=== PATIENT | male | born 1935 | race Caucasian/White ===

== ENCOUNTER 2017-08-10 13:09 | Observation (INO) ==
--- NOTE | 2017-08-10 14:25 | Emergency Department Note ---
Disposition Clinical Impression: Compression fracture Concussion without loss of consciousness Qualifiers: Encounter type: initial encounter Qualified Code(s): S06.0X0A - Concussion without loss of consciousness, initial encounter GI bleed Qualifiers: GI bleed type/associated pathology: unspecified gastrointestinal hemorrhage type Qualified Code(s): K92.2 - Gastrointestinal hemorrhage, unspecified Anemia Qualifiers: Anemia type: unspecified type Qualified Code(s): D64.9 - Anemia, unspecified Syncope Qualifiers: Syncope type: unspecified Qualified Code(s): R55 - Syncope and collapse Fall Qualifiers: Encounter type: initial encounter Qualified Code(s): W19.XXXA - Unspecified fall, initial encounter Disposition: Admitted As Inpatient Condition: Good Time of Disposition: 17:46 Fall HPI - General Chief Complaint: ED Fall Stated Complaint: skin tear s/p fall, back pain Time Seen by Provider: 08/10/17 14:11 Source: patient Mode of arrival: ambulatory Limitations: no limitations Nursing Notes Reviewed: Yes Vital Signs Reviewed: Yes - History of Present Illness HPI Narrative: Patient is an 81-year-old male who presents to [facility] ED with a chief complaint of fall. Patient was walking from the porch over to the kitchen when all of a sudden he went down. States he does not know what happened. Daughter states they are concerned because patient has been complaining of being more wobbly over the last weeks. He has had history of prior stroke with residual right-sided weakness. States he is supposed to walk around with a cane but he refuses to do so most of the time. Denies any chest pain, difficulty breathing, abdominal pain, problems with nausea or vomiting. No fever or chills. Patient complaining of recurrent right arm pain due to the laceration as well as lower back pain. Pt Subjective Complaint: fall Onset (ago): [employer] Fall From: standing Fall Witnessed: no Place Fall Occurred: home Loss of Consciousness: unsure Prolonged Down Time?: no Symptoms Prior to Fall: lightheadedness Location of injury: back Severity: moderate Quality: aching Associated symptoms (after fall): Reports: lightheaded. Denies: headache, neck pain, chest pain, shortness of breath, abdominal pain - Related Data Home Medications Medication Instructions Recorded Confirmed Aspirin [Lo-Dose Aspirin EC] 81 mg PO DAILY 08/10/17 08/10/17 Atorvastatin [Lipitor] 40 mg PO HS 08/10/17 08/10/17 Clopidogrel [Plavix] 75 mg PO DAILY 08/10/17 08/10/17 Multivit-Min/FA/Lycopen/Lutein [A 1 tab PO DAILY 08/10/17 08/10/17 Thru Z Select Men 50+ Tablet] Allergies Allergy/AdvReac Type Severity Reaction Status Date / Time No Known Allergies Allergy Verified 08/10/17 13:16 All systems ED: reviewed and negative except as stated. Fall PMH - Past Medical History Medical history: Reports: CVA, hypertension Psychiatric history: Reports: no psych history - Social History Smoking Status: Never smoker Alcohol use: Reports: none Drug use: Reports: none Physical Exam - General Limitations: no limitations General appearance: alert, in no apparent distress - Head Head exam: atraumatic, normocephalic, normal inspection - Eye Eye exam: Present: normal appearance, EOMI - ENT ENT exam: normal exam, normal oropharynx, mucous membranes moist - Neck Neck exam: Present: normal inspection, full ROM, trachea midline - Chest Chest inspection: Present: normal inspection, symmetric chest wall rise - Respiratory Respiratory exam: Present: normal lung sounds bilaterally - Cardiovascular Cardiovascular exam: Present: normal rhythm, tachycardia, normal heart sounds - Abdominal Exam Abdominal exam: Present: soft, Non-Tender. Absent: tenderness, distention, guarding, rebound, rigidity - Extremities Exam Extremities exam: Present: normal inspection, full ROM. Absent: tenderness, pedal edema - Expanded Upper Extremity Exam Forearm/Wrist exam: Present: laceration (9 cm laceration curvilinear) - Back Exam Back exam: Present: normal inspection, full ROM. Absent: tenderness - Neurological Exam Neurological exam: Present: alert, oriented X3 - Psychiatric Psychiatric exam: Present: normal affect, normal mood - Skin Skin exam: Present: warm, dry, pallor Course Course Narrative: Patient seen and examined. Tachycardic upon my exam. Denies any chest pain or difficulty breathing. Had a syncopal episode that was unprovoked and no prodromal symptoms. Cardiopulmonary workup initiated. Patient has a large skin tear to the right forearm. We will update tetanus and suture. Patient having some mid back pain. We will go ahead and do a CT of the head and lumbar spine. - Reevaluation(s) Reevaluation #1: Patient was grossly abnormal with his orthostatics. Standing, his blood pressure dropped to 89/46 with a pulse of 1:30. Liter of IV fluids was ordered. Head CT unremarkable. Lumbar CT shows some indeterminate compression fractures. Lab work shows a hemoglobin of 5.7. 2 units of packed rbc's ordered. I went back to ask the patient states he has any bleeding recently. He admits that he has had intermittent bleeds through his colon. Has not talked with his primary care physician about it because he thought he could wait until his appointment in October. I discussed with the endoscopist Dr. Oliver who states he will discuss with gastroenterology about scoping. Consult placed for gastroenterology. I discussed with the hospitalist Dr. Campa who has accepted patient for admission. Time: 17:42 Vital Signs Temperature 98.1 F 08/10/17 13:16 Pulse Rate 91 08/10/17 13:16 Respiratory Rate 20 08/10/17 13:16 Blood Pressure 136/58 08/10/17 13:16 O2 Sat by Pulse Oximetry 99 08/10/17 13:16 Temperature 98.6 F 08/10/17 17:34 Pulse Rate 116 08/10/17 17:40 Respiratory Rate 16 08/10/17 17:40 Blood Pressure 130/63 08/10/17 17:40 O2 Sat by Pulse Oximetry 98 08/10/17 17:40 Oxygen Delivery Oxygen Delivery Room Air Procedures - Laceration Laceration 1 Side (If applicable): right Size (cm): 9 Description: linear Depth: simple, single layer Local Anesthetic: lidocaine 1% Amount of Anesthesia Used (mL): 10 Pre-repair: wound explored, irrigated extensively, deep structures intact Skin layer closed with: nylon Size: 4-0 Number of sutures/abdiel: 17 Technique: simple, interrupted Fall - Medical Records Medical records reviewed: Yes I reviewed the patient's medical records. - Lab Data Lab results reviewed: Yes I reviewed the patient's lab results. Result diagrams: 08/10/17 14:40 08/10/17 14:40 Lab Results 08/10/17 08/10/17 08/10/17 Range/Units 14:40 14:40 15:58 WBC 11.3 H (4.3-11.1) K/mcL RBC 2.78 L (4.19-5.50) M/mcL Hgb 5.7 L* (12.9-16.9) g/dL Hct 19.5 L (37.5-50.1) % MCV 70.1 L (83.0-100.0) fL MCH 20.5 L (28.0-33.3) pg MCHC 29.2 L (31.6-35.5) g/dL RDW 16.4 H (11.5-14.5) % Plt Count 325 (140-400) K/mcL MPV 9.2 L (9.4-12.4) fL Immature Gran % 1.0 (0-4) % Seg Neutrophils % 77.3 % Lymphocytes % 15.4 % Monocytes % 6.0 % Eosinophils % 0.2 % Basophils % 0.1 % Neutrophils # 8.7 (1.6-8.9) K/mcL Lymphocytes # 1.7 (0.6-4.6) K/mcL Monocytes # 0.7 (0.0-1.3) K/mcL Eosinophils # 0.0 (0.0-0.6) K/mcL Basophils # 0.0 (0.0-0.2) K/mcL Nucleated RBCs/100 WBC 0.2 H (0) /100 WBC Platelet Estimate Normal (Normal) Hypochromasia Present A (Not Present) Anisocytosis 1+ A (Not Present) Microcytosis Present A (Not Present) Sodium 135 L (136-145) mEq/L Potassium 4.6 (3.5-5.1) mEq/L Chloride 106 (98-107) mEq/L Carbon Dioxide 21 L (23-29) mEq/L BUN 28 H (8-23) mg/dL Creatinine 1.07 (0.70-1.30) mg/dL Est GFR ( Amer) > 60 (> 60) Est GFR (Non-Af Amer) > 60 (> 60) BUN/Creatinine Ratio 26 (6-26) Glucose 106 H (70-105) mg/dL Calculated Osmolality 286 (280-300) Calcium 8.6 (8.6-10.3) mg/dL Iron < 10 L (65-175) mcg/dL % Saturation TNP Transferrin 330 (203-362) mg/dL Troponin I < 0.03 (< 0.04) ng/mL Blood Type O POSITIVE Antibody Screen NEGATIVE Crossmatch See Detail - Radiology Data Radiology results reviewed: Yes I reviewed the patient's radiology results. Chest X-Ray 08/10/17 14:21 IMPRESSION: No acute process. D/ / Gricelda Sibley MD / Gricelda Sibley MD Interpreting Provider: Gricelda Sibley MD Head CT 08/10/17 14:21 IMPRESSION: No acute intracranial abnormality. Mild atrophy and white matter changes consistent with chronic small vessel ischemic disease, similar in appearance. D/ / Gricelda Sibley MD / Gricelda Sibley MD Interpreting Provider: Gricelda Sibley MD Lumbar Spine CT 08/10/17 14:21 IMPRESSION: There is mild compression fracture involving the T12 vertebral body which is age indeterminate. Clinical correlation for focal point tenderness at this site recommended. If indicated, MRI may be helpful to evaluate for acuity and potential vertebral augmentation. Remote L2 and L4 compression fractures and multilevel degenerative changes in the lumbar spine. D/ / Gricelda Sibley MD / Gricelda Sibley MD Interpreting Provider: Gricelda Sibley MD - EKG Data EKG attestation: Yes I reviewed and interpreted this EKG. EKG results narrative: EKG done at 1437 shows normal sinus rhythm with a rate of [address] elevation or depression. Normal axis. Unchanged from prior EKG done 2014.
[2017-08-10] MEDS ORDERED: Lidocaine 1% 20 ML MDV ID ONE (14:27)
[2017-08-10 14:52] LABS: Basophils % 0.1 %; Mean Platelet Volume 9.2 fL (9.4-12.4); Nucleated Red Blood Cells 0.2 /100 WBC (0)
[2017-08-10 14:53] LABS: Eosinophils % 0.2 %; Hematocrit 19.5 % (37.5-50.1); Lymphocytes % 15.4 %; Mean Corpuscular HGB Conc 29.2 g/dL (31.6-35.5); Mean Corpuscular Hemoglobin 20.5 pg (28.0-33.3); Mean Corpuscular Volume 70.1 fL (83.0-100.0); Monocytes # 0.7 K/mcL (0.0-1.3); Platelet Count 325 K/mcL (140-400); Red Blood Count 2.78 M/mcL (4.19-5.50); Red Cell Distribution Width 16.4 % (11.5-14.5); Segmented Neutrophils % 77.3 %
[2017-08-10] MEDS ORDERED: 0.9 % Sodium Chloride 1,000 ML IVC ONE (14:57)
--- NOTE | 2017-08-10 15:05 | Emergency Department Note ---
Disposition Clinical Impression: Concussion without loss of consciousness Qualifiers: Encounter type: initial encounter Qualified Code(s): S06.0X0A - Concussion without loss of consciousness, initial encounter Disposition: Still a Patient Referrals: Vic Kong DO [Primary Care Provider] - Forms: ED Satisfaction Letter General Adult HPI - General Chief complaint: ED Fall Stated complaint: skin tear s/p fall, back pain Time Seen by Provider: 08/10/17 14:11 Source: patient Mode of arrival: ambulatory Limitations: no limitations - History of Present Illness Pain Scale: 5 - Related Data Allergies Allergy/AdvReac Type Severity Reaction Status Date / Time No Known Allergies Allergy Verified 08/10/17 13:16 Past Medical History - Past Medical History Medical history: Reports: CVA, hypertension Psychiatric history: Reports: no psych history - Social History Smoking Status: Never smoker Smokeless Tobacco Status: No Alcohol use: Reports: none Drug use: Reports: none Physical Exam - General Limitations: no limitations General appearance: alert, in no apparent distress Course - Reevaluation(s) Reevaluation #1: ATTESTATION NOTE I examined this patient and my medical decision-making was reviewed with the Resident Physician/[employer]/PA. I agree with the documented findings, disposition and treatment plan as described except to the extent set forth below. I have independently evaluated the patient, & had [id number] contact. Patient was seen with the emergency medicine resident MARIS GONZALEZ, please see a copy of her notes for details of the patient encounter. Briefly: 81-year-old male mechanical slip fall complains of head and low back pain. Is not on blood thinners. CT scans are pending. Screening labs are pending. EKG shows no acute ischemic changes. Patient is GCS 15. Disposition pending. Time: 15:04 Vital Signs Temperature 98.1 F 08/10/17 13:16 Pulse Rate 91 08/10/17 13:16 Respiratory Rate 20 08/10/17 13:16 Blood Pressure 136/58 08/10/17 13:16 O2 Sat by Pulse Oximetry 99 08/10/17 13:16 Temperature 98.1 F 08/10/17 14:13 Pulse Rate 115 08/10/17 14:34 Respiratory Rate 16 08/10/17 14:21 Blood Pressure 121/56 08/10/17 14:34 O2 Sat by Pulse Oximetry 99 08/10/17 14:21 Oxygen Delivery Oxygen Delivery Room Air
[2017-08-10 15:13] LABS: Troponin I < 0.03 ng/mL (< 0.04)
[2017-08-10] MEDS ORDERED: Tdap (ADACEL) Vaccine 0.5 ML IM ONE (15:15)
[2017-08-10 15:32] LABS: BUN/Creatinine Ratio 26 (6-26); Blood Urea Nitrogen 28 mg/dL (8-23); Calcium 8.6 mg/dL (8.6-10.3); Carbon Dioxide 21 mEq/L (23-29); Chloride 106 mEq/L (98-107); Glucose 106 mg/dL (70-105); Osmolality,Calculated 286 (280-300); Potassium 4.6 mEq/L (3.5-5.1); Sodium 135 mEq/L (136-145); eGFR For African Americans > 60 (> 60); eGFR For Non-African Americans > 60 (> 60)
[2017-08-10 15:33] LABS: Lymphocytes # 1.7 K/mcL (0.6-4.6); Neutrophils # 8.7 K/mcL (1.6-8.9)
[2017-08-10 15:34] LABS: Hemoglobin 5.7 g/dL (12.9-16.9)
[2017-08-10 15:35] LABS: Anisocytosis 1+ (Not Present); Hypochromasia Present (Not Present); Microcytosis Present (Not Present); Platelet Estimate Normal (Normal)
[2017-08-10] MEDS ORDERED: Tdap (Boostrix) Vaccine 0.5 ML SYRINGE IM ONE (16:11)
[2017-08-10] MEDS ORDERED: Ondansetron 4 MG/2 ML VIAL IVP PRN (16:38)
[2017-08-10] MEDS ORDERED: *HR* Promethazine 25 MG/ML VIAL IVP PRN (16:38)
[2017-08-10] MEDS ORDERED: Naloxone 0.4 MG/ML INJ IVP PRN (16:38)
[2017-08-10] MEDS ORDERED: Pantoprazole 80 MG in 0.9 % Sodium Chloride 50 ML IVPB ONE (16:47)
[2017-08-10 17:12] LABS: Iron < 10 mcg/dL (65-175); Transferrin 330 mg/dL (203-362)
[2017-08-10] MEDS ORDERED: 0.9 % Sodium Chloride 250 ML ONE ×2 (17:18→22:52)
--- NOTE | 2017-08-10 17:54 | Internal Med History&Physical ---
Date of Encounter: 08/10/17 Time of Encounter: 17:20 Internal Medicine - H&P: HPI Chief complaint: Syncope Admitted From: Emergency Dept Plans for Post Hospital Care: Home History of present illness: Mr. Scott is a 81 year old male with known PMH of HTN, HLD and CVA was brought into ER by family stating that he had a fall this morning. Patient was walking from the porch over to the kitchen when all of a sudden he went down. States he does not know what happened. Daughter states they are concerned because patient has been complaining of being more wobbly over the last weeks. Pt also mentioned melena and dark blood in his stool on and off from last 2-3 months with some abdominal pain. He does have low back pain too for which he is taking Aleve as needed 2-3 times per week. He does have big laceration over Rt arm Past Med Surg Social Fam HX - Past Medical History Medical history: CVA, hypertension Psychiatric history: no psych history - Social History Smoking Status: Never smoker Smokeless Tobacco Status: No Alcohol use: none Drug use: none Internal Medicine - H&P: Meds Aspirin [Lo-Dose Aspirin EC] 81 mg PO DAILY 08/10/17 [History] Atorvastatin [Lipitor] 40 mg PO HS 08/10/17 [History] Clopidogrel [Plavix] 75 mg PO DAILY 08/10/17 [History] Multivit-Min/FA/Lycopen/Lutein [A Thru Z Select Men 50+ Tablet] 1 tab PO DAILY 08/10/17 [History] 3 Allergy/AdvReac Type Severity Reaction Status Date / Time No Known Allergies Allergy Verified 08/10/17 13:16 All Systems PM: A 10-system review of systems was performed and is negative for pertinent findings except as documented above in the HPI. Review of systems: All the systems are reviewed everything is benign except the systems and symptoms I mentioned in the history of present illness - Constitutional Vitals: Temp Pulse Resp BP Pulse Ox 98.6 F 116 16 130/63 98 08/10/17 17:34 08/10/17 17:40 08/10/17 17:40 08/10/17 17:40 08/10/17 17:40 General appearance: Present: A&O X 3, no acute distress - Neck Neck exam general surgery: Present: supple - Respiratory Respiratory exam: Present: decreased breath sounds. Absent: rales, respiratory distress, rhonchi, wheezes - Cardiovascular Cardiovascular exam: Present: +S1, +S2, tachycardia. Absent: systolic murmur - GI/Abdominal GI/Abdominal exam: Present: normal bowel sounds, soft. Absent: rebound, rigid, tenderness - Extremities Exam Extremities exam: Absent: calf tenderness, pedal edema, tenderness Additional comments: laceration over Rt forearm - Neurological Exam Neurological exam: Present: alert, oriented X3 - Psychiatric Psychiatric exam: Present: normal affect, normal mood Internal Med - H&P Results - Labs CBC & Chem 7: 08/10/17 14:40 08/10/17 14:40 - Assessment and plan (1) Acute blood loss anemia Current Visit: Yes Status: Acute Assessment and plan: Admit the pt into Tele His Hb @ 5.7 Will trnasfuse 2 U PRBC now check H/H 2hrs after that cont close monitoring of Hb Q6hr Cont transfusing PRN basis to keep Hb > 7.0 GI consulted - Possible EGD in AM NPO now IV hydration Check iron studies Protonic gtt started now (2) Syncope Current Visit: Yes Status: Acute Assessment and plan: Due to ortho static with anemia on tele check serial trop 2D Echo ordered Qualifiers: Syncope type: unspecified Qualified Code(s): R55 - Syncope and collapse (3) Compression fracture Current Visit: Yes Status: Acute Assessment and plan: Noticed T12 - age undeterminate fx and remote L2l L4 fx Need bone scan as an out pt PT / OT eval PO analgesics PRN (4) H/O: CVA (cerebrovascular accident) Current Visit: Yes Status: Acute Assessment and plan: Held ASA due to GI bleed (5) HTN (hypertension) Current Visit: Yes Status: Acute Assessment and plan: stable with home meds resumed all home meds Qualifiers: Hypertension type: essential hypertension Qualified Code(s): I10 - Essential (primary) hypertension - Time Spent With Patient Total time spent is greater than 50% in coordination of care (as documented) at patient's floor/unit and/or counseling patient:
[2017-08-10] MEDS: 0.9 % Sodium Chloride 1,000 ML IVC SCH (19:59)
[2017-08-10] MEDS: Pantoprazole 40 MG in 0.9 % Sodium Chloride Mini Bag 100 ML IVC SCH (20:16)
[2017-08-10] MEDS: *HR* HYDROcodone/Acet 5/325 mg TABLET PO PRN (23:13)
[2017-08-11] MEDS: Pantoprazole 40 MG in 0.9 % Sodium Chloride Mini Bag 100 ML IVC SCH ×2 (00:51→05:57)
[2017-08-11 05:14] LABS: Basophils % 0.3 %; Eosinophils # 0.1 K/mcL (0.0-0.6); Eosinophils % 1.6 %; Hematocrit 25.9 % (37.5-50.1); Hemoglobin 7.8 g/dL (12.9-16.9); Immature Granulocytes % 0.3 % (0-4); Lymphocytes # 1.8 K/mcL (0.6-4.6); Lymphocytes % 28.2 %; Mean Corpuscular HGB Conc 30.1 g/dL (31.6-35.5); Mean Platelet Volume 9.7 fL (9.4-12.4); Monocytes # 0.8 K/mcL (0.0-1.3); Monocytes % 11.9 %; Neutrophils # 3.7 K/mcL (1.6-8.9); Platelet Count 229 K/mcL (140-400); Red Blood Count 3.39 M/mcL (4.19-5.50); Red Cell Distribution Width 18.2 % (11.5-14.5); Segmented Neutrophils % 57.7 %
[2017-08-11 05:15] LABS: Mean Corpuscular Volume 76.4 fL (83.0-100.0)
[2017-08-11 05:31] LABS: BUN/Creatinine Ratio 24 (6-26); Blood Urea Nitrogen 21 mg/dL (8-23); Calcium 7.9 mg/dL (8.6-10.3); Carbon Dioxide 19 mEq/L (23-29); Chloride 110 mEq/L (98-107); Glucose 82 mg/dL (70-105); Osmolality,Calculated 282 (280-300); Potassium 4.4 mEq/L (3.5-5.1); Sodium 135 mEq/L (136-145); eGFR For African Americans > 60 (> 60); eGFR For Non-African Americans > 60 (> 60)
[2017-08-11] MEDS: 0.9 % Sodium Chloride 1,000 ML IVC SCH (05:58)
[2017-08-11 06:33] LABS: Bilirubin,Urine Negative (Negative); Blood,Urine Negative (Negative); Clarity,Urine Clear (Clear); Color,Urine Yellow (Yellow); Glucose,Urine (UA) Normal (Normal); Ketones,Urine Negative (Negative); Leukocyte Esterase,Urine Negative (Negative); Nitrite,Urine Negative (Negative); Protein,Urine Negative (Neg-Trace); Specific Gravity,Urine 1.012 (1.010-1.025); Urobilinogen,Urine Normal (Normal)
--- NOTE | 2017-08-11 07:16 | Electrocardiograph Report ---
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
[2017-08-11 07:51] LABS: Hematocrit 24.6 % (37.5-50.1); Hemoglobin 7.8 g/dL (12.9-16.9)
[2017-08-11] MEDS: *HR* HYDROcodone/Acet 5/325 mg TABLET PO PRN ×2 (09:08→17:25)
[2017-08-11] MEDS: Multivit/Ca/Min/Fe/FA 1 TAB TABLET PO SCH (09:08)
--- NOTE | 2017-08-11 09:16 | Internal Med Progress Note ---
<Shyam Saldaña Jacob - Last Filed: 08/11/17 14:50> Date of Encounter: 08/11/17 Time of Encounter: 09:14 - Assessment and plan (1) Acute blood loss anemia Current Visit: Yes Status: Acute Assessment and plan: Hb 5.7 on arrival Up to 7.8 after of 2 Units pRBC. Iron <10, transferrin 300. Continue monitoring H/H q6h. GI already consulted per ED, plan for endoscopy today. Continue NPO and Protonix and IV fluids Consider additional transfusion if Hb <7 Hold aspirin. (2) Syncope Current Visit: Yes Status: Acute Assessment and plan: Othostatic syncope vs blood loss anemia. Troponin 0.03 x2 Echo pending. Qualifiers: Syncope type: unspecified Qualified Code(s): R55 - Syncope and collapse (3) Compression fracture Current Visit: Yes Status: Acute Assessment and plan: T12 vertebral compression fracture of indeterminate age Remote L2 and L4 compression fracture Bone scan as outpatin. (4) H/O: CVA (cerebrovascular accident) Current Visit: Yes Status: Acute Assessment and plan: Held ASA due to GI bleed (5) HTN (hypertension) Current Visit: Yes Status: Acute Assessment and plan: stable with home meds resumed all home meds Qualifiers: Hypertension type: essential hypertension Qualified Code(s): I10 - Essential (primary) hypertension - Time Spent With Patient Total time spent is greater than 50% in coordination of care (as documented) at patient's floor/unit and/or counseling patient: - Subjective Interval history: Reports doing well, much improved from time of admission per . Denies lightheadedness, dizziness, or headaches. Has had off and on blood in stools over past couple months. Patient currently denies fevers, chills, sweats, headache, changes in vision, chest pain, shortness of breath, abdominal pain, changes in bowels or bladder, dysuria, weakness, or loss of sensation. - Constitutional Vitals: Temp Pulse Resp BP Pulse Ox 98 F 90 16 132/79 96 08/11/17 07:42 08/11/17 07:42 08/11/17 07:42 08/11/17 07:42 08/11/17 07:42 General appearance: Present: A&O X 3, pleasant, no acute distress, answers questions appropriately - Head Head exam: Present: atraumatic, normal inspection, normocephalic - Eye Eye exam: Present: EOMI, normal appearance - ENT ENT exam: Present: mucous membranes dry, normal exam - Neck Neck exam general surgery: Present: full ROM, normal inspection, supple, trachea midline - Respiratory Respiratory exam: Present: CTAB. Absent: rales, respiratory distress, rhonchi, wheezes - Cardiovascular Cardiovascular exam: Present: RRR, +S1, +S2 - GI/Abdominal GI/Abdominal exam: Present: normal bowel sounds, soft. Absent: distended, tenderness - Extremities Exam Extremities exam: Present: full ROM, normal inspection, warm, radial pulses palpable and symmetrical. Absent: pedal edema - Skin Skin exam: Present: dry, intact, normal color, warm Additional comments: Right arm laceration dressed clean dry and intact. Internal Medicine: Result - Labs CBC & Chem 7: 08/11/17 07:41 08/11/17 04:52 Labs: Short CBC 08/11/17 08/11/17 Range/Units 04:52 07:41 WBC 6.4 (4.3-11.1) K/mcL Hgb 7.8 L D 7.8 L (12.9-16.9) g/dL Hct 25.9 L 24.6 L (37.5-50.1) % Plt Count 229 (140-400) K/mcL Neutrophils # 3.7 (1.6-8.9) K/mcL BMP 08/11/17 04:52 Sodium 135 L Potassium 4.4 Chloride 110 H Carbon Dioxide 19 L BUN 21 Creatinine 0.89 Glucose 82 Calcium 7.9 L Cardiac Enzymes 08/10/17 Range/Units 20:08 Troponin I < 0.03 (< 0.04) ng/mL Urine 08/11/17 Range/Units 06:19 Urine Color Yellow (Yellow) Urine Clarity Clear (Clear) Urine pH 6.0 (5.0-8.0) pH Units Ur Specific [place] 1.012 (1.010-1.025) Urine Protein Negative (Neg-Trace) mg/dL Urine Glucose (UA) Normal (Normal) mg/dL Consult Discharge Plan - Plan Referrals: Vic Kong DO [Primary Care Provider] - <Kendall Dixon - Last Filed: 08/11/17 16:31> Date of Encounter: 08/11/17 - Assessment and plan (1) Syncope Current Visit: Yes Status: Acute Qualifiers: Syncope type: unspecified Qualified Code(s): R55 - Syncope and collapse (2) Compression fracture Current Visit: Yes Status: Acute (3) Acute blood loss anemia Current Visit: Yes Status: Acute (4) H/O: CVA (cerebrovascular accident) Current Visit: Yes Status: Acute (5) HTN (hypertension) Current Visit: Yes Status: Acute Qualifiers: Hypertension type: essential hypertension Qualified Code(s): I10 - Essential (primary) hypertension (6) GI bleed Current Visit: Yes Status: Acute Qualifiers: GI bleed type/associated pathology: melena Qualified Code(s): K92.1 - Melena - Time Spent With Patient Total time spent is greater than 50% in coordination of care (as documented) at patient's floor/unit and/or counseling patient: - Constitutional Vitals: Temp Pulse Resp BP Pulse Ox 97.8 F 99 16 147/66 94 08/11/17 16:08 08/11/17 16:08 08/11/17 16:08 08/11/17 16:08 08/11/17 16:08 Internal Medicine: Result - Labs CBC & Chem 7: 08/11/17 14:20 08/11/17 04:52 Labs: Short CBC 08/11/17 08/11/17 08/11/17 Range/Units 04:52 07:41 14:20 WBC 6.4 (4.3-11.1) K/mcL Hgb 7.8 L D 7.8 L 8.3 L (12.9-16.9) g/dL Hct 25.9 L 24.6 L 26.7 L (37.5-50.1) % Plt Count 229 (140-400) K/mcL Neutrophils # 3.7 (1.6-8.9) K/mcL BMP 08/11/17 04:52 Sodium 135 L Potassium 4.4 Chloride 110 H Carbon Dioxide 19 L BUN 21 Creatinine 0.89 Glucose 82 Calcium 7.9 L Cardiac Enzymes 08/10/17 Range/Units 20:08 Troponin I < 0.03 (< 0.04) ng/mL Urine 08/11/17 Range/Units 06:19 Urine Color Yellow (Yellow) Urine Clarity Clear (Clear) Urine pH 6.0 (5.0-8.0) pH Units Ur Specific [place] 1.012 (1.010-1.025) Urine Protein Negative (Neg-Trace) mg/dL Urine Glucose (UA) Normal (Normal) mg/dL - Impressions Impressions Echocardiogram 08/11/17 18:03 Impressions: LVEF 55%. Mild left ventricular diastolic dysfunction. Normal right ventricular structure and function. Severely dilated left atrium. Mild mitral regurgitation. Mild-moderate tricuspid regurgitation. Mild pulmonic regurgitation. Mild pulmonary hypertension. Left Ventricular Wall Motion: Rest Echo Findings All wall segments showed normal motion. Findings: Study Quality * Technically adequate exam. ECG Findings * Normal sinus rhythm. Left Ventricle * LVEF 55%. * Normal LV chamber size, wall thickness and function. * Mild left ventricular diastolic dysfunction. Right Ventricle * Normal right ventricular structure and function. Left Atrium * Severely dilated left atrium. Right Atrium * Normal right atrial size. Mitral Valve * Normal mitral valve structure. * No mitral stenosis. * Mild mitral regurgitation. Aortic Valve * No aortic regurgitation. * Trileaflet aortic valve. * Mildly thickened aortic valve leaflets. * No aortic stenosis. Tricuspid Valve * Mild-moderate tricuspid regurgitation. * Normal tricuspid valve structure. * Estimated RA pressure is 3 mmHg. * Estimated RVSP is 47 mmHg. * Mild pulmonary hypertension. Pulmonic Valve * Pulmonic valve is not well visualized. * No pulmonic stenosis. * Mild pulmonic regurgitation. Pulmonary Artery * Pulmonary artery not well visualized. Aorta * Normally sized aortic root. * Ascending aorta is not well visualized. Pericardium * There is no pericardial effusion present. Interatrial Septum * No evidence of PFO by color Doppler. IVC * Normal IVC dimensions and inspiratory collapse. - Attending Attestation I examined this patient and my medical decision-making was reviewed with the Resident Physician on 08/11/17. I agree with the documented findings, disposition and treatment plan as described except to the extent set forth below. Mr Scott is currently admitted for anemia and presumed GI bleed. He remains moderate to high risk due to potential for worsening clinical status. Mr Scott had EGD today - no bleeding. No have colonoscopy tomorrow. No fever or chills. Tolerated blood transfusions. Exam alert Comfortable Mucus membranes dry Heart reg No wheeze I/P 1. Anemia 2. Melena Further diagnoses and plan as above.
[2017-08-11] MEDS ORDERED: *HR* Propofol 200 MG/20 ML VIAL IVP ONE (12:33)
[2017-08-11] MEDS ORDERED: 0.9 % Sodium Chloride 1,000 ML IVC SCH (12:45)
--- NOTE | 2017-08-11 12:59 | Anesthesia Evaluation PreOp ---
Date of Encounter: 08/11/17 Time of Encounter: 12:56 - Past History Planned Operation: EGD Cardiac History: Hyperlipidemia Pulmonary History: Former smoker (quit in 1984) [employer] ADJUSTER History: CVA, Syncope Other Medical History: Denies Any Significant HX Anesthesia History: No Prior Anesthetic Complications, Past Anesthesia Alcohol Use: none Drug use: none Medications and Allergies Aspirin [Lo-Dose Aspirin EC] 81 mg PO DAILY 08/10/17 [History] Atorvastatin [Lipitor] 40 mg PO HS 08/10/17 [History] Clopidogrel [Plavix] 75 mg PO DAILY 08/10/17 [History] Multivit-Min/FA/Lycopen/Lutein [A Thru Z Select Men 50+ Tablet] 1 tab PO DAILY 08/10/17 [History] 3 Allergy/AdvReac Type Severity Reaction Status Date / Time No Known Allergies Allergy Verified 08/10/17 13:16 - Meds/Allergy Pre-op Review Medications Reviewed: Yes Allergies Reviewed: Yes Beta Blockers on Current Med List: No Anesthesia Results - Labs 08/11/17 07:41 08/11/17 04:52 - Imaging EKG: report reviewed (08/10/2017 SINUS RHYTHM) Additional studies: 10/02/2014 Echo Impressions: Normal left ventricular systolic function, LVEF 60-65%. Mild left ventricular diastolic dysfunction. Normal right ventricular structure and function. Mildly dilated left atrium. No evidence of PFO with agitated saline contrast (limited quality study). No significant valvular dysfunction. No evidence of pulmonary hypertension. Anesthesia Exam Vital Signs/O2 Sat, Most Current Temp Pulse Resp BP Pulse Ox 97.8 F 80 16 141/74 97 08/11/17 12:40 08/11/17 12:40 08/11/17 12:40 08/11/17 12:40 08/11/17 12:40 Height: 5'8''/1.73m Weight: 129 lbs/58.8 kg NPO (# of Hours): 8 Pain Scale: 0 Pain Scale Used: Numeric (1 - 10) - HEENT Pupil (Motor): EOMI Mallampati: II Teeth: Edentulous Denture Type: Upper: Complete, Lower: Complete Oral Opening: Greater than 3 - [employer] ADJUSTER LOC: Oriented [employer] ADJUST[employer] Motor: Normal RUE, Normal LUE, Normal LLE, Normal Face, Deficit RLE [employer] ADJUSTER Sensory: Normal: RUE, LUE, RLE, LLE, Face - Cardiac Rhythm: Regular Murmur: None - Pulmonary Breath Sounds: bilateral Clear Respiratory Effort: Symmetrical Anesthesia Assess/Plan ASA Score: 3 Modified Stout Scale for Level of Consciousness: Cooperative, oriented, and tranquil Anesthetic Plan: MAC Monitoring Plan: Standard Monitors
[2017-08-11] MEDS ORDERED: Tetracaine/Benzocaine/Butamben 200MG/SPRAY (100SPY/BOT) MM ONE (13:35)
--- NOTE | 2017-08-11 13:58 | Gastroenterology Consult Note ---
<Ye Vivar - Last Filed: 08/11/17 13:54> Date of Encounter: 08/11/17 Time of Encounter: 10:40 - Assessment and plan (1) GI bleed Current Visit: Yes Status: Acute Assessment and plan: Patient with melena. Plan for EGD today to r/o esophagitis, gastritis, duodenitis, PUD, MW tear, or AVM. Keep NPO for EGD. Continue PPI. Qualifiers: GI bleed type/associated pathology: unspecified gastrointestinal hemorrhage type Qualified Code(s): K92.2 - Gastrointestinal hemorrhage, unspecified (2) Anemia Current Visit: Yes Status: Acute Assessment and plan: Hgb on admission was 5.7 and this AM Hgb 7.8. Continue to monitor CBC and transfuse PRBC as needed. Qualifiers: Anemia type: unspecified type Qualified Code(s): D64.9 - Anemia, unspecified - Time Spent With Patient Total time spent is greater than 50% in coordination of care (as documented) at patient's floor/unit and/or counseling patient: GI History of Present Illness - Data of Consult Patient: new to practice Consult date: 08/11/17 Requesting Physician: Kendall Dixon DO - Consult Narrative Reason for consult: GI bleed History of present illness: Mr. Scott is a 81 year old male with PMHx of HTN, HLD, CVA presented to the ED following a fall. Patient was walking from the porch over to the kitchen when all of a sudden he went down. Daughter reports concern because the patient had been complaining of being more wobbly over the past few week. The patient reported melena and dark blood in his stool for the past 2-3 months with some abdominal pain. He takes Aleve 2-3 times per week for back pain. Hgb on admission was 5.7 and this AM Hgb 7.8. He denies fever, chills, chest pain, shortness of breath, abdominal pain. Procedures: None NSAIDs: ASA, Aleve Anticoagulation: Plavix Past Med Surg Social Fam HX - Past Medical History Medical history: CVA, hypertension Psychiatric history: no psych history - Social History Smoking Status: Never smoker Smokeless Tobacco Status: No Alcohol use: none Drug use: none - Family History Mother History Unknown: Yes Father Living Status: Age at : 76 Hx Family Cardiac Disorders: Yes Hx Family Respiratory Disorders: No Hx Family Neurologic Disorders: Yes Hx Family Medical Disorders: Yes - Gastrointestinal Gastrointestinal: Present: as per HPI - Constitutional Constitutional: as per HPI - EENT Eyes: as per HPI Ears: Present: as per HPI Nose, mouth and throat: Present: as per HPI - Cardiovascular Cardiovascular ROS: Present: as per HPI - Respiratory Respiratory IM: Present: as per HPI - Genitourinary Genitourinary: Absent: change in color, Urinary frequency - Neurological ROS Neurological GI: Present: as per HPI - Hematologic/Lymphatic Hematologic/Lymphatic pediatric: Present: as per HPI - Musculoskeletal Musculoskeletal ROS GI: Present: as per HPI - Integumentary Integumentary GI: Present: as per HPI - Psychiatric ROS Psychiatric GI: Present: as per HPI - Endocrine Endocrine IM: Present: as per HPI - Constitutional Vitals: Temp Pulse Resp BP Pulse Ox 97.8 F 80 16 141/74 97 08/11/17 12:40 08/11/17 12:40 08/11/17 12:40 08/11/17 12:40 08/11/17 12:40 General appearance: Present: cooperative, A&O X 3, no acute distress, answers questions appropriately - Head Head exam: Present: atraumatic, normocephalic - Eye Eye exam: Present: normal appearance, sclera anicteric - ENT ENT exam: Present: mucous membranes dry - Neck Neck exam general surgery: Present: normal inspection, trachea midline - Respiratory Respiratory exam: Present: decreased breath sounds, CTAB. Absent: rales, rhonchi, wheezes - Cardiovascular Cardiovascular exam: Present: RRR, +S1, +S2 - GI/Abdominal GI/Abdominal exam: Present: soft, no peritoneal signs. Absent: distended, firm , guarding, tenderness - Rectal Rectal exam: Present: deferred - Extremities Exam Extremities exam: Present: warm - Neurological Exam Neurological exam: Present: no focal deficits - Psychiatric Psychiatric exam: Present: normal affect, normal mood - Skin Skin exam: Present: dry, intact, normal color, warm Results - Labs CBC & Chem 7: 08/11/17 07:41 08/11/17 04:52 Labs: Last Result Calcium 7.9 mg/dL (8.6-10.3) L 08/11/17 04:52 Iron < 10 mcg/dL (65-175) L 08/10/17 14:40 % Saturation TNP 08/10/17 14:40 Transferrin 330 mg/dL (203-362) 08/10/17 14:40 Troponin I < 0.03 ng/mL (< 0.04) 08/10/17 20:08 Entire Visit Hgb 7.8 g/dL (12.9-16.9) L 08/11/17 07:41 Hct 24.6 % (37.5-50.1) L 08/11/17 07:41 Consult Discharge Plan - Plan Referrals: Vic Kong DO [Primary Care Provider] - <Charlie Garcia - Last Filed: 08/12/17 04:19> Date of Encounter: 08/11/17 - Time Spent With Patient Total time spent is greater than 50% in coordination of care (as documented) at patient's floor/unit and/or counseling patient: GI History of Present Illness - Data of Consult Requesting Physician: Kendall Dixon DO - Consult Narrative History of present illness: Mr. Scott is a 81 year old male - Constitutional Vitals: Temp Pulse Resp BP Pulse Ox 97.7 F 105 18 145/75 95 08/12/17 00:33 08/12/17 00:33 08/12/17 00:33 08/12/17 00:33 08/12/17 00:33 Results - Labs CBC & Chem 7: 08/11/17 22:01 08/11/17 04:52 Labs: Last Result Calcium 7.9 mg/dL (8.6-10.3) L 08/11/17 04:52 Iron < 10 mcg/dL (65-175) L 08/10/17 14:40 % Saturation TNP 08/10/17 14:40 Transferrin 330 mg/dL (203-362) 08/10/17 14:40 Troponin I < 0.03 ng/mL (< 0.04) 08/10/17 20:08 Entire Visit Hgb 8.1 g/dL (12.9-16.9) L 08/11/17 22:01 Hct 26.5 % (37.5-50.1) L 08/11/17 22:01 - Impressions Impressions Echocardiogram 08/11/17 18:03 Impressions: LVEF 55%. Mild left ventricular diastolic dysfunction. Normal right ventricular structure and function. Severely dilated left atrium. Mild mitral regurgitation. Mild-moderate tricuspid regurgitation. Mild pulmonic regurgitation. Mild pulmonary hypertension. Left Ventricular Wall Motion: Rest Echo Findings All wall segments showed normal motion. Findings: Study Quality * Technically adequate exam. ECG Findings * Normal sinus rhythm. Left Ventricle * LVEF 55%. * Normal LV chamber size, wall thickness and function. * Mild left ventricular diastolic dysfunction. Right Ventricle * Normal right ventricular structure and function. Left Atrium * Severely dilated left atrium. Right Atrium * Normal right atrial size. Mitral Valve * Normal mitral valve structure. * No mitral stenosis. * Mild mitral regurgitation. Aortic Valve * No aortic regurgitation. * Trileaflet aortic valve. * Mildly thickened aortic valve leaflets. * No aortic stenosis. Tricuspid Valve * Mild-moderate tricuspid regurgitation. * Normal tricuspid valve structure. * Estimated RA pressure is 3 mmHg. * Estimated RVSP is 47 mmHg. * Mild pulmonary hypertension. Pulmonic Valve * Pulmonic valve is not well visualized. * No pulmonic stenosis. * Mild pulmonic regurgitation. Pulmonary Artery * Pulmonary artery not well visualized. Aorta * Normally sized aortic root. * Ascending aorta is not well visualized. Pericardium * There is no pericardial effusion present. Interatrial Septum * No evidence of PFO by color Doppler. IVC * Normal IVC dimensions and inspiratory collapse. - Attending Attestation 7.-year-old white female alert and oriented 3 comes in with severe anemia with a hemoglobin of 5.7 g percent transfused with 2 units up to 7.8% no evidence of any gross bleeding. Patient has never had this issue before and other than a cerebrovascular accident in 2006 has never been hospitalized in his life. Patient's anticoagulated with Plavix and aspirin differential diagnosis is quite wide including neoplasm given his age group. His never had endoscopy to date for plan: EGD today and a colonoscopy tomorrow thank you for this consultation I have personally performed a face to face evaluation on this patient. I have reviewed and agree with the care plan. History and Exam by me shows:
[2017-08-11 14:54] LABS: Hematocrit 26.7 % (37.5-50.1); Hemoglobin 8.3 g/dL (12.9-16.9)
[2017-08-11] MEDS ORDERED: SODIUM CHLORIDE/NAHCO3/KCL/PEG 4,000 ML SOLN.RECON PO ONE (17:00)
[2017-08-11] MEDS: Pantoprazole 40 MG VIAL IVP SCH (17:29)
[2017-08-11 22:23] LABS: Hematocrit 26.5 % (37.5-50.1); Hemoglobin 8.1 g/dL (12.9-16.9)
[2017-08-12] MEDS: *HR* HYDROcodone/Acet 5/325 mg TABLET PO PRN ×2 (01:56→11:06)
[2017-08-12] MEDS ORDERED: Polyethylene Glycol 3350 255 GM POWDER PO ONE (02:05)
[2017-08-12] MEDS ORDERED: Ipratropium/Albuterol Neb 3 ML IH ONE (03:49)
[2017-08-12] MEDS ORDERED: Ipratropium/Albuterol Neb 3 ML ONE (03:57)
[2017-08-12 04:45] LABS: Basophils % 0.3 %; Eosinophils # 0.2 K/mcL (0.0-0.6); Eosinophils % 1.9 %; Hematocrit 25.9 % (37.5-50.1); Hemoglobin 8.2 g/dL (12.9-16.9); Immature Granulocytes % 0.4 % (0-4); Lymphocytes # 1.6 K/mcL (0.6-4.6); Lymphocytes % 21.2 %; Mean Corpuscular HGB Conc 31.7 g/dL (31.6-35.5); Mean Corpuscular Hemoglobin 23.6 pg (28.0-33.3); Mean Corpuscular Volume 74.4 fL (83.0-100.0); Mean Platelet Volume 9.3 fL (9.4-12.4); Monocytes # 0.6 K/mcL (0.0-1.3); Monocytes % 8.3 %; Neutrophils # 5.2 K/mcL (1.6-8.9); Nucleated Red Blood Cells 0.3 /100 WBC (0); Platelet Count 238 K/mcL (140-400); Red Blood Count 3.48 M/mcL (4.19-5.50); Red Cell Distribution Width 18.4 % (11.5-14.5); Segmented Neutrophils % 67.9 %
[2017-08-12 05:06] LABS: BUN/Creatinine Ratio 23 (6-26); Blood Urea Nitrogen 18 mg/dL (8-23); Calcium 8.1 mg/dL (8.6-10.3); Carbon Dioxide 19 mEq/L (23-29); Chloride 109 mEq/L (98-107); Glucose 90 mg/dL (70-105); Osmolality,Calculated 279 (280-300); Potassium 3.9 mEq/L (3.5-5.1); Sodium 134 mEq/L (136-145); eGFR For African Americans > 60 (> 60); eGFR For Non-African Americans > 60 (> 60)
[2017-08-12] MEDS: Pantoprazole 40 MG VIAL IVP SCH (06:08)
[2017-08-12] MEDS: Multivit/Ca/Min/Fe/FA 1 TAB TABLET PO SCH (08:25)
--- NOTE | 2017-08-12 10:04 | Discharge Summary ---
<EleanormahiRomanaShyampeggy James - Last Filed: 08/12/17 11:23> - NOTES TO OUTPATIENT PROVIDER Notes to Outpatient Provider: Mr. Scott was admitted after sustaining a fall at home and was determined to have a Hb 5.7. Received 2 Units pRBC. Patient's mental status improved. CT Head was negative for acute findings. Upper endoscopy revealed hiatal hernia and nonbleeding erostive gastropathy. Echo revealed EF 55%, severely dilated LA, mild pulm htn, mild pulmonic regurg, mild mitral regurg, and mild tricuspid regurg. Hb has been stable at 8.1 and 8.2 after pRBC on admission. Patient was initially planned to complete a Colonoscopy, but didn't finish the bowel prep and requested to be discharged. Patient will have close followup for colonoscopy with GI. Continue hold plavix and aspirin until completion of colonoscopy to evaluate gi bleed. Orders not resulted at time of discharge: Pending orders 08/12/17 10:00 Hemoglobin and Hematocrit [HEME] Q6H 08/12/17 16:00 Hemoglobin and Hematocrit [HEME] Q6H Date of Encounter: 08/12/17 Time of Encounter: 10:01 - Discharge Diagnosis (1) GI bleed Priority: Primary Status: Acute Assessment and Plan: Hb 5.7 on arrival, received 2 Units pRBC, with improvement to 7.8 and on repeat labs >8.0. EGD revealed nonbleeding erosive gastropathy and hiatal hernia. Planned for colonscopy, but didn't complete bowel prep and requested discharge. Discussed with patient the importance of completing endoscopy studies for gi bleed; however family and patient requests to leave. Hb stable. Follow up with GI as outpatient. Qualifiers: GI bleed type/associated pathology: melena Qualified Code(s): K92.1 - Melena (2) Acute blood loss anemia Priority: Primary Status: Acute Assessment and Plan: Hb 5.7 on arrival Up to 7.8 after of 2 Units pRBC. Repeat levels >8.0 x 3 Iron <10, transferrin 300. GI completed upper endoscopy per plan in assessment above. Continue holding aspirin Continue with protonix May restart diet as patient is planned to be discharged per request. Hb has been stable. (3) Syncope Priority: Primary Status: Acute Assessment and Plan: Blood loss anemia vs orthostasis Troponin 0.03 x2 Echo with EF 55%, severely dilated LA, mild pulmonary hypertension, mild pulmonic regurg, mild mitral regurgitation, and mild tricuspid regurg. Qualifiers: Syncope type: unspecified Qualified Code(s): R55 - Syncope and collapse (4) Compression fracture Priority: Secondary Status: Acute Assessment and Plan: T12 vertebral compression fracture of indeterminate age Remote L2 and L4 compression fracture Bone scan as outpatient. (5) H/O: CVA (cerebrovascular accident) Priority: Secondary Status: Acute Assessment and Plan: Held ASA due to GI bleed (6) HTN (hypertension) Priority: Secondary Status: Acute Assessment and Plan: stable with home meds resumed all home meds Qualifiers: Hypertension type: essential hypertension Qualified Code(s): I10 - Essential (primary) hypertension Hospital course: Mr. Scott was admitted after sustaining a fall at home and was determined to have a Hb 5.7. Received 2 Units pRBC. Patient's mental status improved. CT Head was negative for acute findings. Upper endoscopy revealed hiatal hernia and nonbleeding erostive gastropathy. Echo revealed EF 55%, severely dilated LA , mild pulm htn, mild pulmonic regurg, mild mitral regurg, and mild tricuspid regurg. Hb has been stable at 8.1 and 8.2 after pRBC on admission. Patient was initially planned to complete a Colonoscopy, but didn't finish the bowel prep and requested to be discharged despite counseling of the importance of completing endoscopy. Patient will have close followup for colonoscopy with GI. Hold aspirin and plavix until gi bleed workup completed with colonoscopy. Patient has had increased agitation while hospitalized and did not complete half of the bowel prep needed to undergo colonoscopy. Patient's Hb has been stable at >8.0 for past 24 hours after completing 2 pRBC. Denies fevers, chills , sweats, headaches, lightheadedness, dizziness, nausea, vomiting, chest pain, shortness of breath, abdominal pain, changes in bowels or bladder, weakness, or loss of sensation. - Time Spent with Patient Total time spent providing and/or coordinating discharge services: - Discharge Medications Prescriptions: Pantoprazole Sodium 40 mg PO BID #60 tablet.dr Garcia Medications: Atorvastatin [Lipitor] 40 mg PO HS 08/10/17 [History] Multivit-Min/FA/Lycopen/Lutein [A Thru Z Select Men 50+ Tablet] 1 tab PO DAILY 08/10/17 [History] Pantoprazole Sodium 40 mg PO BID #60 tablet. 08/12/17 [Rx] Allergies/Adverse Reactions: 3 Allergy/AdvReac Type Severity Reaction Status Date / Time No Known Allergies Allergy Verified 08/10/17 13:16 Date of admission: 08/10/17 16:30 Primary care physician: Vic Kong, Consults: 08/10/17 17:46 Consult to Physical Therapy [CONS] Routine Comment: Evaluate, develop and implement POC Reason for Consult: Vertebral fx Does patient have active BEDREST order?: No Is patient medically & hemodynamically stable?: Yes Patient assessed for mobility or mobilized this visit?: Yes OT [Consult to Occupational Therapy] [CONS] Routine Comment: Evaluate, develop and implement POC Reason for Consult: Vertebral fx Does patient have active BEDREST order?: No Is patient medically & hemodynamically stable?: Yes Patient assessed for mobility or mobilized this visit?: Yes Discharging clinician: Kendall Dixon ([facility]) Anticipated date of discharge: 08/12/17 - Constitutional Vitals: Temp Pulse Resp BP Pulse Ox 97.8 F 94 15 155/83 97 08/12/17 07:51 08/12/17 07:51 08/12/17 07:51 08/12/17 07:51 08/12/17 07:51 General appearance: Present: A&O X 3, pleasant, no acute distress, answers questions appropriately - Head Head exam: Present: atraumatic, normal inspection, normocephalic - Eye Eye exam: Present: EOMI, normal appearance - ENT ENT exam: Present: mucous membranes moist, normal exam - Neck Neck exam general surgery: Present: full ROM, normal inspection, supple, trachea midline - Respiratory Respiratory exam: Present: CTAB. Absent: rales, respiratory distress, rhonchi, wheezes - Cardiovascular Cardiovascular exam: Present: RRR, +S1, +S2 - GI/Abdominal GI/Abdominal exam: Present: normal bowel sounds, soft. Absent: distended, tenderness - Extremities Exam Extremities exam: Present: full ROM, normal inspection, warm, radial pulses palpable and symmetrical. Absent: pedal edema - Skin Skin exam: Present: dry, intact, normal color, warm. Absent: rash - Patient Status Disposition: Home, Self-Care Condition: Fair Functional capacity at discharge: uses cane/walker Overall status at discharge: patient is progressing back to baseline - Discharge Instructions Instructions: Syncope (DC), Chronic Hypertension (DC), Anemia (GEN), Fall Prevention (DC) Follow Up With: Charlie Garcia MD [Partnered Physician] - (sent a web request and the office should call patient at home with appointment date and time) Vic Kong DO [Primary Care Provider] - 08/18/17 9:30 am - Diet and Activity Activity: ambulate only with your walker, increase activity as tolerated Diet: low fat, low cholesterol, low salt diet - VTE Documentation of Mechanical Device: Intermittent pneumatic compression device <Kendall Dixon - Last Filed: 08/12/17 19:01> Date of Encounter: 08/12/17 - Discharge Diagnosis (1) GI bleed Status: Acute Qualifiers: GI bleed type/associated pathology: melena Qualified Code(s): K92.1 - Melena (2) Syncope Priority: Secondary Status: Resolved Qualifiers: Syncope type: unspecified Qualified Code(s): R55 - Syncope and collapse (3) Compression fracture Status: Acute (4) Acute blood loss anemia Priority: Secondary Status: Acute (5) H/O: CVA (cerebrovascular accident) Status: Acute (6) HTN (hypertension) Status: Chronic Qualifiers: Hypertension type: essential hypertension Qualified Code(s): I10 - Essential (primary) hypertension Hospital course: Mr. Scott is a 81 year old male - Time Spent with Patient Total time spent providing and/or coordinating discharge services: 38min Date of admission: 08/10/17 16:30 Primary care physician: Vic Kong, Consults: 08/10/17 17:46 Consult to Physical Therapy [CONS] Routine Comment: Evaluate, develop and implement POC Reason for Consult: Vertebral fx Does patient have active BEDREST order?: No Is patient medically & hemodynamically stable?: Yes Patient assessed for mobility or mobilized this visit?: Yes OT [Consult to Occupational Therapy] [CONS] Routine Comment: Evaluate, develop and implement POC Reason for Consult: Vertebral fx Does patient have active BEDREST order?: No Is patient medically & hemodynamically stable?: Yes Patient assessed for mobility or mobilized this visit?: Yes - Constitutional Vitals: Temp Pulse Resp BP Pulse Ox 97.8 F 88 15 152/73 96 08/12/17 10:51 08/12/17 10:51 08/12/17 10:51 08/12/17 10:51 08/12/17 11:10 - Attending Attestation I examined this patient and my medical decision-making was reviewed with the Resident Physician on 08/12/17. I agree with the documented findings, disposition and treatment plan as described except to the extent set forth below. Mr Scott has been admitted for fall and anemia. His H/H is stable and EGD negative. He is to have colonoscopy as outpatient. He is currently afebrile and ready for discharge home. Exam alert Comfortable Mucus membranes dry Heart not tachy No wheeze Plan D/C home today
[2017-08-12 10:56] VITALS: BP 152/73
[2017-08-12 11:03] LABS: Hematocrit 29.4 % (37.5-50.1); Hemoglobin 9.1 g/dL (12.9-16.9)
--- NOTE | 2017-08-12 13:30 | Physician Discharge Referral ---
Home Health/Hosp Referral Info Transfer to: Home Health Attending Provider: zbigniew Dixon Provider in Charge Post Discharge: PCP - Diagnosis (1) GI bleed Priority: Primary Status: Acute (2) Acute blood loss anemia Priority: Primary Status: Acute (3) Syncope Priority: Primary Status: Acute (4) Compression fracture Priority: Secondary Status: Acute (5) H/O: CVA (cerebrovascular accident) Priority: Secondary Status: Acute (6) HTN (hypertension) Priority: Secondary Status: Acute - Respiratory Orders Smoking Cessation: Smoking cessation has been advised. For more information, call the [place] Tobacco Quit Line at 1-569-JRRA-NOW. - Diet/Nutrition Diet/Nutrition Orders: No Added Salt (ALISIA), Cardiac - Activity Activity Orders: Chair, Walker - Services Needed Following services are medically necessary services: Home Health Aide, Physical Therapy, Occupational Therapy - Transfer Medications Prescriptions: Pantoprazole Sodium 40 mg PO BID #60 tablet.dr Garcia Medications: Atorvastatin [Lipitor] 40 mg PO HS 08/10/17 [History] Multivit-Min/FA/Lycopen/Lutein [A Thru Z Select Men 50+ Tablet] 1 tab PO DAILY 08/10/17 [History] Pantoprazole Sodium 40 mg PO BID #60 tablet. 08/12/17 [Rx] Allergies/Adverse Reactions: 3 Allergy/AdvReac Type Severity Reaction Status Date / Time No Known Allergies Allergy Verified 08/10/17 13:16 Certification: Further, I certify that my clinical findings support that this patient is homebound (i.e. absences from home require considerable and taxing effort and are for medical reasons or sikhism services or infrequently or short duration when for other reasons) because: Homebound Reason: Patient requires assistance of a person or device to safely leave home, Leaving home requires considerable and taxing effort due to condition Attestation: My signature below is to certify that this patient is under my care and that I, or nurse practitioner, or a physician's botany laboratory assistant working with me, has a face-to -face encounter with this patient.
== END 2017-08-12 15:14 | disposition home or self-care (01) | DRG 378 ==
LOC: EMEROO 13:09 → SUATTDRO 16:30 → INTOOBSV 16:30 → 2NENU 16:30
PROVIDERS: ADMIT Family Medicine; ATTEND Internal Medicine

== ENCOUNTER 2017-08-21 10:12 | Inpatient (IN) ==
[2017-08-21] MEDS ORDERED: 0.9 % Sodium Chloride 500 ML IVC ONE (10:37)
--- NOTE | 2017-08-21 10:44 | Emergency Department Note ---
START Narrative - START START: 81 year old male presents with frequently fell. Pt stated he fell when he stood up from toilet this morning. He has stayed on the floor over 2 hours. pt denied hit his head and LOC. But pt's daughter stated he passed out prior fell. pt had similar situation two weeks ago. he was found hemoglobin 5.7 at that time. Pt denied headache or abdominal pain today. Labs, CT of head and neck started, report given to Dr. Lazcano
[2017-08-21 11:06] LABS: Basophils % 0.2 %; Eosinophils % 0.1 %; Hematocrit 30.8 % (37.5-50.1); Hemoglobin 9.3 g/dL (12.9-16.9); Immature Granulocytes % 0.4 % (0-4); Lymphocytes # 0.9 K/mcL (0.6-4.6); Lymphocytes % 7.5 %; Mean Corpuscular HGB Conc 30.2 g/dL (31.6-35.5); Mean Corpuscular Hemoglobin 22.7 pg (28.0-33.3); Mean Corpuscular Volume 75.3 fL (83.0-100.0); Mean Platelet Volume 9.3 fL (9.4-12.4); Monocytes # 0.7 K/mcL (0.0-1.3); Monocytes % 6.2 %; Platelet Count 345 K/mcL (140-400); Red Blood Count 4.09 M/mcL (4.19-5.50); Red Cell Distribution Width 20.8 % (11.5-14.5); Segmented Neutrophils % 85.6 %
[2017-08-21 11:23] LABS: BUN/Creatinine Ratio 22 (6-26); Blood Urea Nitrogen 20 mg/dL (8-23); Calcium 8.8 mg/dL (8.6-10.3); Carbon Dioxide 27 mEq/L (23-29); Chloride 104 mEq/L (98-107); Glucose 125 mg/dL (70-105); Osmolality,Calculated 288 (280-300); Potassium 3.4 mEq/L (3.5-5.1); Sodium 137 mEq/L (136-145); eGFR For African Americans > 60 (> 60); eGFR For Non-African Americans > 60 (> 60)
[2017-08-21 11:25] LABS: Troponin I < 0.03 ng/mL (< 0.04)
[2017-08-21 11:28] LABS: Creatine Kinase 91 Units/L (30-223)
[2017-08-21 11:34] LABS: Bilirubin,Urine Negative (Negative); Blood,Urine Negative (Negative); Clarity,Urine Clear (Clear); Color,Urine Yellow (Yellow); Glucose,Urine (UA) Normal (Normal); Ketones,Urine Trace mg/dL (Negative); Leukocyte Esterase,Urine Negative (Negative); Nitrite,Urine Negative (Negative); Protein,Urine 30 mg/dL (Neg-Trace); Urobilinogen,Urine Normal (Normal)
[2017-08-21 11:39] LABS: Bacteria,Urine Few per hpf (None-Few); RBC,Urine 0-3 per hpf (0-3); WBC,Urine 0-3 per hpf (0-3)
--- NOTE | 2017-08-21 11:42 | Emergency Department Note ---
Disposition Clinical Impression: Arm laceration Qualifiers: Encounter type: initial encounter Laterality: right Qualified Code(s): S41.111A - Laceration without foreign body of right upper arm, initial encounter Syncope Qualifiers: Syncope type: unspecified Qualified Code(s): R55 - Syncope and collapse Fall Qualifiers: Encounter type: initial encounter Qualified Code(s): W19.XXXA - Unspecified fall, initial encounter Disposition: Admitted As Inpatient Condition: Fair General Adult HPI - General Chief complaint: ED Fall Stated complaint: Fall Time Seen by Provider: 08/21/17 10:14 Source: patient Limitations: no limitations Nursing Notes Reviewed: Yes Vital Signs Reviewed: Yes - History of Present Illness HPI Narrative: 81-year-old male signed out to me by prior provider. Comes in secondary to syncope. Has a history of anemia. Patient states he is going to the bathroom got up fell down and was down for approximately 2 hours some he finally came and checked on him and then EMS was called he was brought to the emergency department. Patient sustained a laceration to his right elbow but otherwise he does not have any complaints. He denies hip pain and leg pain he denies trauma to the head Onset (ago): Just [employer] Radiation: non-radiation Pain Scale: 0 Consistency: constant Improves with: nothing Worsens with: nothing Associated symptoms: Reports: denies other symptoms - Related Data Home Medications Medication Instructions Recorded Confirmed Atorvastatin [Lipitor] 40 mg PO HS 08/10/17 08/21/17 Multivit-Min/FA/Lycopen/Lutein [A 1 tab PO DAILY 08/10/17 08/21/17 Thru Z Select Men 50+ Tablet] Clopidogrel [Plavix] 75 mg PO DAILY 08/21/17 08/21/17 Pantoprazole Sodium 40 mg PO BID 08/21/17 08/21/17 Previous Rx's Medication Instructions Recorded Docusate [Colace] 100 mg PO BID #20 capsule 08/13/17 Allergies Allergy/AdvReac Type Severity Reaction Status Date / Time No Known Allergies Allergy Verified 08/21/17 12:34 All systems ED: reviewed and negative except as stated. Constitutional: Reports: as per HPI Eyes: Reports: as per HPI ENT ED: Reports: as per HPI Cardiovascular: Reports: as per HPI Respiratory: Reports: as per HPI Gastrointestinal: Reports: as per HPI Genitourinary: Reports: as per HPI Musculoskeletal: Reports: as per HPI Neurological: Reports: other Psychiatric: Reports: as per HPI Endocrine: Reports: as per HPI Allergic/Immunologic: Reports: as per HPI Past Medical History - Past Medical History Attestation: Yes The following information was validated with the patient. Medical history: Reports: CVA, hypertension Psychiatric history: Reports: no psych history - Social History Smoking Status: Never smoker Smokeless Tobacco Status: No Alcohol use: Reports: none Drug use: Reports: none Physical Exam - General Limitations: no limitations General appearance: alert - Head Head exam: atraumatic - Eye Eye exam: Present: normal appearance - ENT ENT exam: normal exam - Neck Neck exam: Present: normal inspection - Chest Chest inspection: Present: normal inspection - Respiratory Respiratory exam: Present: normal lung sounds bilaterally - Cardiovascular Cardiovascular exam: Present: normal rhythm, tachycardia - Abdominal Exam Abdominal exam: Present: soft, Non-Tender - Extremities Exam Extremities exam: Present: normal inspection, other (Patient laceration proximally 7 cm long to his right elbow. On further inspection this is an old laceration there were very small sutures in place that had ruptured essentially. Through the traumatic injury from the fall. The sutures were removed and the new running suture was placed to replace them.) - Expanded Lower Extremity Exam Hip/Pelvis exam: Present: normal inspection Upper leg exam: Present: normal inspection Knee exam: Present: normal inspection Lower leg exam: Present: normal inspection Ankle exam: Present: normal inspection - Back Exam Back exam: Present: normal inspection. Absent: tenderness - Neurological Exam Neurological exam: Present: alert, oriented X3, CN II-XII intact - Psychiatric Psychiatric exam: Present: normal affect, normal mood - Skin Skin exam: Present: warm, dry, other (Patient has a 7 cm laceration over his right elbow it is not intra-articular.) Course Vital Signs Temperature 98.5 F 08/21/17 10:18 Pulse Rate 120 08/21/17 10:18 Respiratory Rate 15 08/21/17 10:18 Blood Pressure 134/84 08/21/17 10:18 O2 Sat by Pulse Oximetry 94 08/21/17 10:18 Temperature 98.5 F 08/21/17 10:31 Pulse Rate 109 08/21/17 13:14 Respiratory Rate 15 08/21/17 13:14 Blood Pressure 148/82 08/21/17 13:14 O2 Sat by Pulse Oximetry 92 08/21/17 13:14 Oxygen Delivery Oxygen Delivery Room Air Procedures - Laceration Laceration 1 Site: upper extremity Side (If applicable): right Description: linear Depth: simple, single layer Local Anesthetic: lidocaine 1% Pre-repair: wound explored, irrigated extensively Skin layer closed with: nylon Size: 3-0 Technique: running Medical Decision Making - MDM Narrative Medical decision making narrative: Patient was signed out to me by prior provider. At that time tests were pending. CBC did not show significant anemia at this time in fact it was the best values had since 2014. Head CT and neck CT were both negative for abnormalities. I ordered a chest and pelvis x-ray to ensure there is no issues there. Other labs are largely unremarkable. EKG did not show acute ischemic changes. Initial troponin was negative. Patient will be admitted to the inpatient service for further evaluation and treatment for his syncope. In reviewing his old medical records I was unable to determine the patient's had a carotid duplex. Considering the calcifications seen on CT scan I thought this is probably indicated at this point. Patient was seen hemodynamically stable throughout his stay while in the emergency department. No confusion or other symptoms at this point. I spoke with the hospitalist service at approximately 1:15 PM. They agreed to accept the patient for admission. - Medical Records Medical records reviewed: Yes I reviewed the patient's medical records. - Lab Data Lab results reviewed: Yes I reviewed the patient's lab results. Result diagrams: 08/21/17 10:41 08/21/17 10:41 Lab Results 08/21/17 08/21/17 08/21/17 Range/Units 10:41 10:41 10:41 WBC 11.7 H (4.3-11.1) K/mcL RBC 4.09 L (4.19-5.50) M/mcL Hgb 9.3 L (12.9-16.9) g/dL Hct 30.8 L (37.5-50.1) % MCV 75.3 L (83.0-100.0) fL MCH 22.7 L (28.0-33.3) pg MCHC 30.2 L (31.6-35.5) g/dL RDW 20.8 H (11.5-14.5) % Plt Count 345 (140-400) K/mcL MPV 9.3 L (9.4-12.4) fL Immature Gran % 0.4 (0-4) % Seg Neutrophils % 85.6 % Lymphocytes % 7.5 % Monocytes % 6.2 % Eosinophils % 0.1 % Basophils % 0.2 % Neutrophils # 10.0 H (1.6-8.9) K/mcL Lymphocytes # 0.9 (0.6-4.6) K/mcL Monocytes # 0.7 (0.0-1.3) K/mcL Eosinophils # 0.0 (0.0-0.6) K/mcL Basophils # 0.0 (0.0-0.2) K/mcL PT (9.4-12.1) Seconds INR Sodium 137 (136-145) mEq/L Potassium 3.4 L (3.5-5.1) mEq/L Chloride 104 (98-107) mEq/L Carbon Dioxide 27 (23-29) mEq/L BUN 20 (8-23) mg/dL Creatinine 0.92 (0.70-1.30) mg/dL Est GFR ( Amer) > 60 (> 60) Est GFR (Non-Af Amer) > 60 (> 60) BUN/Creatinine Ratio 22 (6-26) Glucose 125 H (70-105) mg/dL Calculated Osmolality 288 (280-300) Calcium 8.8 (8.6-10.3) mg/dL Creatine Kinase 91 (30-223) Units/L Troponin I < 0.03 (< 0.04) ng/mL Urine Color (Yellow) Urine Clarity (Clear) Urine pH (5.0-8.0) pH Units Ur Specific [place] (1.010-1.025) Urine Protein (Neg-Trace) mg/dL Urine Glucose (UA) (Normal) mg/dL Urine Ketones (Negative) mg/dL Urine Blood (Negative) Urine Nitrite (Negative) Urine Bilirubin (Negative) Urine Urobilinogen (Normal) mg/dL Ur Leukocyte Esterase (Negative) Urine Microscopic RBC (0-3) per hpf Urine Microscopic WBC (0-3) per hpf Urine Bacteria (None-Few) per hpf Ur Culture Indicated? (NO) 08/21/17 08/21/17 Range/Units 10:41 11:15 WBC (4.3-11.1) K/mcL RBC (4.19-5.50) M/mcL Hgb (12.9-16.9) g/dL Hct (37.5-50.1) % MCV (83.0-100.0) fL MCH (28.0-33.3) pg MCHC (31.6-35.5) g/dL RDW (11.5-14.5) % Plt Count (140-400) K/mcL MPV (9.4-12.4) fL Immature Gran % (0-4) % Seg Neutrophils % % Lymphocytes % % Monocytes % % Eosinophils % % Basophils % % Neutrophils # (1.6-8.9) K/mcL Lymphocytes # (0.6-4.6) K/mcL Monocytes # (0.0-1.3) K/mcL Eosinophils # (0.0-0.6) K/mcL Basophils # (0.0-0.2) K/mcL PT 11.7 (9.4-12.1) Seconds INR 1.1 Sodium (136-145) mEq/L Potassium (3.5-5.1) mEq/L Chloride (98-107) mEq/L Carbon Dioxide (23-29) mEq/L BUN (8-23) mg/dL Creatinine (0.70-1.30) mg/dL Est GFR ( Amer) (> 60) Est GFR (Non-Af Amer) (> 60) BUN/Creatinine Ratio (6-26) Glucose (70-105) mg/dL Calculated Osmolality (280-300) Calcium (8.6-10.3) mg/dL Creatine Kinase (30-223) Units/L Troponin I (< 0.04) ng/mL Urine Color Yellow (Yellow) Urine Clarity Clear (Clear) Urine pH 7.0 (5.0-8.0) pH Units Ur Specific [place] 1.020 (1.010-1.025) Urine Protein 30 H (Neg-Trace) mg/dL Urine Glucose (UA) Normal (Normal) mg/dL Urine Ketones Trace H (Negative) mg/dL Urine Blood Negative (Negative) Urine Nitrite Negative (Negative) Urine Bilirubin Negative (Negative) Urine Urobilinogen Normal (Normal) mg/dL Ur Leukocyte Esterase Negative (Negative) Urine Microscopic RBC 0-3 (0-3) per hpf Urine Microscopic WBC 0-3 (0-3) per hpf Urine Bacteria Few (None-Few) per hpf Ur Culture Indicated? NO (NO) - Radiology Data Radiology results reviewed: Yes I reviewed the patient's radiology results. CT of the head and neck did not show acute abnormalities or fractures. He did have some calcification in the carotid arteries. - EKG Data EKG #1 EKG results narrative: Should be noted that the EKG machine read this as atrial fibrillation but in looking closely he has got a sinus arrhythmia with P waves in front of every QRS complex morphology of which matches her prior EKG. EKG shows normal: sinus rhythm Rate: tachycardia Rhythm: NSR [place]/QRS: normal When compared to previous EKG there are: no significant changes Interpretation: no acute changes Critical Care Time Critical Care Time: Yes Total Critical Care Time: 35 Attestation: Medical care time 35 minutes managing patient's syncope.
[2017-08-21] MEDS ORDERED: Lidocaine 1% 20 ML MDV INFILT ONE (11:50)
[2017-08-21 12:04] LABS: INR 1.1; Prothrombin Time 11.7 Seconds (9.4-12.1)
[2017-08-21] MEDS ORDERED: Naloxone 0.4 MG/ML INJ IVP PRN (13:55)
[2017-08-21] MEDS ORDERED: Acetaminophen 325 MG TABLET PO PRN (13:55)
--- NOTE | 2017-08-21 14:27 | Internal Med History&Physical ---
<JesusEzekiel Winn - Last Filed: 08/21/17 15:48> Date of Encounter: 08/21/17 Time of Encounter: 13:30 Internal Medicine - H&P: HPI Chief complaint: Syncope w/Fall Admitted From: Emergency Dept Plans for Post Hospital Care: Home History of present illness: Mr. 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 Pt. and family report similar sx on 08/10 when pt. found to have Hgb of 5.7. Pt. states he's unsure if he blacked out but daughter states he was on the floor 2 hours. Reports laceration to right elbow. Also reports severe lower pelvic pain that has been present since last admission. Pt. reports residual weakness in RLE from previous CVA but denies recent illness, fever, chills, nausea, vomiting, changes in vision, headache, chest pain, shortness of breath, hip pain, leg pain , abdominal pain, diarrhea, constipation, dizziness, lightheadedness, numbness, tingling, pre-syncope, or syncope. Past Med Surg Social Fam HX - Past Medical History Source: patient, old records reviewed, obtained from family Medical history: CVA (5-6 years ago), hyperlipidemia, hypertension Additional medical history: Prostate CA Psychiatric history: no psych history - Social History Smoking Status: Former smoker Packs per day: Pipe - Reports quitting in 1984 Smokeless Tobacco Status: No Alcohol use: none Drug use: none Current living situation: Home - Independent Activity Level: Uses cane/walker Recent Out of Country Travel Within the Last 8 Weeks: No Exposure or Possible Exposure to Illness During Travel: No - Family History Father History Unknown: Yes Race: Family Member Ethnicity: Non- Living Status: Mother History Unknown: Yes Race: Family Member Ethnicity: Non- Living Status: Brother Race: Family Member Ethnicity: Non- Living Status: Still Living Hx Family Medical Disorders: No Sister History Unknown: Yes Race: Family Member Ethnicity: Non- Living Status: Internal Medicine - H&P: Meds Atorvastatin [Lipitor] 40 mg PO HS 08/10/17 [History] Multivit-Min/FA/Lycopen/Lutein [A Thru Z Select Men 50+ Tablet] 1 tab PO DAILY 08/10/17 [History] Docusate [Colace] 100 mg PO BID #20 capsule 08/13/17 [Rx] Clopidogrel [Plavix] 75 mg PO DAILY 08/21/17 [History] Pantoprazole Sodium 40 mg PO BID 08/21/17 [History] 3 Allergy/AdvReac Type Severity Reaction Status Date / Time No Known Allergies Allergy Verified 08/21/17 12:34 All Systems PM: A 10-system review of systems was performed and is negative for pertinent findings except as documented above in the HPI. - Constitutional Constitutional: as per HPI, falls, weakness (RLE), no chills, no fever(s), no night sweats - EENT Eyes: no change in vision, no discharge, no pain, no photophobia Ears: no ear discharge, no ear pain, no tinnitus Nose, mouth and throat: no dysphagia, no nasal discharge, no neck pain, no sore throat - Breasts Breasts: as per HPI - Cardiovascular Cardiovascular ROS IM: as per HPI, irregular heart rhythm, syncope, no chest pain, no diaphoresis, no dyspnea, no lightheadedness, no palpitations - Respiratory Respiratory: no cough, no dyspnea, no wheezing, no excessive phlegm production - Gastrointestinal Gastrointestinal: as per HPI, other (Lower pelvic pain w/positional changes. Pt. reports he was supposed to schedule OP colonoscopy following previous admission on 08/10.), no abdominal pain, no diarrhea, no hematemesis, no hematochezia, no melena, no nausea, no vomiting - Genitourinary Genitourinary ROS male: as per HPI - Musculoskeletal Musculoskeletal ROS IM: other (Pelvic pain), no numbness, no tingling - Integumentary Integumentary IM: no rash, no unusual bruising - Neurological Neurological ROS: no confusion, no convulsions, no focal weakness, no numbness, no tingling, no tremor(s) - Psychiatric Psychiatric: as per HPI - Endocrine Endocrine IM: as per HPI - Hematologic/Lymphatic Hematologic/Lymphatic: no easy bruising - Allergic/Immunologic Allergic/Immunologic: as per HPI - Constitutional Vitals: Temp Pulse Resp BP Pulse Ox 98.5 F 115 15 161/91 96 08/21/17 10:31 08/21/17 13:51 08/21/17 13:51 08/21/17 13:51 08/21/17 13:51 General appearance: Present: cooperative, mild distress (Pelvic pain w/ positional changes), A&O X 3, pleasant, underweight, answers questions appropriately - Head Head exam: Present: atraumatic, normocephalic - Eye Eye exam: Present: PERRL, conjuntiva pink, sclera anicteric Pupils: Present: PERRL - ENT ENT exam: Present: normal exam - Neck Neck exam general surgery: Present: normal inspection, supple, trachea midline. Absent: lymphadenopathy - Respiratory Respiratory exam: Present: CTAB. Absent: accessory muscle use, rales, rhonchi, wheezes - Cardiovascular Cardiovascular exam: Present: irregular rhythm - GI/Abdominal GI/Abdominal exam: Present: normal bowel sounds, soft, no peritoneal signs. Absent: distended, tenderness - Rectal Rectal exam: Present: deferred - Additional comments: exam deferred. - Extremities Exam Extremities exam: Present: warm, radial pulses palpable and symmetrical. Absent : calf tenderness, cyanotic, pedal edema - Expanded Upper Extremities Exam Elbow exam: Present: laceration (RUE), tenderness (RUE) - Back Exam Back exam: Present: normal inspection - Neurological Exam Neurological exam: Present: alert, CN II-XII intact, oriented X3, no focal deficits. Absent: pronater drift, facial droop, speech deficit - Psychiatric Psychiatric exam: Present: normal affect, normal mood - Skin Skin exam: Present: dry, intact Internal Med - H&P Results - Labs CBC & Chem 7: 08/21/17 10:41 08/21/17 10:41 - EKG Data Prior EKG available for review: yes EKG comments: 08/21/17 14:33 EKG dated 08/10/17 shows sinus rhythm. EKG dated 08/21/17 shows sinus tachycardia with frequent supraventricular premature complexes. - Diagnostic Studies Chest x-ray Additional comments: Impressions Chest X-Ray 08/21/17 11:46 IMPRESSION: No acute process. D/ / Jesse Tee MD / Jesse Tee MD Interpreting Provider: Jesse Tee MD CT scan - head Additional comments: Impressions Head CT 08/21/17 10:30 IMPRESSION: No acute intracranial hemorrhage or mass effect. D/ / Kalpesh Marshall MD / Kalpesh Marshall MD Interpreting Provider: Kalpesh Marshall MD Other Images Additional comments: Impressions Cervical Spine CT 08/21/17 10:39 IMPRESSION: No acute abnormality of the cervical spine. Degenerative change as above. Carotid calcified atheromatous plaque. D/ / Adi Leos / Adi Leos Interpreting Provider: Adi Leos INATION: SINGLE VIEW OF THE PELVIS 08/21/2017 12:21 pm COMPARISON: None. HISTORY: ORDERING SYSTEM PROVIDED HISTORY: fall Pelvic pain. FINDINGS: There is no fracture, dislocation or diastases. Hip and SI joint spaces are symmetric. The soft tissues are unremarkable. D/ / Jesse Tee MD / Jesse Tee MD Interpreting Provider: Jesse Tee MD - Assessment and plan (1) Syncope Current Visit: Yes Status: Acute Assessment and plan: Acute syncope w/similar sx as 08/10. Cannot recall incident. Pt. has irregular HR w/o anticoagulation. Cannot recall palpitations or LIZARRAGA. Echo from 08/11 shows LVEF of 55%, mild left ventricular diastolic dysfunction, normal right ventricular structure and function, severely dilated left atrium, mild mitral regurgitation, mild to moderate tricuspid regurgitation, mild pulmonic regurgitation, and mild pulmonary hypertension. CT of the head shows no intracranial abnormality. Cervical spine CT shows no acute abnormality of the cervical spine. Degenerative changes. Carotid calcified atheromatous plaque. Pelvis x-ray shows no fracture, dislocation, or diastasis. Hip and SI joint spaces are symmetric. Soft tissues are unremarkable. Orthostatic BPs and VS ordered. Bilateral carotid Dopplers ordered. Pt. discussed w/Dr. Sandoval who agrees w/plan of care. Pt. is moderate risk for further morbidity d/t syncope/fall today, recurrence of sx from 08/10, hx of previous CVA w/residual weakness, and risk factors. Observation. Qualifiers: Syncope type: unspecified Qualified Code(s): R55 - Syncope and collapse (2) Fall Current Visit: Yes Status: Acute Assessment and plan: Acute on chronic fall. Hx of fall on 08/10 when pt. found to have Hgb of 5.7. Pt. reports falling after using restroom this morning. Unsure of what happened and cannot deny syncope. Family reports down for approx. 2 hours d/t being unable to get up. Falls/safety precautions, up with assist, bed rest w/bedside commode w/assist only. Qualifiers: Encounter type: initial encounter Qualified Code(s): W19.XXXA - Unspecified fall, initial encounter (3) Pelvic pain Current Visit: Yes Status: Acute Assessment and plan: Acute pelvic pain made worse w/positional changes. Pt. reports sx since previous admission. Discussion w/GI for colonoscopy d/t GI bleeding and low Hgb during last admission. F/u w/GI as OP for colonoscopy. Monitor pt. for signs of bleeding. (4) Leukocytosis Current Visit: Yes Status: Acute Assessment and plan: Mild leukocytosis w/WBC of 11.7 on admission. Reactive versus infective. Pt. is afebrile and asymptomatic and denies recent illness. Will monitor f/u labs. Qualifiers: Leukocytosis type: unspecified Qualified Code(s): D72.829 - Elevated white blood cell count, unspecified (5) Anemia Current Visit: Yes Status: Acute Assessment and plan: Hx of anemia since last admission on 08/10 when Hgb was 5.7. 9.3 today which is higher than pts. previous readings. Pt. reports occasional dark stools. Fecal hemoccult. Monitor H/H in f/u labs. Iron profile ordered. Qualifiers: Anemia type: unspecified type Qualified Code(s): D64.9 - Anemia, unspecified (6) Hypokalemia Current Visit: Yes Status: Acute Assessment and plan: Mild hypokalemia w/potassium of 3.4 on admission. 40 mEq PO potassium ordered. Will re-check potassium at 00:00. (7) Arm laceration Current Visit: Yes Status: Acute Assessment and plan: Acute arm laceration d/t fall. Wound care consult and daily wound care ordered. Qualifiers: Encounter type: initial encounter Laterality: right Qualified Code(s): S41.111A - Laceration without foreign body of right upper arm, initial encounter (8) HTN (hypertension) Current Visit: Yes Status: Chronic Assessment and plan: Hx of chronic HTN. Pt. and family report pt. takes Lisinopril daily but not on pts. home medication list. Hydralazine 10 mg Q6HR PRN w/parameters ordered. Qualifiers: Hypertension type: essential hypertension Qualified Code(s): I10 - Essential (primary) hypertension (9) HLD (hyperlipidemia) Current Visit: Yes Status: Chronic Assessment and plan: Hx of chronic HLD. Lipid panel in a.m. labs. Continue pts. Lipitor. Qualifiers: Hyperlipidemia type: pure hypercholesterolemia Qualified Code(s): E78.00 - Pure hypercholesterolemia, unspecified; E78.0 - Pure hypercholesterolemia (10) GERD (gastroesophageal reflux disease) Current Visit: Yes Status: Chronic Assessment and plan: Hx of chronic GERD. IVP Protonix 40 mg BID. IVP Zofran 4 mg Q6HR PRN. Qualifiers: Esophagitis presence: esophagitis presence not specified Qualified Code(s) : K21.9 - Gastro-esophageal reflux disease without esophagitis (11) H/O: CVA (cerebrovascular accident) Current Visit: Yes Status: Chronic Assessment and plan: Hx of CVA 5-6 years ago w/residual weakness in RLE. Falls/safety precautions, up with assist, bed rest w/bedside commode w/assist only. PT/OT consults. (12) DVT prophylaxis Current Visit: Yes Status: Acute Assessment and plan: Bilateral SCDs on LEs for DVT prophylaxis d/t pts. recent GI bleeding and drop in Hgb on 08/10. Pt. reports occasional dark stools. Monitor pt. for signs of bleeding. (13) Irregular heart rhythm Current Visit: Yes Status: Acute Assessment and plan: Irregular HR on exam. Pt. denies previous hx. Pt. on Plavix for previous CVA. Repeat EKG. Continuous cardiac telemetry. Continue pts. Plavix. Will avoid aspirin d/t hx of GI bleed. Monitor. - Time Spent With Patient Total time spent is greater than 50% in coordination of care (as documented) at patient's floor/unit and/or counseling patient: Greater than 35 minutes <Nya Sandoval - Last Filed: 08/21/17 17:29> Date of Encounter: 08/21/17 Internal Medicine - H&P: HPI History of present illness: Mr. Scott is a 81 year old male All Systems PM: A 10-system review of systems was performed and is negative for pertinent findings except as documented above in the HPI. - Constitutional Vitals: Temp Pulse Resp BP Pulse Ox 98.7 F 108 18 148/73 96 08/21/17 14:57 08/21/17 14:57 08/21/17 14:57 08/21/17 14:57 08/21/17 14:57 Internal Med - H&P Results - Labs CBC & Chem 7: 08/21/17 10:41 08/21/17 10:41 Labs: Cardiac Enzymes 08/21/17 Range/Units 16:43 Troponin I < 0.03 (< 0.04) ng/mL - Attending Attestation I have personally performed a face to face evaluation on this patient. I have reviewed and agree with the care plan [employer] Ezekiel Lee. History and Exam by me shows: Mr. 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 pt had a syncopal episode and fell on the floor. He was down on the floor for almost for 2 hrs. Pt was not able to provide me exact history and what happened before fall and how long he lost his consciousness. Gen: A, A, O x 3 Chest: Diminished BS b/l Heart: S1S2 + RRR a/p 1. Syncope Need to r/o ACS, Arrhythmias and seizure on tele check serial trop carotid doppler EEG in AM had 2 D Echo recently - no need to repeat reviewed EKG showed sinus tachycardia with heart rate 102, no acute ST, T changes - Assessment and plan (1) Anemia Current Visit: Yes Status: Acute Qualifiers: Anemia type: unspecified type Qualified Code(s): D64.9 - Anemia, unspecified (2) Fall Current Visit: Yes Status: Acute Qualifiers: Encounter type: initial encounter Qualified Code(s): W19.XXXA - Unspecified fall, initial encounter (3) H/O: CVA (cerebrovascular accident) Current Visit: Yes Status: Chronic (4) Arm laceration Current Visit: Yes Status: Acute Qualifiers: Encounter type: initial encounter Laterality: right Qualified Code(s): S41.111A - Laceration without foreign body of right upper arm, initial encounter (5) Syncope Current Visit: Yes Status: Acute Qualifiers: Syncope type: unspecified Qualified Code(s): R55 - Syncope and collapse (6) HTN (hypertension) Current Visit: Yes Status: Chronic Qualifiers: Hypertension type: essential hypertension Qualified Code(s): I10 - Essential (primary) hypertension (7) HLD (hyperlipidemia) Current Visit: Yes Status: Chronic Qualifiers: Hyperlipidemia type: pure hypercholesterolemia Qualified Code(s): E78.00 - Pure hypercholesterolemia, unspecified; E78.0 - Pure hypercholesterolemia (8) GERD (gastroesophageal reflux disease) Current Visit: Yes Status: Chronic Qualifiers: Esophagitis presence: esophagitis presence not specified Qualified Code(s) : K21.9 - Gastro-esophageal reflux disease without esophagitis (9) DVT prophylaxis Current Visit: Yes Status: Acute (10) Hypokalemia Current Visit: Yes Status: Acute (11) Leukocytosis Current Visit: Yes Status: Acute Qualifiers: Leukocytosis type: unspecified Qualified Code(s): D72.829 - Elevated white blood cell count, unspecified (12) Pelvic pain Current Visit: Yes Status: Acute (13) Irregular heart rhythm Current Visit: Yes Status: Acute - Time Spent With Patient Total time spent is greater than 50% in coordination of care (as documented) at patient's floor/unit and/or counseling patient:
[2017-08-21] MEDS ORDERED: Aspirin Enteric Coated 81 MG Tablet PO SCH (14:45)
[2017-08-21] MEDS ORDERED: Ondansetron 4 MG/2 ML VIAL IVP PRN (14:45)
[2017-08-21 17:14] LABS: Iron < 10 mcg/dL (65-175); Transferrin 267 mg/dL (203-362)
[2017-08-21] MEDS: Pantoprazole 40 MG VIAL IVP SCH (17:48)
[2017-08-22 00:55] LABS: Basophils % 0.4 %; Eosinophils # 0.1 K/mcL (0.0-0.6); Eosinophils % 1.5 %; Hematocrit 27.3 % (37.5-50.1); Hemoglobin 8.2 g/dL (12.9-16.9); Immature Granulocytes % 0.3 % (0-4); Lymphocytes # 1.7 K/mcL (0.6-4.6); Lymphocytes % 25.6 %; Mean Corpuscular Hemoglobin 22.3 pg (28.0-33.3); Mean Corpuscular Volume 74.2 fL (83.0-100.0); Mean Platelet Volume 9.1 fL (9.4-12.4); Monocytes # 0.7 K/mcL (0.0-1.3); Neutrophils # 4.1 K/mcL (1.6-8.9); Platelet Count 298 K/mcL (140-400); Red Blood Count 3.68 M/mcL (4.19-5.50); Red Cell Distribution Width 20.8 % (11.5-14.5); Segmented Neutrophils % 61.2 %
[2017-08-22 01:10] LABS: Alanine Aminotransferase 20 Units/L (7-52); Albumin 2.6 g/dL (3.5-5.7); Alkaline Phosphatase 75 Units/L (34-104); Aspartate Amino Transferase 23 Units/L (13-39); BUN/Creatinine Ratio 23 (6-26); Bilirubin,Total 0.5 mg/dL (0.3-1.0); Blood Urea Nitrogen 19 mg/dL (8-23); Calcium 8.3 mg/dL (8.6-10.3); Carbon Dioxide 23 mEq/L (23-29); Chloride 109 mEq/L (98-107); Chol/HDL Ratio 1.8 (0-4.9); Cholesterol 73 mg/dL (< 200); Globulin 2.7 g/dL (2.4-3.5); Glucose 78 mg/dL (70-105); HDL Cholesterol 41 mg/dL (40-59); LDL Cholesterol,Calculated 20 mg/dL (0-99); Osmolality,Calculated 287 (280-300); Potassium 3.7 mEq/L (3.5-5.1); Sodium 138 mEq/L (136-145); Total Protein 5.3 g/dL (6.4-8.9); Triglycerides 60 mg/dL (< 150); eGFR For African Americans > 60 (> 60); eGFR For Non-African Americans > 60 (> 60)
[2017-08-22] MEDS: Pantoprazole 40 MG VIAL IVP SCH ×2 (05:44→18:24)
[2017-08-22 07:19] LABS: Estimated Average Glucose 128 mg/dl; Hemoglobin A1C 6.1 %
--- NOTE | 2017-08-22 08:57 | Internal Med Progress Note ---
<Abdelrahman Bey - Last Filed: 08/22/17 13:44> Date of Encounter: 08/22/17 Time of Encounter: 08:57 - Assessment and plan (1) Fall Current Visit: Yes Status: Acute Assessment and plan: Acute fall after using restroom with Hx of fall on 08/10 when pt. found to have Hgb of 5.7. Family reports down for approx. 2 hours d/t being unable to get up. Falls/safety precautions, up with assist, bed rest w/bedside commode w/assist only. CT of the head shows no intracranial abnormality. Cervical spine CT shows no acute abnormality of the cervical spine. Degenerative changes. Carotid calcified atheromatous plaque. Pelvis x-ray shows no fracture, dislocation, or diastasis. Hip and SI joint spaces are symmetric. Soft tissues are unremarkable. L-spine x-ray reveals moderate T12 compression fracture, which is more compressed from previous examinations, and is therefore at least in part acute. Mild T11 inferior endplate fracture, which may also be acute. Stable appearance of chronic L2 and L4 compression fractures. Patient refuses lower thoracic vertebroplasties with interventional radiology at this time. PT/OT and social work consulted Qualifiers: Encounter type: initial encounter Qualified Code(s): W19.XXXA - Unspecified fall, initial encounter (2) Pelvic pain Current Visit: Yes Status: Acute Assessment and plan: Acute pelvic pain made worse w/positional changes. Pt. reports sx since previous admission. Discussion w/GI for colonoscopy d/t GI bleeding and low Hgb during last admission. F/u w/GI as OP for colonoscopy. Monitor pt. for signs of bleeding. (3) Syncope Current Visit: Yes Status: Acute Assessment and plan: Echo from 08/11 shows LVEF of 55%, mild left ventricular diastolic dysfunction, normal right ventricular structure and function, severely dilated left atrium, mild mitral regurgitation, mild to moderate tricuspid regurgitation, mild pulmonic regurgitation, and mild pulmonary hypertension. Orthostatic BPs and VS ordered. Bilateral carotid Dopplers ordered. Pt. discussed w/Dr. Sandoval who agrees w/plan of care. Pt. is moderate risk for further morbidity d/t syncope/fall today, recurrence of sx from 08/10, hx of previous CVA w/residual weakness, and risk factors. Observation. Qualifiers: Syncope type: unspecified Qualified Code(s): R55 - Syncope and collapse (4) Anemia Current Visit: Yes Status: Acute Assessment and plan: Hx of anemia since last admission on 08/10 when Hgb was 5.7. Stable HGB today. Pt. reports occasional dark stools. Fecal hemoccult pending. EGD was normal 08/11/17 Iron < 10, start Ferrous sulfate Recommend colonoscopy to r/o source of iron deficiency anemia Monitor H/H in f/u labs. 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 Falls/safety precautions, up with assist, bed rest w/bedside commode w/assist only. PT/OT consults. (6) Arm laceration Current Visit: Yes Status: Acute Assessment and plan: Acute arm laceration d/t fall. Wound care consult and daily wound care ordered. Qualifiers: Encounter type: initial encounter Laterality: right Qualified Code(s): S41.111A - Laceration without foreign body of right upper arm, initial encounter (7) HTN (hypertension) Current Visit: Yes Status: Chronic Assessment and plan: Hx of chronic HTN. Pt. and family report pt. takes Lisinopril daily but not on pts. home medication list. Hydralazine 10 mg Q6HR PRN w/parameters ordered. Qualifiers: Hypertension type: essential hypertension Qualified Code(s): I10 - Essential (primary) hypertension (8) HLD (hyperlipidemia) Current Visit: Yes Status: Chronic Assessment and plan: Hx of chronic HLD. Lipid panel complete. Continue pts. Lipitor. Qualifiers: Hyperlipidemia type: pure hypercholesterolemia Qualified Code(s): E78.00 - Pure hypercholesterolemia, unspecified; E78.0 - Pure hypercholesterolemia (9) GERD (gastroesophageal reflux disease) Current Visit: Yes Status: Chronic Assessment and plan: Hx of chronic GERD. IVP Protonix 40 mg BID. IVP Zofran 4 mg Q6HR PRN. Qualifiers: Esophagitis presence: esophagitis presence not specified Qualified Code(s) : K21.9 - Gastro-esophageal reflux disease without esophagitis (10) Hypokalemia Current Visit: Yes Status: Acute Assessment and plan: Mild hypokalemia w/potassium of 3.4 on admission. 40 mEq PO potassium ordered. Monitor potassium levels (11) DVT prophylaxis Current Visit: Yes Status: Acute Assessment and plan: Bilateral SCDs on LEs for DVT prophylaxis d/t pts. recent GI bleeding and drop in Hgb on 08/10. Pt. reports occasional dark stools. Monitor pt. for signs of bleeding. (12) Irregular heart rhythm Current Visit: Yes Status: Acute Assessment and plan: Irregular HR on exam. Pt. denies previous hx. Pt. on Plavix for previous CVA. Continuous cardiac telemetry. Continue pts. Plavix. Will avoid aspirin d/t hx of GI bleed. Monitor. - Time Spent With Patient Total time spent is greater than 50% in coordination of care (as documented) at patient's floor/unit and/or counseling patient: - Subjective Interval history: Patient seen and examined resting in bed with RN at bedside. Patient reports moderate right flank pain radiating to his abdomen today. L-spine x-ray is pending to r/o fracture s/p fall. - Constitutional Vitals: Temp Pulse Resp BP Pulse Ox 98.3 F 108 16 115/64 94 08/22/17 07:11 08/22/17 07:11 08/22/17 07:11 08/22/17 07:11 08/22/17 07:11 General appearance: Present: cooperative, mild distress (L-spine pain w/ positional changes), A&O X 3, pleasant, underweight, answers questions appropriately - Head Head exam: Present: atraumatic, normocephalic - Eye Eye exam: Present: PERRL, conjuntiva pink, sclera anicteric Pupils: Present: PERRL - ENT ENT exam: Present: mucous membranes dry, normal oropharynx - Neck Neck exam general surgery: Present: supple, trachea midline. Absent: lymphadenopathy - Respiratory Respiratory exam: Present: CTAB. Absent: accessory muscle use, rales, rhonchi, wheezes - Cardiovascular Cardiovascular exam: Present: RRR, +S1, +S2. Absent: diastolic murmur, gallop, rubs, systolic murmur - GI/Abdominal GI/Abdominal exam: Present: normal bowel sounds, soft, tenderness (mild diffuse TTP), no peritoneal signs. Absent: distended - Extremities Exam Extremities exam: Present: warm, radial pulses palpable and symmetrical. Absent : calf tenderness, cyanotic, pedal edema - Back Exam Back exam: Present: CVA tenderness (R), normal inspection, tenderness - Neurological Exam Neurological exam: Present: CN II-XII intact, oriented X3, no focal deficits. Absent: pronater drift, facial droop, speech deficit - Psychiatric Psychiatric exam: Present: normal affect, normal mood - Skin Skin exam: Present: dry, intact, normal color, warm Internal Medicine: Result - Labs CBC & Chem 7: 08/22/17 00:35 08/22/17 00:35 Labs: Short CBC 08/22/17 Range/Units 00:35 WBC 6.7 (4.3-11.1) K/mcL Hgb 8.2 L (12.9-16.9) g/dL Hct 27.3 L (37.5-50.1) % Plt Count 298 (140-400) K/mcL Neutrophils # 4.1 (1.6-8.9) K/mcL BMP 08/22/17 08/22/17 00:35 00:35 Sodium 138 Potassium 3.7 3.7 Chloride 109 H Carbon Dioxide 23 BUN 19 Creatinine 0.83 Glucose 78 Calcium 8.3 L Cardiac Enzymes 08/21/17 08/21/17 Range/Units 16:43 22:32 Troponin I < 0.03 < 0.03 (< 0.04) ng/mL Liver Function 08/22/17 Range/Units 00:35 Total Bilirubin 0.5 (0.3-1.0) mg/dL AST 23 (13-39) Units/L ALT 20 (7-52) Units/L Alkaline Phosphatase 75 (34-104) Units/L Albumin 2.6 L (3.5-5.7) g/dL - ABG Interpretation ABG results: PT/INR, D-dimer PT 11.7 Seconds (9.4-12.1) 08/21/17 10:41 - Pulse Oximetry Interpretation Digit-Finger Pulse Oximetry Readin (On RA) Consult Discharge Plan - Plan Referrals: Vic Kong DO [Primary Care Provider] - 08/24/17 9:30 am <Nya Sandoval - Last Filed: 08/22/17 17:12> Date of Encounter: 08/22/17 - Assessment and plan (1) Anemia Current Visit: Yes Status: Acute Qualifiers: Anemia type: iron deficiency Iron deficiency anemia type: unspecified iron deficiency Qualified Code(s): D50.9 - Iron deficiency anemia, unspecified (2) Fall Current Visit: Yes Status: Acute Qualifiers: Encounter type: initial encounter Qualified Code(s): W19.XXXA - Unspecified fall, initial encounter (3) H/O: CVA (cerebrovascular accident) Current Visit: Yes Status: Chronic (4) Arm laceration Current Visit: Yes Status: Acute Qualifiers: Encounter type: initial encounter Laterality: right Qualified Code(s): S41.111A - Laceration without foreign body of right upper arm, initial encounter (5) Syncope Current Visit: Yes Status: Acute Qualifiers: Syncope type: unspecified Qualified Code(s): R55 - Syncope and collapse (6) HTN (hypertension) Current Visit: Yes Status: Chronic Qualifiers: Hypertension type: essential hypertension Qualified Code(s): I10 - Essential (primary) hypertension (7) HLD (hyperlipidemia) Current Visit: Yes Status: Chronic Qualifiers: Hyperlipidemia type: pure hypercholesterolemia Qualified Code(s): E78.00 - Pure hypercholesterolemia, unspecified; E78.0 - Pure hypercholesterolemia (8) GERD (gastroesophageal reflux disease) Current Visit: Yes Status: Chronic Qualifiers: Esophagitis presence: esophagitis presence not specified Qualified Code(s) : K21.9 - Gastro-esophageal reflux disease without esophagitis (9) DVT prophylaxis Current Visit: Yes Status: Acute (10) Hypokalemia Current Visit: Yes Status: Acute (11) Pelvic pain Current Visit: Yes Status: Acute (12) Irregular heart rhythm Current Visit: Yes Status: Acute - Time Spent With Patient Total time spent is greater than 50% in coordination of care (as documented) at patient's floor/unit and/or counseling patient: - Constitutional Vitals: Temp Pulse Resp BP Pulse Ox 98.5 F 94 16 136/63 95 08/22/17 15:16 08/22/17 15:16 08/22/17 15:16 08/22/17 15:16 08/22/17 15:16 Internal Medicine: Result - Labs CBC & Chem 7: 08/22/17 00:35 08/22/17 00:35 Labs: Short CBC 08/22/17 Range/Units 00:35 WBC 6.7 (4.3-11.1) K/mcL Hgb 8.2 L (12.9-16.9) g/dL Hct 27.3 L (37.5-50.1) % Plt Count 298 (140-400) K/mcL Neutrophils # 4.1 (1.6-8.9) K/mcL BMP 08/22/17 08/22/17 00:35 00:35 Sodium 138 Potassium 3.7 3.7 Chloride 109 H Carbon Dioxide 23 BUN 19 Creatinine 0.83 Glucose 78 Calcium 8.3 L Cardiac Enzymes 08/21/17 08/21/17 Range/Units 16:43 22:32 Troponin I < 0.03 < 0.03 (< 0.04) ng/mL Liver Function 08/22/17 Range/Units 00:35 Total Bilirubin 0.5 (0.3-1.0) mg/dL AST 23 (13-39) Units/L ALT 20 (7-52) Units/L Alkaline Phosphatase 75 (34-104) Units/L Albumin 2.6 L (3.5-5.7) g/dL - ABG Interpretation ABG results: PT/INR, D-dimer PT 11.7 Seconds (9.4-12.1) 08/21/17 10:41 - Impressions Impressions Lumbar Spine X-Ray 08/22/17 10:16 IMPRESSION: 1. Moderate T12 compression fracture, which is more compressed from previous examinations, and is therefore at least in part acute. 2. Mild T11 inferior endplate fracture, which may also be acute. 3. Stable appearance of chronic L2 and L4 compression fractures. RECOMMENDATION: Consider further evaluation with MRI, as the patient may be a candidate for lower thoracic vertebroplasties with interventional radiology. D/ / Andrea Maloney MD / Andrea Maloney MD Interpreting Provider: Andrea Maloney MD - Attending Attestation I examined this patient and my medical decision-making was reviewed with the Resident Physician Dr. Bey. I agree with the documented findings, disposition and treatment plan as described except to the extent set forth below. Mr. 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 pt had a syncopal episode and fell on the floor. He was down on the floor for almost for 2 hrs. Pt was not able to provide me exact history and what happened before fall and how long he lost his consciousness. He denied any CP. He does c/o lower abdomen and low back pain. Constipation x 5 days Gen: A, A, O x 3 Chest: Diminished BS b/l Heart: S1S2 + RRR a/p 1. Syncope so far negative trop carotid doppler - P EEG - P had 2 D Echo recently - no need to repeat 2. Acute GI bleed / BRBPR NPO GI consult H/H Q6hr Transfuse PRBC PRN Will switch him to full admission. Since he does need to stay in the hospital more than 2 MN. He does need higher level of care too. Coninue him on tele for now. Reviewed [employer] P, including HPI,PMH,PSH,SH, FH and ROS, no changed noticed
[2017-08-22] MEDS: Multivit/Ca/Min/Fe/FA 1 TAB TABLET PO SCH (09:30)
--- NOTE | 2017-08-22 09:56 | Electrocardiograph Report ---
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
[2017-08-22] MEDS ORDERED: Lactulose Oral Soln 20 GM/30 ML UDC PO ONE (09:58)
--- NOTE | 2017-08-22 10:00 | Electrocardiograph Report ---
[place] [id number] Test Date: 2017-08-21 Pat Name: Abdelrahman Scott Department: 113 Room: 3B Gender: Rn Renal: : 1935 Requested By: Alfredito Juaerz Order Number: [id number] Reading MD: Yung Basurto Measurements Intervals [place] Rate: 102 P: 67 MO: 134 QRS: 23 QRSD: 73 T: 53 QT: 315 QTc: 374 Interpretive Statements SINUS TACHYCARDIA WITH FREQUENT SUPRAVENTRICULAR PREMATURE COMPLEXES Electronically Signed On 08-22-2017 9:58:37 EDT by Yung Basruto
--- NOTE | 2017-08-22 12:09 | EEG/EMG/Oth Biometrics Report ---
EEG Procedure Report Date of procedure: 08/22/17 EEG Procedure: Routine EEG Procedure Note: This EEG was acquired with standard international 10-20 system with EKG recording. The background EEG activity was characterized by the presence of posterior dominant alpha rhythm with the best frequency up to 10 Hz. The background activity was reactive to eye openings. Sleep stages were characterized by the presence of background fragmentation, vertex waves, K complexes, and sleep spindles. There are no electrographic seizures identified during this tracing. There are no epileptiform discharges and focal slowing noted during this recording. Photic stimulation produced no abnormalities. Hyperventilation procedure was not performed EKG tracing showed frequent PACs vs irregular sinus rhythm Impression: This is essentially a normal awake and asleep EEG. Clinical Correlation: Normal EEGs, however, do not exclude epilepsy. Clinical correlation advised.
[2017-08-22] MEDS: 0.9 % Sodium Chloride 1,000 ML IVC SCH (16:17)
[2017-08-22] MEDS ORDERED: Polyethylene Glycol 3350 255 GM POWDER PO ONE (17:00)
[2017-08-22 17:44] LABS: Hematocrit 27.4 % (37.5-50.1); Hemoglobin 8.3 g/dL (12.9-16.9)
[2017-08-22 23:14] LABS: Hematocrit 26.2 % (37.5-50.1)
[2017-08-23] MEDS: 0.9 % Sodium Chloride 1,000 ML IVC SCH (03:01)
[2017-08-23] MEDS: Pantoprazole 40 MG VIAL IVP SCH ×2 (05:34→18:11)
[2017-08-23 05:42] LABS: Basophils % 0.2 %; Eosinophils # 0.1 K/mcL (0.0-0.6); Eosinophils % 0.6 %; Hematocrit 26.4 % (37.5-50.1); Hemoglobin 8.1 g/dL (12.9-16.9); Immature Granulocytes % 0.3 % (0-4); Lymphocytes # 1.5 K/mcL (0.6-4.6); Lymphocytes % 12.5 %; Mean Corpuscular HGB Conc 30.7 g/dL (31.6-35.5); Mean Corpuscular Hemoglobin 22.5 pg (28.0-33.3); Mean Corpuscular Volume 73.3 fL (83.0-100.0); Mean Platelet Volume 9.6 fL (9.4-12.4); Monocytes # 0.6 K/mcL (0.0-1.3); Monocytes % 5.4 %; Neutrophils # 9.5 K/mcL (1.6-8.9); Platelet Count 309 K/mcL (140-400); Red Cell Distribution Width 20.6 % (11.5-14.5)
[2017-08-23 05:57] LABS: Alanine Aminotransferase 19 Units/L (7-52); Albumin 2.6 g/dL (3.5-5.7); Alkaline Phosphatase 76 Units/L (34-104); Aspartate Amino Transferase 23 Units/L (13-39); BUN/Creatinine Ratio 20 (6-26); Bilirubin,Total 0.6 mg/dL (0.3-1.0); Blood Urea Nitrogen 14 mg/dL (8-23); Carbon Dioxide 22 mEq/L (23-29); Chloride 106 mEq/L (98-107); Globulin 2.6 g/dL (2.4-3.5); Glucose 100 mg/dL (70-105); Osmolality,Calculated 279 (280-300); Potassium 3.6 mEq/L (3.5-5.1); Sodium 134 mEq/L (136-145); Total Protein 5.2 g/dL (6.4-8.9); eGFR For African Americans > 60 (> 60); eGFR For Non-African Americans > 60 (> 60)
[2017-08-23] MEDS: OXYCODONE Oral CONC 10 MG/0.5 ML ORAL.SYG SL PRN ×2 (06:24→11:41)
--- NOTE | 2017-08-23 08:04 | Internal Med Progress Note ---
<Abdelrahman Bey - Last Filed: 08/23/17 13:20> Date of Encounter: 08/23/17 Time of Encounter: 08:02 - Assessment and plan (1) GI bleed Current Visit: No Status: Acute Assessment and plan: EGD was normal 08/11/17 GI was consulted to perform an EGD/ colonoscopy due to blood in stool. Patient was not able to drink bowel prep regimen 08/22/17. CT abd/plv revealed no acute intra-abdominal abnormality Patient is NPO awaiting EGD. Anticipate colonoscopy once patient is able to tolerate bowel prep. Qualifiers: GI bleed type/associated pathology: melena Qualified Code(s): K92.1 - Melena (2) Compression fracture Current Visit: No Status: Acute Assessment and plan: L-spine x-ray reveals moderate T12 compression fracture, which is more compressed from previous examinations, and is therefore at least in part acute. Mild T11 inferior endplate fracture, which may also be acute. Stable appearance of chronic L2 and L4 compression fractures. CT revealed interval progressive loss of height at T12 compared with the previous exams consistent with a subacute compression fracture. Retropulsion of the posterior margin of the T12 vertebral body into the spinal canal has also worsened resulting in moderate spinal canal stenosis. Dr. Shah was consulted due to acute and chronic compression fractures s/p fall. Patient refuses lower thoracic vertebroplasties with interventional radiology at this time. Continue Oxycodone prn pain (3) Fall Current Visit: Yes Status: Acute Assessment and plan: Acute fall after using restroom with Hx of fall on 08/10 when pt. found to have Hgb of 5.7. Family reports down for approx. 2 hours d/t being unable to get up. Falls/safety precautions, up with assist, bed rest w/bedside commode w/assist only. CT of the head shows no intracranial abnormality. Cervical spine CT shows no acute abnormality of the cervical spine. Degenerative changes. Carotid calcified atheromatous plaque. Pelvis x-ray shows no fracture, dislocation, or diastasis. Hip and SI joint spaces are symmetric. Soft tissues are unremarkable. PT/OT and social work consulted Qualifiers: Encounter type: initial encounter Qualified Code(s): W19.XXXA - Unspecified fall, initial encounter (4) Syncope Current Visit: Yes Status: Acute Assessment and plan: Echo from 08/11 shows LVEF of 55%, mild left ventricular diastolic dysfunction, normal right ventricular structure and function, severely dilated left atrium, mild mitral regurgitation, mild to moderate tricuspid regurgitation, mild pulmonic regurgitation, and mild pulmonary hypertension. Bilateral carotid Doppler revealed nonstenotic plaque bilaterally EEG negative Pt. is moderate risk for further morbidity d/t syncope/fall, recurrence of sx from 08/10, hx of previous CVA w/residual weakness, and risk factors. Observation. Qualifiers: Syncope type: unspecified Qualified Code(s): R55 - Syncope and collapse (5) Anemia Current Visit: Yes Status: Acute Assessment and plan: Hx of anemia since last admission on 08/10 when Hgb was 5.7. Fecal hemoccult positive. Iron < 10, start Ferrous sulfate Recommend colonoscopy to r/o source of iron deficiency anemia Monitor H/H in f/u labs. 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 Falls/safety precautions, up with assist, bed rest w/bedside commode w/assist only. PT/OT consults. (7) Arm laceration Current Visit: Yes Status: Acute Assessment and plan: Acute arm laceration d/t fall. Wound care consult and daily wound care ordered. Qualifiers: Encounter type: initial encounter Laterality: right Qualified Code(s): S41.111A - Laceration without foreign body of right upper arm, initial encounter (8) HTN (hypertension) Current Visit: Yes Status: Chronic Assessment and plan: Hx of chronic HTN. Pt. and family report pt. takes Lisinopril daily but not on pts. home medication list. Hydralazine 10 mg Q6HR PRN w/parameters ordered. Qualifiers: Hypertension type: essential hypertension Qualified Code(s): I10 - Essential (primary) hypertension (9) HLD (hyperlipidemia) Current Visit: Yes Status: Chronic Assessment and plan: Hx of chronic HLD. Lipid panel complete. Continue pts. Lipitor. Qualifiers: Hyperlipidemia type: pure hypercholesterolemia Qualified Code(s): E78.00 - Pure hypercholesterolemia, unspecified; E78.0 - Pure hypercholesterolemia (10) GERD (gastroesophageal reflux disease) Current Visit: Yes Status: Chronic Assessment and plan: Hx of chronic GERD. IVP Protonix 40 mg BID. IVP Zofran 4 mg Q6HR PRN. Qualifiers: Esophagitis presence: esophagitis presence not specified Qualified Code(s) : K21.9 - Gastro-esophageal reflux disease without esophagitis (11) Hypokalemia Current Visit: Yes Status: Acute Assessment and plan: Mild hypokalemia w/potassium of 3.4 on admission. 40 mEq PO potassium ordered. Monitor potassium levels (12) DVT prophylaxis Current Visit: Yes Status: Acute Assessment and plan: Bilateral SCDs on LEs for DVT prophylaxis given GI bleeding (13) Irregular heart rhythm Current Visit: Yes Status: Acute Assessment and plan: Irregular HR on exam. Pt. denies previous hx. Pt. on Plavix for previous CVA. Continuous cardiac telemetry. Continue pts. Plavix. Will avoid aspirin d/t GI bleed. Monitor. - Time Spent With Patient Total time spent is greater than 50% in coordination of care (as documented) at patient's floor/unit and/or counseling patient: - Subjective Interval history: Patient seen and examined resting in bed. Patient reports 10/10 abd pain and feeling like he would pass out when getting up to use the restroom during bowel prep last PM. He was unable to finish the regimen. RN reports his pain level and tachycardia are better controlled after taking Oxycodone. GI was consulted to perform a colonoscopy due to blood in stool. Dr. Shah was consulted due to acute and chronic compression fractures s/p fall. - Constitutional Vitals: Temp Pulse Resp BP Pulse Ox 97.9 F 115 14 140/62 98 08/23/17 06:36 08/23/17 06:36 08/23/17 06:36 08/23/17 06:36 08/23/17 06:36 General appearance: Present: cooperative, mild distress (L-spine pain w/ positional changes), A&O X 3, pleasant, underweight, answers questions appropriately - Head Head exam: Present: atraumatic, normocephalic - Eye Eye exam: Present: PERRL, conjuntiva pink, sclera anicteric Pupils: Present: PERRL - ENT ENT exam: Present: mucous membranes dry, normal oropharynx - Neck Neck exam general surgery: Present: supple, trachea midline. Absent: lymphadenopathy - Respiratory Respiratory exam: Present: CTAB. Absent: accessory muscle use, rales, rhonchi, wheezes - Cardiovascular Cardiovascular exam: Present: RRR, +S1, +S2. Absent: diastolic murmur, gallop, rubs, systolic murmur - GI/Abdominal GI/Abdominal exam: Present: normal bowel sounds, soft, tenderness, no peritoneal signs. Absent: distended, guarding - Extremities Exam Extremities exam: Present: warm, radial pulses palpable and symmetrical. Absent : calf tenderness, cyanotic, pedal edema - Back Exam Back exam: Present: CVA tenderness (R), paraspinal tenderness, tenderness, vertebral tenderness (T12-L2) - Neurological Exam Neurological exam: Present: CN II-XII intact, oriented X3, no focal deficits. Absent: pronater drift, facial droop, speech deficit - Psychiatric Psychiatric exam: Present: normal affect, normal mood - Skin Skin exam: Present: dry, intact, warm Internal Medicine: Result - Labs CBC & Chem 7: 08/23/17 05:12 08/23/17 05:12 Labs: Short CBC 08/22/17 08/22/17 08/23/17 Range/Units 17:30 22:52 05:12 WBC 11.7 H D (4.3-11.1) K/mcL Hgb 8.3 L 8.0 L 8.1 L (12.9-16.9) g/dL Hct 27.4 L 26.2 L 26.4 L (37.5-50.1) % Plt Count 309 (140-400) K/mcL Neutrophils # 9.5 H (1.6-8.9) K/mcL BMP 08/23/17 05:12 Sodium 134 L Potassium 3.6 Chloride 106 Carbon Dioxide 22 L BUN 14 Creatinine 0.70 Glucose 100 Calcium 8.0 L Liver Function 08/23/17 Range/Units 05:12 Total Bilirubin 0.6 (0.3-1.0) mg/dL AST 23 (13-39) Units/L ALT 19 (7-52) Units/L Alkaline Phosphatase 76 (34-104) Units/L Albumin 2.6 L (3.5-5.7) g/dL - ABG Interpretation ABG results: PT/INR, D-dimer PT 11.7 Seconds (9.4-12.1) 08/21/17 10:41 - Pulse Oximetry Interpretation Digit-Finger Pulse Oximetry Readin (On RA) - EKG Interpretation EKG Interpreted by Myself: Yes EKG shows normal: sinus rhythm, axis Rate: tachycardia (frequent PVCs) - Impressions Impressions Abdomen/Pelvis CT 08/23/17 10:44 IMPRESSION: 1. No acute findings within the abdomen or pelvis. 2. Interval progressive loss of height at T12 compared with the previous exams consistent with a subacute compression fracture. Retropulsion of the posterior margin of the T12 vertebral body into the spinal canal has also worsened resulting in moderate spinal canal stenosis. 3. Stable bilateral adrenal adenomas, hepatic and renal cysts. 4. Cholelithiasis. D/ / 08/23/2017 12:30:48 Sravan Stewart MD / mathieu Interpreting Provider: Sravan Stewart MD Consult Discharge Plan - Plan Referrals: Vic Kong DO [Primary Care Provider] - 08/24/17 9:30 am <Nya Sandoval - Last Filed: 08/23/17 13:55> Date of Encounter: 08/23/17 - Assessment and plan (1) GI bleed Current Visit: No Status: Acute Qualifiers: GI bleed type/associated pathology: melena Qualified Code(s): K92.1 - Melena (2) Anemia Current Visit: Yes Status: Acute Qualifiers: Anemia type: iron deficiency Iron deficiency anemia type: unspecified iron deficiency Qualified Code(s): D50.9 - Iron deficiency anemia, unspecified (3) Fall Current Visit: Yes Status: Acute Qualifiers: Encounter type: initial encounter Qualified Code(s): W19.XXXA - Unspecified fall, initial encounter (4) Compression fracture Current Visit: No Status: Acute (5) H/O: CVA (cerebrovascular accident) Current Visit: Yes Status: Chronic (6) Arm laceration Current Visit: Yes Status: Acute Qualifiers: Encounter type: initial encounter Laterality: right Qualified Code(s): S41.111A - Laceration without foreign body of right upper arm, initial encounter (7) Syncope Current Visit: Yes Status: Acute Qualifiers: Syncope type: unspecified Qualified Code(s): R55 - Syncope and collapse (8) HTN (hypertension) Current Visit: Yes Status: Chronic Qualifiers: Hypertension type: essential hypertension Qualified Code(s): I10 - Essential (primary) hypertension (9) HLD (hyperlipidemia) Current Visit: Yes Status: Chronic Qualifiers: Hyperlipidemia type: pure hypercholesterolemia Qualified Code(s): E78.00 - Pure hypercholesterolemia, unspecified; E78.0 - Pure hypercholesterolemia (10) GERD (gastroesophageal reflux disease) Current Visit: Yes Status: Chronic Qualifiers: Esophagitis presence: esophagitis presence not specified Qualified Code(s) : K21.9 - Gastro-esophageal reflux disease without esophagitis (11) DVT prophylaxis Current Visit: Yes Status: Acute (12) Hypokalemia Current Visit: Yes Status: Acute (13) Irregular heart rhythm Current Visit: Yes Status: Acute - Time Spent With Patient Total time spent is greater than 50% in coordination of care (as documented) at patient's floor/unit and/or counseling patient: - Constitutional Vitals: Temp Pulse Resp BP Pulse Ox 97.7 F 96 14 112/44 94 08/23/17 11:48 08/23/17 11:48 08/23/17 11:48 08/23/17 11:48 08/23/17 11:48 Internal Medicine: Result - Labs CBC & Chem 7: 08/23/17 05:12 08/23/17 05:12 Labs: Short CBC 08/22/17 08/22/17 08/23/17 Range/Units 17:30 22:52 05:12 WBC 11.7 H D (4.3-11.1) K/mcL Hgb 8.3 L 8.0 L 8.1 L (12.9-16.9) g/dL Hct 27.4 L 26.2 L 26.4 L (37.5-50.1) % Plt Count 309 (140-400) K/mcL Neutrophils # 9.5 H (1.6-8.9) K/mcL BMP 08/23/17 05:12 Sodium 134 L Potassium 3.6 Chloride 106 Carbon Dioxide 22 L BUN 14 Creatinine 0.70 Glucose 100 Calcium 8.0 L Liver Function 08/23/17 Range/Units 05:12 Total Bilirubin 0.6 (0.3-1.0) mg/dL AST 23 (13-39) Units/L ALT 19 (7-52) Units/L Alkaline Phosphatase 76 (34-104) Units/L Albumin 2.6 L (3.5-5.7) g/dL - ABG Interpretation ABG results: PT/INR, D-dimer PT 11.7 Seconds (9.4-12.1) 08/21/17 10:41 - Impressions Impressions Abdomen/Pelvis CT 08/23/17 10:44 IMPRESSION: 1. No acute findings within the abdomen or pelvis. 2. Interval progressive loss of height at T12 compared with the previous exams consistent with a subacute compression fracture. Retropulsion of the posterior margin of the T12 vertebral body into the spinal canal has also worsened resulting in moderate spinal canal stenosis. 3. Stable bilateral adrenal adenomas, hepatic and renal cysts. 4. Cholelithiasis. D/ / 08/23/2017 12:30:48 Sravan Stewart MD / mathieu Interpreting Provider: Sravan Stewart MD - Attending Attestation I examined this patient and my medical decision-making was reviewed with the Resident Physician Dr. Bey. I agree with the documented findings, disposition and treatment plan as described except to the extent set forth below. Mr. 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 pt had a syncopal episode and fell on the floor. He was down on the floor for almost for 2 hrs. Pt was not able to provide me exact history and what happened before fall and how long he lost his consciousness. He denied any CP. He does c/o lower abdomen and low back pain. Had bright red blood per rectum y/d Gen: A, A, O x 3 Chest: Diminished BS b/l Heart: S1S2 + RRR a/p 1. Syncope - mostly orthostatic so far negative trop carotid doppler - Minimal plaque through out EEG - unremarkable had 2 D Echo recently - no need to repeat 2. Acute GI bleed / BRBPR NPO s/p EGD today - non bleeding erosive gatstropathy d/c Plavix cont PPI, will add Carafate scheduled for colonoscopy Transfuse PRBC PRN 3. Low back pain 4. Acute t12 vertebral fx ortho surgery consulted
[2017-08-23] MEDS ORDERED: Isovue-370 500 ML INFUS..BTL IV ONE (10:44)
--- NOTE | 2017-08-23 12:11 | Gastroenterology Consult Note ---
Date of Encounter: 08/23/17 Time of Encounter: 10:55 - Assessment and plan (1) GI bleed Current Visit: No Status: Acute Assessment and plan: Last EGD 08/11 negative for source of bleed. Pt refused to complete prep for colonoscopy during last admission. Plan to repeat EGD and complete colonoscopy today. At the time of my exam, the patient had completed less than half of the bowel prep. Continue bowel prep and give 2 tap water enemas. Pt agreed to try to finish his prep. Qualifiers: GI bleed type/associated pathology: melena Qualified Code(s): K92.1 - Melena (2) Anemia Current Visit: Yes Status: Acute Assessment and plan: Hgb on admission (08/21) was 9.3 and today Hgb 8.1. Hgb on 08/10 wsa 5.7. Fecal occult blood test was positive on 08/22. Plan for EGD and colonoscopy today. Qualifiers: Anemia type: iron deficiency Iron deficiency anemia type: unspecified iron deficiency Qualified Code(s): D50.9 - Iron deficiency anemia, unspecified - Time Spent With Patient Total time spent is greater than 50% in coordination of care (as documented) at patient's floor/unit and/or counseling patient: GI History of Present Illness - Data of Consult Patient: known to practice within the last 3 years Consult date: 08/23/17 Requesting Physician: Nya Sandoval MD - Consult Narrative Reason for consult: Syncope, blood in stool History of present illness: Mr. Scott is a 81 year old male with PMHx of HTN, HLD, CVA with residual weakness in right lower extremity presented to the ED with complaint of syncope and a fall when standing up from toilet. Pt. states he's unsure if he blacked out but daughter states he was on the floor 2 hours. He denies fever, chills, chest pain, shortness of breath, abdominal pain, nausea, vomiting, diarrhea, constipation. He was recently admitted with GI bleed and EGD showed hiatal hernia and erosive gastropathy. Colonoscopy was planned but patient did not complete the bowel prep and requested to be discharged. History of anemia since last admission on 08/10 when Hgb 5.7. Hgb on admission (08/21) was 9.3 and today Hgb 8.1. Fecal occult blood test was positive on 08/22. Procedures: EGD 08/11/2017 Dr. Garcia: 2cm hiatal hernia, non-bleeding erosive gastropathy. NSAIDs: None Anticoagulation: Plavix Past Med Surg Social Fam HX - Past Medical History Medical history: CVA (5-6 years ago), hyperlipidemia, hypertension Additional medical history: Prostate CA Psychiatric history: no psych history - Past Surgical History Surgical History: no surgical history - Social History Smoking Status: Former smoker Packs per day: Pipe - Reports quitting in 1984 Smokeless Tobacco Status: No Alcohol use: none Drug use: none - Family History Father History Unknown: Yes Race: Family Member Ethnicity: Non- Living Status: Hx Family Cardiac Disorders: Yes Hx Family Respiratory Disorders: No Hx Family Neurologic Disorders: Yes Mother History Unknown: Yes Race: Family Member Ethnicity: Non- Living Status: Brother Race: Family Member Ethnicity: Non- Living Status: Still Living Hx Family Medical Disorders: No Sister History Unknown: Yes Race: Family Member Ethnicity: Non- Living Status: - Gastrointestinal Gastrointestinal: Present: as per HPI - Constitutional Constitutional: as per HPI - EENT Eyes: as per HPI Ears: Present: as per HPI Nose, mouth and throat: Present: as per HPI - Cardiovascular Cardiovascular ROS: Present: as per HPI - Respiratory Respiratory IM: Present: as per HPI - Genitourinary Genitourinary: Absent: change in color, Urinary frequency - Neurological ROS Neurological GI: Present: as per HPI - Hematologic/Lymphatic Hematologic/Lymphatic pediatric: Present: as per HPI - Musculoskeletal Musculoskeletal ROS GI: Present: as per HPI - Integumentary Integumentary GI: Present: as per HPI - Psychiatric ROS Psychiatric GI: Present: as per HPI - Endocrine Endocrine IM: Present: as per HPI - Constitutional Vitals: Temp Pulse Resp BP Pulse Ox 97.7 F 96 14 112/44 94 08/23/17 11:48 08/23/17 11:48 08/23/17 11:48 08/23/17 11:48 08/23/17 11:48 General appearance: Present: cooperative, A&O X 3, no acute distress, answers questions appropriately - Head Head exam: Present: atraumatic, normocephalic - Eye Eye exam: Present: normal appearance, sclera anicteric - ENT ENT exam: Present: mucous membranes moist - Neck Neck exam general surgery: Present: normal inspection, trachea midline - Respiratory Respiratory exam: Present: CTAB. Absent: rales, rhonchi - Cardiovascular Cardiovascular exam: Present: RRR, +S1, +S2 - GI/Abdominal GI/Abdominal exam: Present: soft, no peritoneal signs. Absent: distended, firm , guarding, tenderness - Rectal Rectal exam: Present: deferred - Extremities Exam Extremities exam: Present: warm - Neurological Exam Neurological exam: Present: no focal deficits - Psychiatric Psychiatric exam: Present: normal affect, normal mood - Skin Skin exam: Present: dry, intact, normal color, warm Results - Labs CBC & Chem 7: 08/23/17 05:12 08/23/17 05:12 Labs: Last Result Calcium 8.0 mg/dL (8.6-10.3) L 08/23/17 05:12 Iron < 10 mcg/dL (65-175) L 08/21/17 16:43 % Saturation TNP 08/21/17 16:43 Transferrin 267 mg/dL (203-362) 08/21/17 16:43 Troponin I < 0.03 ng/mL (< 0.04) 08/21/17 22:32 Triglycerides 60 mg/dL (< 150) 08/22/17 00:35 Stool Occult Blood Positive (Negative) A 08/22/17 14:04 Entire Visit Hgb 8.1 g/dL (12.9-16.9) L 08/23/17 05:12 Hct 26.4 % (37.5-50.1) L 08/23/17 05:12 PT 11.7 Seconds (9.4-12.1) 08/21/17 10:41 Total Bilirubin 0.6 mg/dL (0.3-1.0) 08/23/17 05:12 AST 23 Units/L (13-39) 08/23/17 05:12 ALT 19 Units/L (7-52) 08/23/17 05:12 - ABG ABG results: PT/INR, D-dimer PT 11.7 Seconds (9.4-12.1) 08/21/17 10:41 - Impressions Impressions Abdomen/Pelvis CT 08/23/17 10:44 IMPRESSION: 1. No acute findings within the abdomen or pelvis. 2. Interval progressive loss of height at T12 compared with the previous exams consistent with a subacute compression fracture. Retropulsion of posterior margin the T12 vertebral body into the spinal canal has also worsened resulting in moderate spinal canal stenosis. 3. Stable bilateral adrenal adenomas, hepatic and renal cysts. 4. Cholelithiasis. D/ / Sravan Stewart MD / Sravan Stewart MD Interpreting Provider: Sravan Stewart MD Consult Discharge Plan - Plan Referrals: Vic Kong DO [Primary Care Provider] - 08/24/17 9:30 am
[2017-08-23] MEDS: Multivit/Ca/Min/Fe/FA 1 TAB TABLET PO SCH (18:03)
--- NOTE | 2017-08-23 18:42 | Electrocardiograph Report ---
[place] [id number] Test Date: 2017-08-23 Pat Name: Abdelrahman Scott Department: 113 Room: 3B Gender: M Planning Associate: : 1935 Requested By: Eli Méndez Order Number: [id number] Reading MD: Shaheed Boykin Measurements Intervals [place] Rate: 123 P: 72 KS: 148 QRS: 34 QRSD: 73 T: 70 QT: 326 QTc: 399 Interpretive Statements SINUS TACHYCARDIA WITH FREQUENT VENTRICULAR PREMATURE COMPLEXES WITH OCCASIONAL SUPRAVENTRICULAR PREMATURE COMPLEXES Electronically Signed On 08-23-2017 18:40:27 EDT by Shaheed Boykin
[2017-08-23] MEDS ORDERED: Naloxone 0.4 MG/ML INJ IVP PRN (19:13)
[2017-08-23] MEDS ORDERED: OXYCODONE Oral CONC 10 MG/0.5 ML ORAL.SYG SL PRN (19:13)
[2017-08-23] MEDS ORDERED: Ondansetron 4 MG/2 ML VIAL IVP PRN (19:13)
[2017-08-23] MEDS: Acetaminophen 325 MG TABLET PO PRN (21:32)
[2017-08-24] MEDS ORDERED: Pantoprazole 40 MG VIAL IVP SCH (06:00)
[2017-08-24 07:01] LABS: Basophils % 0.3 %; Eosinophils # 0.1 K/mcL (0.0-0.6); Eosinophils % 1.8 %; Hematocrit 28.5 % (37.5-50.1); Hemoglobin 8.6 g/dL (12.9-16.9); Immature Granulocytes % 0.3 % (0-4); Lymphocytes # 1.6 K/mcL (0.6-4.6); Lymphocytes % 23.6 %; Mean Corpuscular HGB Conc 30.2 g/dL (31.6-35.5); Mean Corpuscular Hemoglobin 22.7 pg (28.0-33.3); Mean Corpuscular Volume 75.2 fL (83.0-100.0); Mean Platelet Volume 9.2 fL (9.4-12.4); Monocytes # 0.4 K/mcL (0.0-1.3); Monocytes % 6.4 %; Neutrophils # 4.5 K/mcL (1.6-8.9); Platelet Count 365 K/mcL (140-400); Red Blood Count 3.79 M/mcL (4.19-5.50); Red Cell Distribution Width 20.7 % (11.5-14.5); Segmented Neutrophils % 67.6 %
[2017-08-24 07:14] LABS: Alanine Aminotransferase 20 Units/L (7-52); Albumin 2.8 g/dL (3.5-5.7); Alkaline Phosphatase 83 Units/L (34-104); Aspartate Amino Transferase 25 Units/L (13-39); BUN/Creatinine Ratio 16 (6-26); Bilirubin,Total 0.6 mg/dL (0.3-1.0); Blood Urea Nitrogen 12 mg/dL (8-23); Calcium 8.5 mg/dL (8.6-10.3); Carbon Dioxide 23 mEq/L (23-29); Chloride 106 mEq/L (98-107); Globulin 2.8 g/dL (2.4-3.5); Glucose 85 mg/dL (70-105); Osmolality,Calculated 283 (280-300); Potassium 3.8 mEq/L (3.5-5.1); Sodium 137 mEq/L (136-145); Total Protein 5.6 g/dL (6.4-8.9); eGFR For African Americans > 60 (> 60); eGFR For Non-African Americans > 60 (> 60)
--- NOTE | 2017-08-24 07:54 | Pain Management Consultation ---
Date of Encounter: 08/24/17 Time of Encounter: 07:54 Assessment and Plan (1) Compression fracture Current Visit: No Status: Acute The assessment and plan as outlined above was discussed with the patient and/or family members who expressed understanding and agreement. All questions were answered. The patient, the daughter and I had a nice discussion and I do not believe the patient's pain in the low back is in any way correlating to the compression fracture. the compression fracture is asymptomatic. My recommendations are to fulfil workup for other complaints (to include abdominal pain) and then when D/ C is appropriate, I would ask to see him as an outpatient for f/u and continued outpatient care of the fracture. No bracing or significant pain control is warranted at this time. History of Present Illness Chief complaint: Back pain HPI: Mr. Scott is a 81 year old male With a history of fall on Tuesday. The patient had lost his balance. 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 Patient was admitted with scans showing a new her compression fracture. The patient states he does not have any back pain in the area of the known fracture. The pain he has is a mild amount of pain in his right low back. It does not radiate. It does not hurt when he sits up out of bed. He is able to get up into the bedside commode and bear weight without any issues. There is no report of new weakness. No report of paresthesias or dysesthesias to lower extremities. The patient reports no bowel or bladder dysfunction. Currently the patient is taking oxycodone with some solution. Past Med Surg Social Fam HX - Past Medical History Medical history: CVA (5-6 years ago), hyperlipidemia, hypertension Additional medical history: Prostate CA Psychiatric history: no psych history - Past Surgical History Surgical History: no surgical history - Social History Smoking Status: Former smoker Packs per day: Pipe - Reports quitting in 1984 Smokeless Tobacco Status: No Alcohol use: none Drug use: none - Family History Father History Unknown: Yes Race: Family Member Ethnicity: Non- Living Status: Hx Family Cardiac Disorders: Yes Hx Family Respiratory Disorders: No Hx Family Neurologic Disorders: Yes Mother History Unknown: Yes Race: Family Member Ethnicity: Non- Living Status: Brother Race: Family Member Ethnicity: Non- Living Status: Still Living Hx Family Medical Disorders: No Sister History Unknown: Yes Race: Family Member Ethnicity: Non- Living Status: Medications and Allergies Atorvastatin [Lipitor] 40 mg PO HS 08/10/17 [History] Multivit-Min/FA/Lycopen/Lutein [A Thru Z Select Men 50+ Tablet] 1 tab PO DAILY 08/10/17 [History] Docusate [Colace] 100 mg PO BID #20 capsule 08/13/17 [Rx] Clopidogrel [Plavix] 75 mg PO DAILY 08/21/17 [History] Pantoprazole Sodium 40 mg PO BID 08/21/17 [History] 3 Allergy/AdvReac Type Severity Reaction Status Date / Time No Known Allergies Allergy Verified 08/21/17 12:34 Review of Systems - Constitutional Constitutional ROS IM: no photophobia, no phonophobia, no daytime sleepiness, no fever(s), no stops breathing during sleep - EENT Nose, mouth and throat: no headache(s), no neck pain, no neck trauma - Cardiovascular Cardiovascular ROS: no chest pain, no leg edema, no lightheadedness - Respiratory Respiratory: no pain on inspiration, no pain with cough - Gastrointestinal Gastrointestinal: as per HPI - Genitourinary Genitourinary ROS: no difficulty urinating, no flank pain, no urinary hesitancy - Musculoskeletal Musculoskeletal ROS: as per HPI, muscle weakness (Right LE mild weakness 4/5. ) - Integumentary Integumentary: no erythema, no lesions, no swelling - Neurological Neurological ROS: focal weakness - Psychiatric Psychiatric general: no anxiety, no confusion, no depression - Hematologic/Lymphatic Hematologic/Lymphatic pediatric: no easy bleeding, no easy bruising Physical Exam Initial Vital Signs Temp Pulse Resp BP Pulse Ox 98.5 F 120 15 134/84 94 08/21/17 10:18 08/21/17 10:18 08/21/17 10:18 08/21/17 10:18 08/21/17 10:18 - General physical appearance General physical appearance: awake & oriented, no distress, no pain - Eyes Eye exam: normal ocular movement - Neck trachea midline - Respiratory normal respiratory effort - Cardiovascular Cardiovascular exam: Present: RRR - Integumentary Integumentary general surgery: no rash - Neurologic normal coordination - Musculoskeletal Musculoskeletal: kyphosis (No Spinal Tenderness over the thoracic spine. ) - Psychiatric Psychiatric: oriented to time, oriented to person, oriented to place Results - Labs 08/24/17 06:10 08/24/17 06:10 Abnormal lab results RBC 3.79 M/mcL (4.19-5.50) L 08/24/17 06:10 Hgb 8.6 g/dL (12.9-16.9) L 08/24/17 06:10 Hct 28.5 % (37.5-50.1) L 08/24/17 06:10 MCV 75.2 fL (83.0-100.0) L 08/24/17 06:10 MCH 22.7 pg (28.0-33.3) L 08/24/17 06:10 MCHC 30.2 g/dL (31.6-35.5) L 08/24/17 06:10 RDW 20.7 % (11.5-14.5) H 08/24/17 06:10 MPV 9.2 fL (9.4-12.4) L 08/24/17 06:10 Hemoglobin A1c 6.1 % (-5.6) H 08/22/17 00:35 Calcium 8.5 mg/dL (8.6-10.3) L 08/24/17 06:10 Iron < 10 mcg/dL (65-175) L 08/21/17 16:43 Serum Total Protein 5.6 g/dL (6.4-8.9) L 08/24/17 06:10 Albumin 2.8 g/dL (3.5-5.7) L 08/24/17 06:10 Albumin/Globulin Ratio 1.0 (1.1-2.2) L 08/24/17 06:10 Urine Protein 30 mg/dL (Neg-Trace) H 08/21/17 11:15 Urine Ketones Trace mg/dL (Negative) H 08/21/17 11:15 Stool Occult Blood Positive (Negative) A 08/22/17 14:04 Diabetes panel 08/24/17 Range/Units 06:10 Sodium 137 (136-145) mEq/L Potassium 3.8 (3.5-5.1) mEq/L Chloride 106 (98-107) mEq/L Carbon Dioxide 23 (23-29) mEq/L BUN 12 (8-23) mg/dL Creatinine 0.74 (0.70-1.30) mg/dL Glucose 85 (70-105) mg/dL Calcium 8.5 L (8.6-10.3) mg/dL AST 25 (13-39) Units/L ALT 20 (7-52) Units/L Alkaline Phosphatase 83 (34-104) Units/L Albumin 2.8 L (3.5-5.7) g/dL Calcium panel 08/24/17 Range/Units 06:10 Calcium 8.5 L (8.6-10.3) mg/dL Albumin 2.8 L (3.5-5.7) g/dL Pituitary panel 08/24/17 Range/Units 06:10 Sodium 137 (136-145) mEq/L Potassium 3.8 (3.5-5.1) mEq/L Chloride 106 (98-107) mEq/L Carbon Dioxide 23 (23-29) mEq/L BUN 12 (8-23) mg/dL Creatinine 0.74 (0.70-1.30) mg/dL Glucose 85 (70-105) mg/dL Calcium 8.5 L (8.6-10.3) mg/dL Adrenal panel 08/24/17 Range/Units 06:10 Sodium 137 (136-145) mEq/L Potassium 3.8 (3.5-5.1) mEq/L Chloride 106 (98-107) mEq/L Carbon Dioxide 23 (23-29) mEq/L BUN 12 (8-23) mg/dL Creatinine 0.74 (0.70-1.30) mg/dL Glucose 85 (70-105) mg/dL Calcium 8.5 L (8.6-10.3) mg/dL Total Bilirubin 0.6 (0.3-1.0) mg/dL AST 25 (13-39) Units/L ALT 20 (7-52) Units/L Alkaline Phosphatase 83 (34-104) Units/L Albumin 2.8 L (3.5-5.7) g/dL All other labs normal. - Imaging Additional studies: Reviewed the MRI in detail: Per MRI: " MR/MR lumbar spine wo con IMPRESSION: Acute superior endplate fracture of T12 resulting in 50% loss of vertebral body height and moderate focal narrowing of the thecal sac. 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 D/ / Kt Dukes MD / Kt Dukes MD Interpreting Provider: Kt Dukes MD " - VTE Documentation of Mechanical Device: Intermittent pneumatic compression device Consult Discharge Plan - Plan Referrals: Vic Kong DO [Primary Care Provider] - 08/24/17 9:30 am
--- NOTE | 2017-08-24 08:31 | Internal Med Progress Note ---
<Abdelrahman Bey - Last Filed: 08/24/17 13:24> Date of Encounter: 08/24/17 Time of Encounter: 08:29 - Assessment and plan (1) GI bleed Current Visit: No Status: Acute Assessment and plan: EGD was normal 08/11/17 GI was consulted to perform an EGD/ colonoscopy due to blood in stool. Patient was not able to drink bowel prep regimen 08/22/17. CT abd/plv revealed no acute intra-abdominal abnormality Patient is NPO awaiting EGD. Anticipate colonoscopy once patient is tolerating bowel prep. Qualifiers: GI bleed type/associated pathology: melena Qualified Code(s): K92.1 - Melena (2) Compression fracture Current Visit: No Status: Acute Assessment and plan: L-spine x-ray reveals moderate T12 compression fracture, which is more compressed from previous examinations, and is therefore at least in part acute. Mild T11 inferior endplate fracture, which may also be acute. Stable appearance of chronic L2 and L4 compression fractures. CT revealed interval progressive loss of height at T12 compared with the previous exams consistent with a subacute compression fracture. Retropulsion of the posterior margin of the T12 vertebral body into the spinal canal has also worsened resulting in moderate spinal canal stenosis. MRI L-spine revealed Acute superior endplate fracture of T12 resulting in 50% loss of vertebral body height and moderate focal narrowing of the thecal sac. Dr. Shah was consulted due to acute and chronic compression fractures s/p fall. Patient refuses lower thoracic vertebroplasties at this time Continue Oxycodone prn pain (3) Fall Current Visit: Yes Status: Acute Assessment and plan: Acute fall after using restroom with Hx of fall on 08/10 when pt. found to have Hgb of 5.7. Family reports down for approx. 2 hours d/t being unable to get up. Falls/safety precautions, up with assist, bed rest w/bedside commode w/assist only. CT of the head shows no intracranial abnormality. Cervical spine CT shows no acute abnormality of the cervical spine. Degenerative changes. Carotid calcified atheromatous plaque. Pelvis x-ray shows no fracture, dislocation, or diastasis. Hip and SI joint spaces are symmetric. Soft tissues are unremarkable. PT/OT and social work consulted Qualifiers: Encounter type: initial encounter Qualified Code(s): W19.XXXA - Unspecified fall, initial encounter (4) Syncope Current Visit: Yes Status: Acute Assessment and plan: Echo from 08/11 shows LVEF of 55%, mild left ventricular diastolic dysfunction, normal right ventricular structure and function, severely dilated left atrium, mild mitral regurgitation, mild to moderate tricuspid regurgitation, mild pulmonic regurgitation, and mild pulmonary hypertension. Bilateral carotid Doppler revealed nonstenotic plaque bilaterally EEG negative Patient is moderate risk for further morbidity d/t syncope/fall, recurrence of sx from 08/10, hx of previous CVA w/residual weakness, and risk factors. Observation. Qualifiers: Syncope type: unspecified Qualified Code(s): R55 - Syncope and collapse (5) Anemia Current Visit: Yes Status: Acute Assessment and plan: Hx of anemia since last admission on 08/10 when Hgb was 5.7. HGB stable Fecal hemoccult positive. Iron < 10, continue Ferrous sulfate Recommend colonoscopy to r/o source of iron deficiency anemia Monitor H/H in f/u labs. 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 Falls/safety precautions, up with assist, bed rest w/bedside commode w/assist only. PT/OT consults. (7) Arm laceration Current Visit: Yes Status: Acute Assessment and plan: Acute arm laceration d/t fall. Wound care consult and daily wound care ordered. Qualifiers: Encounter type: initial encounter Laterality: right Qualified Code(s): S41.111A - Laceration without foreign body of right upper arm, initial encounter (8) HTN (hypertension) Current Visit: Yes Status: Chronic Assessment and plan: Hx of chronic HTN. Pt. and family report pt. takes Lisinopril daily but not on pts. home medication list. Hydralazine 10 mg Q6HR PRN w/parameters ordered. Qualifiers: Hypertension type: essential hypertension Qualified Code(s): I10 - Essential (primary) hypertension (9) HLD (hyperlipidemia) Current Visit: Yes Status: Chronic Assessment and plan: Hx of chronic HLD. Lipid panel complete. Continue pts. Lipitor. Qualifiers: Hyperlipidemia type: pure hypercholesterolemia Qualified Code(s): E78.00 - Pure hypercholesterolemia, unspecified; E78.0 - Pure hypercholesterolemia (10) GERD (gastroesophageal reflux disease) Current Visit: Yes Status: Chronic Assessment and plan: Hx of chronic GERD. IVP Protonix 40 mg BID. IVP Zofran 4 mg Q6HR PRN. Qualifiers: Esophagitis presence: esophagitis presence not specified Qualified Code(s) : K21.9 - Gastro-esophageal reflux disease without esophagitis (11) Hypokalemia Current Visit: Yes Status: Resolved Assessment and plan: Mild hypokalemia w/potassium of 3.4 on admission. 40 mEq PO potassium ordered. Monitor potassium levels (12) DVT prophylaxis Current Visit: Yes Status: Acute Assessment and plan: Bilateral SCDs on LEs for DVT prophylaxis given GI bleeding (13) Irregular heart rhythm Current Visit: Yes Status: Acute Assessment and plan: Irregular HR on exam. Pt. denies previous hx. Pt. on Plavix for previous CVA. Discontinue Plavix and aspirin d/t GI bleed. Monitor on telemetry unit/ Continuous cardiac telemetry. - Time Spent With Patient Total time spent is greater than 50% in coordination of care (as documented) at patient's floor/unit and/or counseling patient: - Subjective Interval history: Patient seen and examined resting in bed. Patient reports decreased abd pain today and feeling improved. He continues to drink bowel prep regimen and reports non-clear BMs this AM. GI plans to perform EGD/ colonoscopy due to blood in stool. Dr. Shah was consulted due to acute and chronic compression fractures s/p fall. - Constitutional Vitals: Temp Pulse Resp BP Pulse Ox 98.2 F 107 16 152/68 95 08/24/17 07:44 08/24/17 07:44 08/24/17 07:44 08/24/17 07:44 08/24/17 07:44 General appearance: Present: cooperative, mild distress (L-spine pain ), A&O X 3 , pleasant, underweight, answers questions appropriately - Head Head exam: Present: atraumatic, normocephalic - Eye Eye exam: Present: PERRL, conjuntiva pink, sclera anicteric Pupils: Present: PERRL - ENT ENT exam: Present: mucous membranes moist, normal oropharynx - Neck Neck exam general surgery: Present: supple, trachea midline. Absent: lymphadenopathy - Respiratory Respiratory exam: Present: decreased breath sounds (bilaterally). Absent: accessory muscle use, rales, rhonchi, wheezes - Cardiovascular Cardiovascular exam: Present: RRR, +S1, +S2. Absent: diastolic murmur, gallop, rubs, systolic murmur - GI/Abdominal GI/Abdominal exam: Present: normal bowel sounds, soft, no peritoneal signs. Absent: distended, tenderness - Extremities Exam Extremities exam: Present: warm, radial pulses palpable and symmetrical. Absent : calf tenderness, cyanotic, pedal edema - Back Exam Back exam: Present: normal inspection, paraspinal tenderness, tenderness, vertebral tenderness - Neurological Exam Neurological exam: Present: alert, CN II-XII intact, oriented X3, no focal deficits, strengths equal and symetr throughout. Absent: pronater drift, facial droop, speech deficit - Psychiatric Psychiatric exam: Present: normal affect, normal mood - Skin Skin exam: Present: dry, intact, normal color, warm Internal Medicine: Result - Labs CBC & Chem 7: 08/24/17 06:10 08/24/17 06:10 Labs: Short CBC 08/24/17 Range/Units 06:10 WBC 6.6 (4.3-11.1) K/mcL Hgb 8.6 L (12.9-16.9) g/dL Hct 28.5 L (37.5-50.1) % Plt Count 365 (140-400) K/mcL Neutrophils # 4.5 (1.6-8.9) K/mcL BMP 08/24/17 06:10 Sodium 137 Potassium 3.8 Chloride 106 Carbon Dioxide 23 BUN 12 Creatinine 0.74 Glucose 85 Calcium 8.5 L Liver Function 08/24/17 Range/Units 06:10 Total Bilirubin 0.6 (0.3-1.0) mg/dL AST 25 (13-39) Units/L ALT 20 (7-52) Units/L Alkaline Phosphatase 83 (34-104) Units/L Albumin 2.8 L (3.5-5.7) g/dL - ABG Interpretation ABG results: PT/INR, D-dimer PT 11.7 Seconds (9.4-12.1) 08/21/17 10:41 - Pulse Oximetry Interpretation Digit-Finger Pulse Oximetry Readin (On RA) - Impressions Impressions Abdomen/Pelvis CT 08/23/17 10:44 IMPRESSION: 1. No acute findings within the abdomen or pelvis. 2. Interval progressive loss of height at T12 compared with the previous exams consistent with a subacute compression fracture. Retropulsion of the posterior margin of the T12 vertebral body into the spinal canal has also worsened resulting in moderate spinal canal stenosis. 3. Stable bilateral adrenal adenomas, hepatic and renal cysts. 4. Cholelithiasis. D/ / 08/23/2017 12:30:48 Sravan Stewart MD / mathieu Interpreting Provider: Sravan Stewart MD Lumbar Spine MRI 08/23/17 14:51 IMPRESSION: Acute superior endplate fracture of T12 resulting in 50% loss of vertebral body height and moderate focal narrowing of the thecal sac. 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 D/ / Kt Dukes MD / Kt Dukes MD Interpreting Provider: Kt Dukes MD - VTE Documentation of Mechanical Device: Intermittent pneumatic compression device Consult Discharge Plan - Plan Referrals: Vic Kong DO [Primary Care Provider] - 08/24/17 9:30 am <Nya Sandoval - Last Filed: 08/24/17 14:06> Date of Encounter: 08/24/17 - Assessment and plan (1) GI bleed Current Visit: No Status: Acute Qualifiers: GI bleed type/associated pathology: melena Qualified Code(s): K92.1 - Melena (2) Anemia Current Visit: Yes Status: Acute Qualifiers: Anemia type: iron deficiency Iron deficiency anemia type: unspecified iron deficiency Qualified Code(s): D50.9 - Iron deficiency anemia, unspecified (3) Fall Current Visit: Yes Status: Acute Qualifiers: Encounter type: initial encounter Qualified Code(s): W19.XXXA - Unspecified fall, initial encounter (4) Compression fracture Current Visit: No Status: Acute (5) H/O: CVA (cerebrovascular accident) Current Visit: Yes Status: Chronic (6) Arm laceration Current Visit: Yes Status: Acute Qualifiers: Encounter type: initial encounter Laterality: right Qualified Code(s): S41.111A - Laceration without foreign body of right upper arm, initial encounter (7) Syncope Current Visit: Yes Status: Acute Qualifiers: Syncope type: unspecified Qualified Code(s): R55 - Syncope and collapse (8) HTN (hypertension) Current Visit: Yes Status: Chronic Qualifiers: Hypertension type: essential hypertension Qualified Code(s): I10 - Essential (primary) hypertension (9) HLD (hyperlipidemia) Current Visit: Yes Status: Chronic Qualifiers: Hyperlipidemia type: pure hypercholesterolemia Qualified Code(s): E78.00 - Pure hypercholesterolemia, unspecified; E78.0 - Pure hypercholesterolemia (10) GERD (gastroesophageal reflux disease) Current Visit: Yes Status: Chronic Qualifiers: Esophagitis presence: esophagitis presence not specified Qualified Code(s) : K21.9 - Gastro-esophageal reflux disease without esophagitis (11) DVT prophylaxis Current Visit: Yes Status: Acute (12) Hypokalemia Current Visit: Yes Status: Resolved (13) Irregular heart rhythm Current Visit: Yes Status: Acute - Time Spent With Patient Total time spent is greater than 50% in coordination of care (as documented) at patient's floor/unit and/or counseling patient: - Constitutional Vitals: Temp Pulse Resp BP Pulse Ox 97.9 F 92 16 160/88 95 08/24/17 11:41 08/24/17 13:32 08/24/17 13:32 08/24/17 13:32 08/24/17 13:32 Internal Medicine: Result - Labs CBC & Chem 7: 08/24/17 06:10 08/24/17 06:10 Labs: Short CBC 08/24/17 Range/Units 06:10 WBC 6.6 (4.3-11.1) K/mcL Hgb 8.6 L (12.9-16.9) g/dL Hct 28.5 L (37.5-50.1) % Plt Count 365 (140-400) K/mcL Neutrophils # 4.5 (1.6-8.9) K/mcL BMP 08/24/17 06:10 Sodium 137 Potassium 3.8 Chloride 106 Carbon Dioxide 23 BUN 12 Creatinine 0.74 Glucose 85 Calcium 8.5 L Liver Function 08/24/17 Range/Units 06:10 Total Bilirubin 0.6 (0.3-1.0) mg/dL AST 25 (13-39) Units/L ALT 20 (7-52) Units/L Alkaline Phosphatase 83 (34-104) Units/L Albumin 2.8 L (3.5-5.7) g/dL - ABG Interpretation ABG results: PT/INR, D-dimer PT 11.7 Seconds (9.4-12.1) 08/21/17 10:41 - Impressions Impressions Abdomen/Pelvis CT 08/23/17 10:44 IMPRESSION: 1. No acute findings within the abdomen or pelvis. 2. Interval progressive loss of height at T12 compared with the previous exams consistent with a subacute compression fracture. Retropulsion of the posterior margin of the T12 vertebral body into the spinal canal has also worsened resulting in moderate spinal canal stenosis. 3. Stable bilateral adrenal adenomas, hepatic and renal cysts. 4. Cholelithiasis. D/ / 08/23/2017 12:30:48 Sravan Stewart MD / mathieu Interpreting Provider: Sravan Stewart MD Lumbar Spine MRI 08/23/17 14:51 IMPRESSION: Acute superior endplate fracture of T12 resulting in 50% loss of vertebral body height and moderate focal narrowing of the thecal sac. 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 D/ / Kt Dukes MD / Kt Dukes MD Interpreting Provider: Kt Dukes MD - Attending Attestation I examined this patient and my medical decision-making was reviewed with the Resident Physician Dr. Bey. I agree with the documented findings, disposition and treatment plan as described except to the extent set forth below. Mr. 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 pt had a syncopal episode and fell on the floor. He was down on the floor for almost for 2 hrs. Pt was not able to provide me exact history and what happened before fall and how long he lost his consciousness. He denied any CP. Denied any abdominal pain. Feels better today Gen: A, A, O x 3 Chest: Diminished BS b/l Heart: S1S2 + RRR a/p 1. Syncope - mostly orthostatic so far negative trop carotid doppler - Minimal plaque through out EEG - unremarkable had 2 D Echo recently - no need to repeat 2. Acute GI bleed / BRBPR NPO s/p EGD - non bleeding erosive gatstropathy d/c Plavix cont PPI, and added Carafate scheduled for colonoscopy today Transfuse PRBC PRN 3. Low back pain 4. Acute T12 vertebral fx Dr. Shah consulted
[2017-08-24] MEDS: Multivit/Ca/Min/Fe/FA 1 TAB TABLET PO SCH (10:36)
[2017-08-24] MEDS ORDERED: Propofol 500 MG/50 ML INFUS..BTL ONE (12:28)
--- NOTE | 2017-08-24 13:14 | Anesthesia Evaluation PreOp ---
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: CVA (5-6 years ago, RLE defecit), Syncope Other Medical History: Denies Any Significant HX Anesthesia History: No Prior Anesthetic Complications, Past Anesthesia (EGD) Alcohol Use: none Drug use: none Medications and Allergies Atorvastatin [Lipitor] 40 mg PO HS 08/10/17 [History] Multivit-Min/FA/Lycopen/Lutein [A Thru Z Select Men 50+ Tablet] 1 tab PO DAILY 08/10/17 [History] Docusate [Colace] 100 mg PO BID #20 capsule 08/13/17 [Rx] Clopidogrel [Plavix] 75 mg PO DAILY 08/21/17 [History] Pantoprazole Sodium 40 mg PO BID 08/21/17 [History] 3 Allergy/AdvReac Type Severity Reaction Status Date / Time No Known Allergies Allergy Verified 08/21/17 12:34 - Meds/Allergy Pre-op Review Medications Reviewed: Yes Allergies Reviewed: Yes Beta Blockers on Current Med List: No Anesthesia Results - Labs 08/24/17 06:10 08/24/17 06:10 Echocardiogram Name: Abdelrahman Scott Date of Study: 08/11/2017 EV/EV echocardiogram Impressions: LVEF 55%. Mild left ventricular diastolic dysfunction. Normal right ventricular structure and function. Severely dilated left atrium. Mild mitral regurgitation. Mild-moderate tricuspid regurgitation. Mild pulmonic regurgitation. Mild pulmonary hypertension. - Imaging EKG: report reviewed (SINUS TACHYCARDIA WITH FREQUENT VENTRICULAR PREMATURE COMPLEXES WITH OCCASIONAL SUPRAVENTRICULAR PREMATURE COMPLEXES) Anesthesia Exam Vital Signs/O2 Sat, Most Current Temp Pulse Resp BP Pulse Ox 97.9 F 101 16 155/65 92 08/24/17 11:41 08/24/17 11:41 08/24/17 11:41 08/24/17 11:41 08/24/17 11:41 Blood glucose: 91 NPO (# of Hours): > 8 hrs Pain Scale: 0 Pain Scale Used: Numeric (1 - 10) - HEENT Pupil (Motor): Pupils equal, EOMI Mallampati: II Teeth: Edentulous Denture Type: Upper: Complete, Lower: Complete Oral Opening: Greater than 3 - FISH PROCESSOR LOC: Oriented FISH PROCESSOR Motor: Normal RUE, Normal LUE, Normal LLE, Normal Face, Deficit RLE FISH PROCESSOR Sensory: Normal: RUE, LUE, RLE, LLE, Face - Cardiac Rhythm: Regular Murmur: None JVD: No Carotid Bruit: No - Pulmonary Breath Sounds: bilateral Clear Respiratory Effort: Symmetrical Anesthesia Assess/Plan ASA Score: 3 Modified [place] Scale for Level of Consciousness: Cooperative, oriented, and tranquil Anesthetic Plan: MAC Autologous Blood: Yes Monitoring Plan: Standard Monitors Recovery Plan: Other
[2017-08-24] MEDS ORDERED: 0.9 % Sodium Chloride 500 ML IVC SCH (13:45)
--- NOTE | 2017-08-24 15:33 | Anesthesia Evaluation Post Op ---
Date of Encounter: 08/24/17 Time of Encounter: 15:32 - Vital Signs Vital Signs: Vital Signs/O2 Sat, Most Current Temp Pulse Resp BP Pulse Ox 97.8 F 71 18 161/70 98 08/24/17 14:34 08/24/17 14:45 08/24/17 14:45 08/24/17 14:45 08/24/17 14:45 - Lungs Lungs: Clear Ascult./Percussion - Airway Airway: Non-obstructed - Cardiovascular Regular Rate - Mental Status Mental Status: Alert & Oriented, Answers Appropriately - Pain Pain Scale: 0 Pain Scale used: Numeric (1 - 10) - Nausea Vomiting Nausea Vomiting: Not Present - Hydration Hydration: NPO, Has not voided - Discharge PostOp Status: Transfer Patient to floor
[2017-08-24] MEDS: Sucralfate 1 GM TABLET PO SCH ×2 (15:56→21:15)
[2017-08-25] MEDS: Acetaminophen 325 MG TABLET PO PRN (03:40)
[2017-08-25 07:17] LABS: Hemoglobin 8.1 g/dL (12.9-16.9); Mean Corpuscular Hemoglobin 22.5 pg (28.0-33.3); Mean Platelet Volume 9.2 fL (9.4-12.4); Platelet Count 349 K/mcL (140-400); Red Cell Distribution Width 20.5 % (11.5-14.5)
[2017-08-25] MEDS: Multivit/Ca/Min/Fe/FA 1 TAB TABLET PO SCH (09:03)
[2017-08-25] MEDS: Sucralfate 1 GM TABLET PO SCH ×2 (09:03→15:43)
[2017-08-25] MEDS ORDERED: Isovue-370 500 ML INFUS..BTL IV ONE ×3 (10:13→12:58)
[2017-08-25 10:53] VITALS: BP 131/70
--- NOTE | 2017-08-25 15:38 | Discharge Summary ---
<Daniel Wang - Last Filed: 08/25/17 16:07> Orders not resulted at time of discharge: Pending orders 08/24/17 14:06 Surgical Pathology [PTH] Routine Date of Encounter: 08/25/17 Time of Encounter: 09:45 - Discharge Diagnosis (1) GI bleed Priority: Primary Status: Acute Qualifiers: GI bleed type/associated pathology: melena Qualified Code(s): K92.1 - Melena (2) Anemia Priority: Secondary Status: Acute Qualifiers: Anemia type: iron deficiency Iron deficiency anemia type: unspecified iron deficiency Qualified Code(s): D50.9 - Iron deficiency anemia, unspecified (3) Fall Priority: Secondary Status: Acute Qualifiers: Encounter type: initial encounter Qualified Code(s): W19.XXXA - Unspecified fall, initial encounter (4) Compression fracture Priority: Secondary Status: Acute (5) H/O: CVA (cerebrovascular accident) Priority: Secondary Status: Chronic (6) Arm laceration Priority: Secondary Status: Acute Qualifiers: Encounter type: initial encounter Laterality: right Qualified Code(s): S41.111A - Laceration without foreign body of right upper arm, initial encounter (7) Syncope Priority: Secondary Status: Acute Qualifiers: Syncope type: unspecified Qualified Code(s): R55 - Syncope and collapse (8) HTN (hypertension) Priority: Secondary Status: Chronic Qualifiers: Hypertension type: essential hypertension Qualified Code(s): I10 - Essential (primary) hypertension (9) HLD (hyperlipidemia) Priority: Secondary Status: Chronic Qualifiers: Hyperlipidemia type: pure hypercholesterolemia Qualified Code(s): E78.00 - Pure hypercholesterolemia, unspecified; E78.0 - Pure hypercholesterolemia (10) GERD (gastroesophageal reflux disease) Priority: Secondary Status: Chronic Qualifiers: Esophagitis presence: esophagitis presence not specified Qualified Code(s) : K21.9 - Gastro-esophageal reflux disease without esophagitis (11) DVT prophylaxis Priority: Secondary Status: Acute (12) Hypokalemia Priority: Secondary Status: Resolved (13) Irregular heart rhythm Priority: Secondary Status: Acute Hospital course: Mr. 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 Pt states he's unsure if he blacked out but daughter states he was on the floor 2 hours. He was recently admitted with GI bleed and EGD showed hiatal hernia and erosive gastropathy. Colonoscopy was planned during that time but patient did not complete the bowel prep and requested to be discharged. Imaging obtained this admission showed CT head negative for acute intracranial bleed, carotid shows nonstenotic L&R sided plaques. Patient's labs shows persistent anemia, colonoscopy was performed 08/23 , demonstrating a partially obstructing mass mid-rectum. Currently awaiting path report. Appointments scheduled with GI, Surgery, and Heme/Onc outpatient. Patient is hemodynamically stable, lengthy discussion with family regarding outpatient plan as patient seeks discharge if at all possible (daughter agrees to close follow-up outpatient)-- the tentative plan is for heme/onc to reduce tumor burden prior to surgery. Regarding meds, we are holding his plavix given acute bleed (home med for past CVA), will discharge with po pain medication and stool softeners. - Time Spent with Patient Total time spent providing and/or coordinating discharge services: - Discharge Medications Prescriptions: HYDROcodone/Acet 5/325 mg [Rector 5-325 mg] 1 tab PO Q6H PRN 5 Days #20 tab PRN Reason: Moderate Pain Polyethylene Glycol 3350 [MiraLAX] 17 gm PO DAILY #30 powd.pack Sennosides/Docusate Sodium [Senna Plus] 1 each PO BID #60 tablet Home Medications: Atorvastatin [Lipitor] 40 mg PO HS 08/10/17 [History] Multivit-Min/FA/Lycopen/Lutein [A Thru Z Select Men 50+ Tablet] 1 tab PO DAILY 08/10/17 [History] Docusate [Colace] 100 mg PO BID #20 capsule 08/13/17 [Rx] Pantoprazole Sodium 40 mg PO BID 08/21/17 [History] HYDROcodone/Acet 5/325 mg [Rector 5-325 mg] 1 tab PO Q6H PRN 5 Days #20 tab 08/25 [Rx] Polyethylene Glycol 3350 [MiraLAX] 17 gm PO DAILY #30 powd.pack 08/25/17 [Rx] Sennosides/Docusate Sodium [Senna Plus] 1 each PO BID #60 tablet 08/25/17 [Rx] Allergies/Adverse Reactions: 3 Allergy/AdvReac Type Severity Reaction Status Date / Time No Known Allergies Allergy Verified 08/21/17 12:34 Date of admission: 08/22/17 17:12 Primary care physician: Vic Kong, Consults: 08/23/17 13:07 Consult to Physician [CONS] Routine Consulting Provider: Juaquin Shah Reason for Consult: Acute on chronic compression fracture, h/o falls Time Notified: 13:07 Call Completed: Yes 08/25/17 09:01 Consult to Surgery [CONS] Routine Consulting Provider: Rhett Sotelo Reason for Consult: 81M, no known fmhx cancer, partial obstructing/ulcerated mid-rectal mass found on colonoscopy 08/24, pathology pending; touching base to have patient on surgery's radar. Patient currently does not want to stay in hospital- wants to follow-up outpatient if possible. Call Completed: Yes Discharging clinician: Daniel Wang Anticipated date of discharge: 08/25/17 - Constitutional Vitals: Temp Pulse Resp BP Pulse Ox 97.5 F L 84 16 131/70 95 08/25/17 10:52 08/25/17 10:52 08/25/17 10:52 08/25/17 10:52 08/25/17 10:52 General appearance: Present: cooperative, mild distress (L-spine pain ), A&O X 3 (hard of hearing), pleasant, underweight, answers questions appropriately - Head Head exam: Present: atraumatic, normocephalic - Eye Eye exam: Present: EOMI - ENT ENT exam: Present: mucous membranes moist - Neck Neck exam general surgery: Present: full ROM - Respiratory Respiratory exam: Present: CTAB. Absent: accessory muscle use - Cardiovascular Cardiovascular exam: Present: RRR, +S1, +S2. Absent: JVD - GI/Abdominal GI/Abdominal exam: Absent: diminished bowel sounds, distended, firm, guarding - Extremities Exam Extremities exam: Absent: calf tenderness, joint swelling - Neurological Exam Neurological exam: Present: no focal deficits - Psychiatric Psychiatric exam: Present: normal affect, normal mood (strongly desires to go home, but cooperative) - Skin Skin exam: Present: warm. Absent: cyanosis, erythema, rash - Patient Status Disposition: Home, Self-Care Condition: Fair Functional capacity at discharge: uses cane/walker Overall status at discharge: patient is progressing back to baseline - Discharge Instructions Follow Up With: Charlie Garcia MD [Partnered Physician] - (Your appointment has been webrequested. Our offices will call with an appointment time and date.) Vic Kong DO [Primary Care Provider] - 10/25/17 2:00 pm Rhett Sotelo MD [Partnered Physician] - 09/05/17 2:05 pm Sammy Ruth MD [Partnered Physician] - Additional Instructions: Soft diet - Diet and Activity Diet: advance to your usual diet - VTE Documentation of Mechanical Device: Intermittent pneumatic compression device <Nya Sandoval - Last Filed: 08/25/17 16:20> Orders not resulted at time of discharge: Pending orders 08/24/17 14:06 Surgical Pathology [PTH] Routine Date of Encounter: 08/25/17 - Discharge Diagnosis (1) GI bleed Status: Acute Qualifiers: GI bleed type/associated pathology: melena Qualified Code(s): K92.1 - Melena (2) Anemia Status: Acute Qualifiers: Anemia type: iron deficiency Iron deficiency anemia type: unspecified iron deficiency Qualified Code(s): D50.9 - Iron deficiency anemia, unspecified (3) Fall Status: Acute Qualifiers: Encounter type: initial encounter Qualified Code(s): W19.XXXA - Unspecified fall, initial encounter (4) Compression fracture Status: Acute (5) H/O: CVA (cerebrovascular accident) Status: Chronic (6) Arm laceration Status: Acute Qualifiers: Encounter type: initial encounter Laterality: right Qualified Code(s): S41.111A - Laceration without foreign body of right upper arm, initial encounter (7) Syncope Status: Acute Qualifiers: Syncope type: unspecified Qualified Code(s): R55 - Syncope and collapse (8) HTN (hypertension) Status: Chronic Qualifiers: Hypertension type: essential hypertension Qualified Code(s): I10 - Essential (primary) hypertension (9) HLD (hyperlipidemia) Status: Chronic Qualifiers: Hyperlipidemia type: pure hypercholesterolemia Qualified Code(s): E78.00 - Pure hypercholesterolemia, unspecified; E78.0 - Pure hypercholesterolemia (10) GERD (gastroesophageal reflux disease) Status: Chronic Qualifiers: Esophagitis presence: esophagitis presence not specified Qualified Code(s) : K21.9 - Gastro-esophageal reflux disease without esophagitis (11) DVT prophylaxis Status: Acute (12) Hypokalemia Status: Resolved (13) Irregular heart rhythm Status: Acute Hospital course: Mr. Scott is a 81 year old male - Time Spent with Patient Total time spent providing and/or coordinating discharge services: Date of admission: 08/22/17 17:12 Primary care physician: Vic Kong, Consults: 08/23/17 13:07 Consult to Physician [CONS] Routine Consulting Provider: Juaquin Sahh Reason for Consult: Acute on chronic compression fracture, h/o falls Time Notified: 13:07 Call Completed: Yes 08/25/17 09:01 Consult to Surgery [CONS] Routine Consulting Provider: hRett Sotelo Reason for Consult: 81M, no known fmhx cancer, partial obstructing/ulcerated mid-rectal mass found on colonoscopy 08/24, pathology pending; touching base to have patient on surgery's radar. Patient currently does not want to stay in hospital- wants to follow-up outpatient if possible. Call Completed: Yes - Constitutional Vitals: Temp Pulse Resp BP Pulse Ox 97.5 F L 84 16 131/70 95 08/25/17 10:52 08/25/17 10:52 08/25/17 10:52 08/25/17 10:52 08/25/17 10:52 - Attending Attestation I examined this patient and my medical decision-making was reviewed with the Resident Physician Dr. Bey. I agree with the documented findings, disposition and treatment plan as described except to the extent set forth below. Mr. 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 pt had a syncopal episode and fell on the floor. He was down on the floor for almost for 2 hrs. Pt was not able to provide me exact history and what happened before fall and how long he lost his consciousness. He denied any CP. Denied any abdominal pain. Feels better today. He did go for colonoscopy y/d which showed rectal mass. Biopsies were taken. CT of abd, chest showed rectal mass, several small freda rectal lymph nodes, possible metastasis disease. Gen: A, A, O x 3 Chest: Diminished BS b/l Heart: S1S2 + RRR a/p 1. Syncope - mostly orthostatic so far negative trop carotid doppler - Minimal plaque through out EEG - unremarkable had 2 D Echo recently - no need to repeat 2. Acute GI bleed / BRBPR NPO s/p EGD - non bleeding erosive gatstropathy d/c Plavix cont PPI, and Carafate 3. 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 Low back pain 4. Acute T12 vertebral fx Dr. Shah recommend out pt f/u Will arrange for home health
--- NOTE | 2017-08-25 15:46 | General Surgery Consult Note ---
Date of Encounter: 08/25/17 Time of Encounter: 15:00 Assessment and Plan (1) Rectal mass Current Visit: Yes Status: Acute CT of chest/abdomen/pelvis complete Pathology pending CEA 0.9 Patient reqests to follow-up as outpatient; discharging per hospitalist (2) Anemia Current Visit: Yes Status: Acute stable with Hgb 8.1 (8.6) Qualifiers: Anemia type: iron deficiency Iron deficiency anemia type: unspecified iron deficiency Qualified Code(s): D50.9 - Iron deficiency anemia, unspecified History of Present Illness Consult date: 08/25/17 Reason for consult: other (Rectal mass) Requesting physician: Daniel Wang History of present illness: Mr. Scott is an 81 year old male who initially presented to the hospital after a syncopal episode 08/10/17. His hgb was found to be 5.7 at that time. He was transfused 2 units of PRBC. The patient was admitted to the hospital and did undergo an EGD for evaluation of GI bleeding. The patient didn't complete his bowel prep at that time and further refused the colonoscopy. He requested to be discharged to home. The patient returned to the hospital for continued rectal bleeding and abdominal discomfort. He had a colonoscopy complete per Dr. Garcia with gastroenterology on 08/24/17. He was found to have a near obstructing rectal mass which was biopsied. Pathology is pending. Surgery was consulted for recommendations. The patient reports a history of rectal bleeding for approximately the last 6 months. He admits to unexplained weight loss but unsure of how much. He denies any constipation or diarrhea. His last bowel movement was this morning and he reports that it was normal. He admits to cramping abdominal pain on arrival to the hospital but states that this has resolved. He denies any nausea/vomiting. Denies any fevers/chills. He states that his appetite is normal at this time. He has never had a colonoscopy in the past. Past Med Surg Social Fam HX - Past Medical History Source: patient, old records reviewed, obtained from family Medical history: CVA (5-6 years ago), hyperlipidemia, hypertension Additional medical history: Prostate CA Psychiatric history: no psych history - Past Surgical History Surgical History: other (EGD 08/11/17; Colonoscopy 08/24/17) - Social History Smoking Status: Former smoker Packs per day: Pipe - Reports quitting in 1984 Smokeless Tobacco Status: No Alcohol use: none Drug use: none - Family History Father History Unknown: Yes Race: Family Member Ethnicity: Non- Living Status: Hx Family Cardiac Disorders: Yes Hx Family Respiratory Disorders: No Hx Family Neurologic Disorders: Yes Mother History Unknown: Yes Race: Family Member Ethnicity: Non- Living Status: Brother Race: Family Member Ethnicity: Non- Living Status: Still Living Hx Family Medical Disorders: No Sister History Unknown: Yes Race: Family Member Ethnicity: Non- Living Status: Medications and Allergies Atorvastatin [Lipitor] 40 mg PO HS 08/10/17 [History] Multivit-Min/FA/Lycopen/Lutein [A Thru Z Select Men 50+ Tablet] 1 tab PO DAILY 08/10/17 [History] Docusate [Colace] 100 mg PO BID #20 capsule 08/13/17 [Rx] Pantoprazole Sodium 40 mg PO BID 08/21/17 [History] HYDROcodone/Acet 5/325 mg [[place] 5-325 mg] 1 tab PO Q6H PRN 5 Days #20 tab 08/25 [Rx] Polyethylene Glycol 3350 [MiraLAX] 17 gm PO DAILY #30 powd.pack 08/25/17 [Rx] Sennosides/Docusate Sodium [Senna Plus] 1 each PO BID #60 tablet 08/25/17 [Rx] 3 Allergy/AdvReac Type Severity Reaction Status Date / Time No Known Allergies Allergy Verified 08/21/17 12:34 Review of Systems All systems PM: reviewed and no additional remarkable complaints except as stated (in the HPI) All systems PM: The remainder of the systems were reviewed and are negative General Surgery Exam Initial Vital Signs Temp Pulse Resp BP Pulse Ox 98.5 F 120 15 134/84 94 08/21/17 10:18 08/21/17 10:18 08/21/17 10:18 08/21/17 10:18 08/21/17 10:18 - General physical appearance well developed, well nourished, no distress, no pain - Eyes normal ocular movement - ENT normal mucosa, atraumatic, normocephalic - Neck trachea midline - Respiratory normal respiratory effort, clear to auscultation - Cardiovascular Cardiovascular exam: Present: RRR, 15, 16 - Abdomen Abdomen general surgery: Present: bowel sounds present, soft, non tender - Integumentary Integumentary general surgery: Present: warm and dry - Neurologic Present: CN 2-12 grossly intact - Psychiatric Psychiatric general surgery: Present: appropriate, oriented to person, oriented to place, oriented to time, speech is normal, memory intact Exam Initial Vital Signs Temp Pulse Resp BP Pulse Ox 98.5 F 120 15 134/84 94 08/21/17 10:18 08/21/17 10:18 08/21/17 10:18 08/21/17 10:18 08/21/17 10:18 Results - Labs 08/25/17 06:44 08/24/17 06:10 Abnormal lab results RBC 3.60 M/mcL (4.19-5.50) L 08/25/17 06:44 Hgb 8.1 g/dL (12.9-16.9) L 08/25/17 06:44 Hct 27.0 % (37.5-50.1) L 08/25/17 06:44 MCV 75.0 fL (83.0-100.0) L 08/25/17 06:44 MCH 22.5 pg (28.0-33.3) L 08/25/17 06:44 MCHC 30.0 g/dL (31.6-35.5) L 08/25/17 06:44 RDW 20.5 % (11.5-14.5) H 08/25/17 06:44 MPV 9.2 fL (9.4-12.4) L 08/25/17 06:44 POC Glucose 185 mg/dL (70-99) H 08/24/17 23:59 Hemoglobin A1c 6.1 % (-5.6) H 08/22/17 00:35 Calcium 8.5 mg/dL (8.6-10.3) L 08/24/17 06:10 Iron < 10 mcg/dL (65-175) L 08/21/17 16:43 Serum Total Protein 5.6 g/dL (6.4-8.9) L 08/24/17 06:10 Albumin 2.8 g/dL (3.5-5.7) L 08/24/17 06:10 Albumin/Globulin Ratio 1.0 (1.1-2.2) L 08/24/17 06:10 Urine Protein 30 mg/dL (Neg-Trace) H 08/21/17 11:15 Urine Ketones Trace mg/dL (Negative) H 08/21/17 11:15 Stool Occult Blood Positive (Negative) A 08/22/17 14:04 All other labs normal. - Imaging Additional studies: Head CT 08/21/17 10:30 IMPRESSION: No acute intracranial hemorrhage or mass effect. D/ / Kalpesh Marshall MD / Kalpesh Marshall MD Interpreting Provider: Kalpesh Marshall MD Cervical Spine CT 08/21/17 10:39 IMPRESSION: No acute abnormality of the cervical spine. Degenerative change as above. Carotid calcified atheromatous plaque. D/ / Adi Leos / Adi Leos Interpreting Provider: Adi Leos Chest X-Ray 08/21/17 11:46 IMPRESSION: No acute process. D/ / Jesse Tee MD / Jesse Tee MD Interpreting Provider: Jesse Tee MD Lumbar Spine X-Ray 08/22/17 10:16 IMPRESSION: 1. Moderate T12 compression fracture, which is more compressed from previous examinations, and is therefore at least in part acute. 2. Mild T11 inferior endplate fracture, which may also be acute. 3. Stable appearance of chronic L2 and L4 compression fractures. RECOMMENDATION: Consider further evaluation with MRI, as the patient may be a candidate for lower thoracic vertebroplasties with interventional radiology. D/ / Andrea Maloney MD / Andrea Maloney MD Interpreting Provider: Andrea Maloney MD Lumbar Spine MRI 08/23/17 14:51 IMPRESSION: Acute superior endplate fracture of T12 resulting in 50% loss of vertebral body height and moderate focal narrowing of the thecal sac. 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 D/ / Kt Dukes MD / Kt Dukes MD Interpreting Provider: Kt Dukes MD Abdomen/Pelvis CT 08/25/17 12:45 IMPRESSION: There is a rectal mass that is serving as a lead point with an intussusception at this level, best seen on and around axial image 185. No proximal obstruction of the sigmoid colon however. This may be transient. There are several small perirectal lymph nodes, the largest of which measuring 6 mm in size. Cannot exclude locoregional lymph node metastatic disease. There are small cystic lesions identified within the liver which have been present dating back to 2008. No definite distant metastatic disease is identified. Diffuse atherosclerotic disease with coronary artery involvement. Acute to subacute T12 compression fracture, overall unchanged in appearance from 2 days earlier with some moderate canal stenosis related to retropulsion of the posterior margin. Mild smooth interlobular septal thickening seen in the lungs which can be seen with mild pulmonary edema. Mild emphysematous changes are seen in the lungs with areas of air trapping. Atelectasis. Multiple chronic appearing compression fractures in the thoracic and lumbar spine. D/ / 08/25/2017 14:02:07 Abdelrahman Workman MD / [facility] Interpreting Provider: Abdelrahman Workman MD Chest CT 08/25/17 12:45 IMPRESSION: There is a rectal mass that is serving as a lead point with an intussusception at this level, best seen on and around axial image 185. No proximal obstruction of the sigmoid colon however. This may be transient. There are several small perirectal lymph nodes, the largest of which measuring 6 mm in size. Cannot exclude locoregional lymph node metastatic disease. There are small cystic lesions identified within the liver which have been present dating back to 2008. No definite distant metastatic disease is identified. Diffuse atherosclerotic disease with coronary artery involvement. Acute to subacute T12 compression fracture, overall unchanged in appearance from 2 days earlier with some moderate canal stenosis related to retropulsion of the posterior margin. Mild smooth interlobular septal thickening seen in the lungs which can be seen with mild pulmonary edema. Mild emphysematous changes are seen in the lungs with areas of air trapping. Atelectasis. Multiple chronic appearing compression fractures in the thoracic and lumbar spine. D/ / 08/25/2017 14:02:07 Abdelrahman Workman MD / jhonathan Interpreting Provider: Abdelrahman Workman MD Consult Discharge Plan - Plan Additional Instructions: Soft diet Referrals: Charlie Garcia MD [Partnered Physician] - (Your appointment has been webrequested. Our offices will call with an appointment time and date.) Vic Kong DO [Primary Care Provider] - 10/25/17 2:00 pm Rhett Sotelo MD [Partnered Physician] - 09/05/17 2:05 pm - Attending Attestation For this encounter, I have reviewed the TRANSPORTATION MAINTENANCE OPERATOR or PA documentation, treatment plan, and medical decision making; and I have had face to face time with this patient.
--- NOTE | 2017-08-25 16:31 | Physician Discharge Referral ---
Home Health/Hosp Referral Info Transfer to: Home Health Provider in Charge Post Discharge: PCP - Diagnosis (1) GI bleed Status: Acute (2) Anemia Status: Acute (3) Fall Status: Acute (4) Compression fracture Status: Acute (5) H/O: CVA (cerebrovascular accident) Status: Chronic (6) Arm laceration Status: Acute (7) Syncope Status: Acute (8) HTN (hypertension) Status: Chronic (9) HLD (hyperlipidemia) Status: Chronic (10) GERD (gastroesophageal reflux disease) Status: Chronic (11) DVT prophylaxis Status: Acute (12) Hypokalemia Status: Resolved (13) Irregular heart rhythm Status: Acute - Respiratory Orders Smoking Cessation: Smoking cessation has been advised. For more information, call the [place] Tobacco Quit Line at 4-301-RBWA-NOW. - Transfer Medications Prescriptions: HYDROcodone/Acet 5/325 mg [[place] 5-325 mg] 1 tab PO Q6H PRN 5 Days #20 tab PRN Reason: Moderate Pain Polyethylene Glycol 3350 [MiraLAX] 17 gm PO DAILY #30 powd.pack Sennosides/Docusate Sodium [Senna Plus] 1 each PO BID #60 tablet Home Medications: Atorvastatin [Lipitor] 40 mg PO HS 08/10/17 [History] Multivit-Min/FA/Lycopen/Lutein [A Thru Z Select Men 50+ Tablet] 1 tab PO DAILY 08/10/17 [History] Docusate [Colace] 100 mg PO BID #20 capsule 08/13/17 [Rx] Pantoprazole Sodium 40 mg PO BID 08/21/17 [History] HYDROcodone/Acet 5/325 mg [[place] 5-325 mg] 1 tab PO Q6H PRN 5 Days #20 tab 08/25 [Rx] Polyethylene Glycol 3350 [MiraLAX] 17 gm PO DAILY #30 powd.pack 08/25/17 [Rx] Sennosides/Docusate Sodium [Senna Plus] 1 each PO BID #60 tablet 08/25/17 [Rx] Allergies/Adverse Reactions: 3 Allergy/AdvReac Type Severity Reaction Status Date / Time No Known Allergies Allergy Verified 08/21/17 12:34 Certification: Further, I certify that my clinical findings support that this patient is homebound (i.e. absences from home require considerable and taxing effort and are for medical reasons or alevism services or infrequently or short duration when for other reasons) because: Homebound Reason: Patient requires assistance of a person or device to safely leave home Attestation: My signature below is to certify that this patient is under my care and that I, or nurse practitioner, or a physician's project construction assistant manager working with me, has a face-to -face encounter with this patient.
== END 2017-08-25 17:29 | disposition home or self-care (01) | DRG 375 ==
LOC: EMEROO 10:12 → 3BNU 10:12
PROVIDERS: ADMIT Family Medicine; ATTEND Family Medicine
PROC: ENDOCBX (2017-08-24 13:45)

== ENCOUNTER 2017-10-25 06:18 | Inpatient (IN) ==
--- NOTE | 2017-10-24 14:37 | Anesthesia Evaluation PreOp ---
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 History: CVA (5-6 yrs ago, RLE/RUE deficit), Other (syncope) Other Medical History: Denies Any Significant HX, Other (colon cancer) Anesthesia History: No Prior Anesthetic Complications, Past Anesthesia (EGD/ Colonoscopy) Alcohol Use: none Drug use: none Medications and Allergies Atorvastatin [Lipitor] 40 mg PO HS 08/10/17 [History] Multivit-Min/FA/Lycopen/Lutein [A Thru Z Select Men 50+ Tablet] 1 tab PO DAILY 08/10/17 [History] Pantoprazole Sodium 40 mg PO BID 08/21/17 [History] Sennosides/Docusate Sodium [Senna Plus] 1 each PO BID #60 tablet 08/25/17 [Rx] OxyCODONE/APAP 5/325 [Percocet 5/325 MG] 1 - 2 tab PO Q6HR PRN 14 Days #90 tablet 09/06/17 [Rx] 3 Allergy/AdvReac Type Severity Reaction Status Date / Time No Known Allergies Allergy Verified 08/21/17 12:34 - Meds/Allergy Pre-op Review Medications Reviewed: Yes Allergies Reviewed: Yes Beta Blockers on Current Med List: No Anesthesia Results - Labs Laboratory Tests 08/29/17 09/22/17 09/23/17 15:19 11:58 15:20 Hgb 9.5 L Hct 31.9 L Plt Count 349 Sodium 136 Potassium 4.0 BUN 23 Creatinine 0.93 - Imaging EKG: report reviewed (SINUS TACHYCARDIA WITH FREQUENT VENTRICULAR PREMATURE COMPLEXES WITH OCCASIONAL SUPRAVENTRICULAR PREMATURE COMPLEXES) Anesthesia Exam Selected Entries 10/25/17 06:44 Temperature 97.8 F Pulse Rate 110 Respiratory Rate 18 Blood Pressure 112/57 O2 Sat by Pulse Oximetry 100 Weight: 54kg NPO (# of Hours): >>8 - HEENT Pupil (Motor): EOMI Mallampati: II Teeth: Edentulous Oral Opening: Greater than 3 - COMPUTER SYSTEMS SOFTWARE ARCHITECT LOC: Oriented COMPUTER SYSTEMS SOFTWARE ARCHITECT Motor: Normal RUE, Normal LUE, Normal RLE, Normal LLE, Normal Face COMPUTER SYSTEMS SOFTWARE ARCHITECT Sensory: Normal: RUE, LUE, RLE, LLE, Face - Cardiac Rhythm: Regular Murmur: None - Pulmonary Breath Sounds: bilateral Clear Respiratory Effort: Symmetrical Anesthesia Assess/Plan ASA Score: 3 Modified Esteban Scale for Level of Consciousness: Cooperative, oriented, and tranquil Anesthetic Plan: General Monitoring Plan: Standard Monitors Recovery Plan: PACU (agrees to GA)
[2017-10-25] MEDS ORDERED: cefOXitin 2,000 MG in Water for inj. (sterile) 20 ML 20 ML IVP ONE (06:34)
[2017-10-25] MEDS ORDERED: Ringers Solution, Lactated 1,000 ML IVC SCH (06:45)
--- NOTE | 2017-10-25 07:27 | General Surg History&Physical ---
Date of Encounter: 10/25/17 Time of Encounter: 07:24 Assessment and Plan (1) Rectal cancer Current Visit: Yes Status: Acute The assessment and plan as outlined above was discussed with the patient and/or family members who expressed understanding and agreement. All questions were answered. Patient will undergo a low anterior resection today. Risks and benefits known to patient and family. Will be admitted as an inpatient. History of Present Illness Chief complaint: Rectal cancer HPI: Mr. Scott is a 81 year old male with a past medical history significant for hypercholesterolemia, prostate cancer s/p brachytherapy 2006, GERD, and HTN who initially presented to [facility] several months ago with weakness and rectal bleeding and anemia. 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 He presents to the OR for a low anterior resection preceded by ureteral stent placemets. Past Med Surg Social Fam HX - Past Medical History Medical history: CVA, hyperlipidemia, hypertension Additional medical history: Prostate CA Psychiatric history: no psych history - Past Surgical History Surgical History: other Additional surgical history: EGD/Colonoscopy 08/24/17 - Social History Smoking Status: Never smoker Smokeless Tobacco Status: No Alcohol use: none Drug use: none - Family History Father Family Member Ethnicity: Non- Living Status: Hx Family Cardiac Disorders: Yes Hx Family Respiratory Disorders: No Hx Family Neurologic Disorders: Yes Mother Family Member Ethnicity: Non- Living Status: Brother Family Member Ethnicity: Non- Living Status: Still Living Sister Family Member Ethnicity: Non- Living Status: Medications and Allergies Atorvastatin [Lipitor] 40 mg PO HS 08/10/17 [History] Pantoprazole Sodium 40 mg PO BID 08/21/17 [History] 3 Allergy/AdvReac Type Severity Reaction Status Date / Time No Known Allergies Allergy Verified 08/21/17 12:34 Review of Systems All systems PM: reviewed and no additional remarkable complaints except as stated All systems PM: The remainder of the systems were reviewed and are negative General Surgery Exam Initial Vital Signs Temp Pulse Resp BP Pulse Ox 97.8 F 110 18 112/57 100 10/25/17 06:33 10/25/17 06:33 10/25/17 06:33 10/25/17 06:33 10/25/17 06:33 - Eyes PERRL, normal ocular movement - Respiratory normal expansion, normal respiratory effort - Abdomen Abdomen general surgery: Present: bowel sounds present, soft, non tender - Neurologic Present: CN 2-12 grossly intact - Musculoskeletal Present: other (No clubbing cyanosis or edema) Results - Labs All other labs normal. - Imaging CT scan - abdomen: report reviewed, image reviewed (reviewed with patient. Noted large bulky rectal mass.)
[2017-10-25] MEDS ORDERED: Bupivacaine/EPI 1:200k 0.5%PF 30 ML VIAL ONE (07:28)
[2017-10-25] MEDS ORDERED: CefOXitin 1,000 MG VIAL ONE (07:29)
--- NOTE | 2017-10-25 07:30 | Urology History & Physical ---
Date of Encounter: 10/25/17 Time of Encounter: 07:29 Assessment and Plan (1) Rectal cancer Current Visit: Yes Status: Acute Patient consented for cystoscopy with placement of bilateral temporary ureteral stents. He understands the indication for the procedure and potential risks. History of Present Illness Chief complaint: colon mass HPI: Mr. Scott is a 81 year old male history of brachytherapy for prostate cancer 10 years ago. Here to undergo a low anterior resection and needs temporary placement of ureteral stents Past Med Surg Social Fam HX - Past Medical History Medical history: CVA, hyperlipidemia, hypertension Additional medical history: Prostate CA Psychiatric history: no psych history - Past Surgical History Surgical History: other Additional surgical history: EGD/Colonoscopy 08/24/17 - Social History Smoking Status: Never smoker Smokeless Tobacco Status: No Alcohol use: none Drug use: none - Family History Father Family Member Ethnicity: Non- Living Status: Hx Family Cardiac Disorders: Yes Hx Family Respiratory Disorders: No Hx Family Neurologic Disorders: Yes Mother Family Member Ethnicity: Non- Living Status: Brother Family Member Ethnicity: Non- Living Status: Still Living Sister Family Member Ethnicity: Non- Living Status: Medications and Allergies Atorvastatin [Lipitor] 40 mg PO HS 08/10/17 [History] Pantoprazole Sodium 40 mg PO BID 08/21/17 [History] 3 Allergy/AdvReac Type Severity Reaction Status Date / Time No Known Allergies Allergy Verified 08/21/17 12:34 Review of Systems - Cardiovascular no chest pain Exam Initial Vital Signs Temp Pulse Resp BP Pulse Ox 97.8 F 110 18 112/57 100 10/25/17 06:33 10/25/17 06:33 10/25/17 06:33 10/25/17 06:33 10/25/17 06:33 - General physical appearance Present: no distress Urology Results - Labs All other labs normal.
[2017-10-25] MEDS ORDERED: Lidocaine -MPF 2% 2 ML VIAL ONE (07:32)
[2017-10-25] MEDS ORDERED: *HR* FentaNYL (PF) 100 MCG/2 ML VIAL ONE (07:32)
[2017-10-25] MEDS ORDERED: Ondansetron 4 MG/2 ML VIAL ONE (07:32)
[2017-10-25] MEDS ORDERED: Dexamethasone 4 MG/ML VIAL ONE (07:32)
[2017-10-25] MEDS ORDERED: *HR* Rocuronium Bromide 50 MG/5 ML VIAL ONE ×2 (07:32→09:48)
[2017-10-25] MEDS ORDERED: *HR* Propofol 200 MG/20 ML VIAL IVP ONE (07:32)
[2017-10-25] MEDS ORDERED: Lidocaine -MPF 4% 5 ML AMPUL ONE (07:32)
[2017-10-25] MEDS ORDERED: *HR* Remifentanil 2 MG VIAL IVP ONE (07:57)
[2017-10-25] MEDS ORDERED: *HR* PHENYLEPHRINE 1,000 MCG/10 ML SYRINGE IVP ONE (08:44)
[2017-10-25] MEDS ORDERED: EPHEDrine 50 MG/ML VIAL ONE (08:52)
[2017-10-25] MEDS ORDERED: *HR* Promethazine 25 MG/ML VIAL IVP PRN (08:55)
[2017-10-25] MEDS ORDERED: Ondansetron 4 MG/2 ML VIAL IVP ONE (08:55)
[2017-10-25] MEDS ORDERED: *HR* Labetalol 20 MG/4 ML SYRINGE IVP PRN (08:55)
[2017-10-25] MEDS ORDERED: *HR* OxyCODONE Immed Rel 5 MG TABLET PO PRN (08:55)
[2017-10-25] MEDS ORDERED: Ketorolac 30 MG/ML VIAL ONE (10:30)
[2017-10-25] MEDS ORDERED: Neostigmine Methylsulfate 3 MG/3 ML SYRINGE ONE (10:34)
--- NOTE | 2017-10-25 10:43 | Operative Note ---
Date of procedure: 10/25/17 Pre-op diagnosis: History of prostate cancer. Radiation. Rectal tumor Post-op diagnosis: same Procedure: Cystoscopy with placement of bilateral temporary ureteral stents Anesthesia: GETA Surgeon: Ariel Franco Was there an certified pharmacist assistant present: No Estimated blood loss (cc): 0 Specimen: None Condition: stable Disposition: PACU Procedure in Detail: I was asked by Dr. Sotelo to place temporary ureteral stents to prevent ureteral injury and allow for ureteral identification. There was concern because of his history of radiation/brachytherapy for prostate cancer PROCEDURE IN DETAIL: Patient was taken back to the operating room, positioned supine on the operating table. Anesthesia was applied without complication. They were moved into dorsal lithotomy. Careful attention was maintained to cushion all pressure points for patient's safety. They were prepped and draped in sterile fashion. Time-out was performed with the proper patient and procedure. A 21-Prydeinig rigid cystoscope was inserted into the bladder without difficulty. Systematic examination of bladder revealed no major abnormalities. Mild trabeculations were seen. Large median lobe. No major radiation changes. The left ureteral orifice was cannulated using a 5-Prydeinig ureteral Catheter and it passed up without resistance. I was able to perform the same maneuver on the patient's right side. I removed the rigid cystoscope and placed a Sepulveda catheter. The ends of the 5-Prydeinig ureteral catheter were threaded through the attachment device and secured in place with clips. No complications were noted..
--- NOTE | 2017-10-25 10:51 | Operative Note ---
Date of procedure: 10/25/17 Pre-op diagnosis: possible hx of prostate cancer and radiation. rectal mass Post-op diagnosis: same Procedure: cystoscopy with bilateral temporary ureteral stent placement Anesthesia: ASHWIN Surgeon: Ariel Franco Was there an delinquent tax collector assistant present: No Estimated blood loss (cc): 0 Specimen: none Condition: stable Disposition: PACU
[2017-10-25] MEDS ORDERED: *HR* Metoprolol 5 MG/5 ML VIAL IVP ONE (11:18)
--- NOTE | 2017-10-25 11:30 | Operative Note ---
Date of procedure: 10/25/17 Pre-op diagnosis: Recto-sigmoid cancer Post-op diagnosis: same Procedure: Exploratory celiotomy/low anterior resection Implants: Braulio drain 19FR x 1 Anesthesia: GETA Surgeon: Rhett Sotelo Was there an licensed sales assistant present: Yes Mh Teacher: Ena Pearl Mh Teacher Other: CARLITOS Pickett Estimated blood loss (cc): 50 Specimen: rectosigmoid, anastamotic rings Condition: stable Disposition: PACU Procedure in Detail: Date of surgery: 10/25/17 The patient was already identify properly with a timeout performed prior to this abdominal procedure. He had a cystoscopy performed first with ureteral stent placement which is dictated separately. The patient was repositioned in the low lithotomy position and was already intubated. The patient's abdomen was prepped and draped in normal sterile fashion as well as the perianal region and a 10 blade scalpel was used to make an incision approximately several centimeters from above the umbilicus extending inferiorly down to the suprapubic region. Bovie cauterization was used to dissected the subcutis tissue and fascia into the abdomen was entered. A Bookwalter was brought onto the operative field and used to retract the fascia laterally. First the sigmoid Colon was dissected off its lateral sidewall attachments with Bovie cauterization extending superiorly. Once this was performed the peritoneum to the right and left side of the rectosigmoid region was scored with Bovie cauterization. This allowed for eventual dissection laterally with eventual visualization of the right and left ureters which were spared. There were some adhesions on the left side which may have been related to prior radiation therapy, and were taken down with Bovie cauterization. A segment of the mesentery at the level of the sigmoid colon was noted and dissected with a Antonia clamp to iolate the sigmoid colon for eventual transection which was performed with a SAVI stapler. The mesentery down to the presacral space was transected with a handheld LigaSure. This allowed for posterior dissection of the rectosigmoid junction and rectum with a combination of blunt dissection and Bovie cauterization. Once the lateral sidewall attachments of the rectum were transected this allowed for retraction of the rectum and identification of the mass effect which was easily palpable. Dissection was carried down further down to the pelvic floor and a contour stapler was placed around the mid rectum and was used to transect the rectum below the level of the palpable rectal cancer. The specimen was then submitted to pathology and the pelvis was irrigated with normal saline solution. The decision was then made to prep the distal stump for eventual anastomosis. The descending colonic stump was examined and appeared to show no signs of ischemia. The epiploica around the stump were dissected with Bovie cauterization and the staple line was then transected with Bovie cauterization. A 2-0 Prolene was used to create a pursestring and sizers were placed within the lumen to determine the appropriate size with stabilizing. A 29-Belizean EEA stapler was brought onto the operative field. The anvil was placed through the lumen and the suture was then tied without difficulty. The EEA stapler was then placed from below with the male and extruded just above the rectal stump staple line. The anvil was connected to the male and and the anvil was then retracted to the hub. The staple line was then completed without difficulty and examination showed 2 intact anastomotic rings. The stump was tested for leak by placing normal saline solution within the pelvis above the staple line and insufflating the rectum with air. There was evidence of bubbling which demonstrated an area of a small hole posteriorly. This was closed by using interrupted 3-0 silk sutures. The staple line was tested for patency once again as stated above with no evidence of a leak. The decision was then made to conclude this surgical procedure by placing a 19-Belizean Braulio drain within the pelvis and securing it with a 2-0 nylon suture. The pelvis was copiously irrigated with normal saline solution containing Mefoxin. Seprafilm was placed within the abdomen and the midline incision was closed in a normal fashion with looped #1 PDS sutures 2. The subcutaneous tissue was reapproximated with 2-0 Vicryl sutures and the epidermal and dermal layers were reapproximated with abdiel. Needle, sponge, and ischemic counts were correct 2 and the incision was covered with 4 x 4's. The patient was aroused from IV sedation, extubated in the operating room without complication, and transported to the recovery room in stable condition.
[2017-10-25] MEDS: *HR* HYDROmorphone (PF) 1 MG/ML SYRINGE IVP PRN ×4 (11:42→12:12)
--- NOTE | 2017-10-25 12:32 | Anesthesia Evaluation Post Op ---
Date of Encounter: 10/25/17 Time of Encounter: 12:31 - Vital Signs Vital Signs: Vital Signs/O2 Sat, Most Current Temp Pulse Resp BP Pulse Ox 98.2 F 87 14 153/79 99 10/25/17 12:06 10/25/17 12:26 10/25/17 12:26 10/25/17 12:26 10/25/17 12:26 - Lungs Lungs: Clear Ascult./Percussion - Airway Airway: Non-obstructed - Cardiovascular Regular Rate - Mental Status Mental Status: Asleep with brisk response to light stimulation - Nausea Vomiting Nausea Vomiting: Not Present - Hydration Hydration: NPO, Sepulveda catheter - Discharge PostOp Status: Transfer Patient to floor
[2017-10-25] MEDS ORDERED: Ondansetron 4 MG/2 ML VIAL IVP PRN (12:57)
[2017-10-25] MEDS ORDERED: Naloxone 0.4 MG/ML INJ IVP PRN (12:57)
[2017-10-25] MEDS ORDERED: OXYCODONE Oral CONC 10 MG/0.5 ML ORAL.SYG SL PRN (12:57)
[2017-10-25] MEDS ORDERED: *HR* LORazepam 2 MG/ML VIAL IVP PRN (12:57)
[2017-10-25 13:36] LABS: Basophils % 0.1 %; Immature Granulocytes % 0.4 % (0-4); Lymphocytes % 6.6 %; Mean Corpuscular HGB Conc 32.4 g/dL (31.6-35.5); Mean Corpuscular Hemoglobin 27.4 pg (28.0-33.3); Mean Corpuscular Volume 84.6 fL (83.0-100.0); Mean Platelet Volume 8.8 fL (9.4-12.4); Monocytes # 0.3 K/mcL (0.0-1.3); Monocytes % 3.1 %; Neutrophils # 8.8 K/mcL (1.6-8.9); Platelet Count 226 K/mcL (140-400); Red Blood Count 4.02 M/mcL (4.19-5.50); Red Cell Distribution Width 23.6 % (11.5-14.5); Segmented Neutrophils % 89.8 %
[2017-10-25 13:39] LABS: Lymphocytes # 0.7 K/mcL (0.6-4.6)
[2017-10-25 13:54] LABS: Anisocytosis 2+ (Not Present); Microcytosis Present (Not Present); Poikilocytosis 1+ (Not Present)
[2017-10-25 13:55] LABS: Platelet Estimate Normal (Normal)
[2017-10-25] MEDS: MORPHINE SUL Oral CONC 10 MG/0.5 ML ORAL.SYG SL PRN (14:01)
[2017-10-25] MEDS: 0.9 % Sodium Chloride 1,000 ML IVC SCH (14:13)
[2017-10-25] MEDS: cefOXitin 1,000 MG in Water for inj. (sterile) 20 ML 10 ML IVP SCH (16:28)
[2017-10-25 20:56] LABS: Hematocrit 29.7 % (37.5-50.1); Hemoglobin 9.9 g/dL (12.9-16.9); Immature Granulocytes % 0.2 % (0-4); Lymphocytes # 0.8 K/mcL (0.6-4.6); Lymphocytes % 10.2 %; Mean Corpuscular HGB Conc 33.3 g/dL (31.6-35.5); Mean Corpuscular Hemoglobin 27.7 pg (28.0-33.3); Mean Platelet Volume 8.9 fL (9.4-12.4); Monocytes # 0.3 K/mcL (0.0-1.3); Monocytes % 3.1 %; Platelet Count 221 K/mcL (140-400); Red Blood Count 3.58 M/mcL (4.19-5.50); Red Cell Distribution Width 23.5 % (11.5-14.5); Segmented Neutrophils % 86.5 %
[2017-10-25 21:21] LABS: Anisocytosis 2+ (Not Present); Platelet Estimate Normal (Normal)
[2017-10-25 21:22] LABS: Hypochromasia Present (Not Present)
[2017-10-26] MEDS: 0.9 % Sodium Chloride 1,000 ML IVC SCH ×2 (02:11→14:40)
[2017-10-26] MEDS: cefOXitin 1,000 MG in Water for inj. (sterile) 20 ML 10 ML IVP SCH ×2 (02:11→07:49)
[2017-10-26] MEDS: MORPHINE SUL Oral CONC 10 MG/0.5 ML ORAL.SYG SL PRN ×4 (02:12→17:04)
[2017-10-26 07:30] LABS: BUN/Creatinine Ratio 23 (6-26); Blood Urea Nitrogen 19 mg/dL (8-23); Calcium 8.6 mg/dL (8.6-10.3); Carbon Dioxide 23 mEq/L (23-29); Chloride 107 mEq/L (98-107); Glucose 137 mg/dL (70-105); Magnesium 1.9 mg/dL (1.6-2.6); Osmolality,Calculated 286 (280-300); Phosphorous 3.9 mg/dL (2.7-4.5); Potassium 4.7 mEq/L (3.5-5.1); Sodium 136 mEq/L (136-145); eGFR For Non-African Americans > 60 (> 60)
[2017-10-26] MEDS: Pantoprazole 40 MG VIAL IVP SCH (07:50)
--- NOTE | 2017-10-26 07:56 | General Surgery Progress Note ---
<Karsten Johnson - Last Filed: 10/26/17 08:26> Date of Encounter: 10/26/17 Time of Encounter: 07:45 - Assessment and Plan (1) Status post colon resection Current Visit: Yes Status: Acute Await return of bowel function, follow with CBC and BMP, out of bed and ambulation, will consider retaining Sepulveda catheter for accurate I/Os, or consider removing if patient has increased ambulation Subjective Patient reports: still having pain (Severe pain in the abdomen with movement of the extremities), no bowel movement, afebrile Narrative: Patient is post-op day 1 for a sigmoidectomy for suspected colon carcinoma. Patient states that he is still having severe pain with any movement of the extremities localized to the abdomen, specifically at the incision site. He denies any flatus or bowel movements. Objective Vital Signs - Last 8 Hours Temp Pulse Resp BP Pulse Ox 10/26/17 06:31 97.9 F 109 16 161/78 93 10/26/17 03:48 98.0 F 103 20 136/72 94 10/26/17 00:02 97.9 F 105 18 143/73 94 Intake and Output 10/25/17 10/25/17 10/26/17 15:59 23:59 07:59 Intake Total 1010 / 1010 Output Total 300 / 300 995 / 995 Balance -300 / -300 Intake: IV Fluids 1010 / 1010 0.9 % Sodium Chloride 1,000 ML 1000 / 1000 @ 80 mls/hr IVC .[id number] [facility] Rx #:[id number] Mefoxin 1,000 MG In Water for inj. (sterile) 10 ML @ 300 mls/ hr IVP Q8HR [facility] Rx#:[id number] Output: Urine 250 / 250 Estimated Blood Loss 50 / 50 Right Nephrostomy 100 / 100 Urine Amount (Catheter) 90 / 90 Catheter 650 / 650 Wound Drainage 60 / 60 95 / 95 Right Abdomen 95 / 95 Other: Blood Glucose* 151 149 - General physical appearance moderate distress, severe pain - Respiratory clear to auscultation - Cardiovascular Cardiovascular exam: Present: tachycardia, regular rhythm - Abdomen Abdomen: Present: bowel sounds present, soft, tender, guarding, surgical scars Abdominal Tenderness: diffusely Additional Comments: Bowel sounds only heard in RUQ - Labs 10/25/17 20:33 10/26/17 06:37 Diabetes panel 10/26/17 Range/Units 06:37 Sodium 136 (136-145) mEq/L Potassium 4.7 (3.5-5.1) mEq/L Chloride 107 (98-107) mEq/L Carbon Dioxide 23 (23-29) mEq/L BUN 19 (8-23) mg/dL Creatinine 0.84 (0.70-1.30) mg/dL Glucose 137 H (70-105) mg/dL Calcium 8.6 (8.6-10.3) mg/dL Calcium panel 10/26/17 Range/Units 06:37 Calcium 8.6 (8.6-10.3) mg/dL Phosphorus 3.9 (2.7-4.5) mg/dL Pituitary panel 10/26/17 Range/Units 06:37 Sodium 136 (136-145) mEq/L Potassium 4.7 (3.5-5.1) mEq/L Chloride 107 (98-107) mEq/L Carbon Dioxide 23 (23-29) mEq/L BUN 19 (8-23) mg/dL Creatinine 0.84 (0.70-1.30) mg/dL Glucose 137 H (70-105) mg/dL Calcium 8.6 (8.6-10.3) mg/dL Adrenal panel 10/26/17 Range/Units 06:37 Sodium 136 (136-145) mEq/L Potassium 4.7 (3.5-5.1) mEq/L Chloride 107 (98-107) mEq/L Carbon Dioxide 23 (23-29) mEq/L BUN 19 (8-23) mg/dL Creatinine 0.84 (0.70-1.30) mg/dL Glucose 137 H (70-105) mg/dL Calcium 8.6 (8.6-10.3) mg/dL - VTE Documentation of Mechanical Device: Intermittent pneumatic compression device Consult Discharge Plan - Plan Referrals: Vic Kong DO [Primary Care Provider] - Rhett Sotelo MD [Partnered Physician] - <Rhett Sotelo - Last Filed: 10/27/17 12:37> Date of Encounter: 10/26/17 - Assessment and Plan (1) Rectal cancer Current Visit: Yes Status: Acute Objective Vital Signs - Last 8 Hours Temp Pulse Resp BP Pulse Ox 10/27/17 11:22 98.3 F 89 18 136/66 94 10/27/17 06:37 98.0 F 83 14 125/64 93 Intake and Output 10/26/17 10/27/17 10/27/17 23:59 07:59 15:59 Intake Total 100 / 100 1130 / 1130 100 / 100 Output Total 25 / 25 840 / 840 300 / 300 Balance 75 / 75 290 / 290 -200 / -200 Intake: IV Fluids 100 / 100 1100 / 1100 100 / 100 0.9 % Sodium Chloride 1,000 ML 1000 / 1000 @ 80 mls/hr IVC .[id number] [facility] Rx #:[id number] Ofirmev 1,000 mg/100 ml 1,000 100 / 100 100 / 100 100 / 100 mg In 100 ml @ 400 mls/hr IVPB Q6H [facility] Rx#:[id number] Oral 30 / 30 Output: Catheter 800 / 800 300 / 300 Wound Drainage 25 / 25 40 / 40 0 / 0 Right Abdomen 25 / 25 40 / 40 0 / 0 Other: Meal NPO Weight 54.1 kg Blood Glucose* 112 85 67 Patient Weight 10/27/17 23:59 Weight 54.1 kg - Labs 10/27/17 05:09 10/27/17 05:09 Diabetes panel 10/27/17 Range/Units 05:09 Sodium 137 (136-145) mEq/L Potassium 4.6 (3.5-5.1) mEq/L Chloride 108 H (98-107) mEq/L Carbon Dioxide 23 (23-29) mEq/L BUN 24 H (8-23) mg/dL Creatinine 0.80 (0.70-1.30) mg/dL Glucose 83 (70-105) mg/dL Calcium 8.6 (8.6-10.3) mg/dL Calcium panel 10/27/17 Range/Units 05:09 Calcium 8.6 (8.6-10.3) mg/dL Pituitary panel 10/27/17 Range/Units 05:09 Sodium 137 (136-145) mEq/L Potassium 4.6 (3.5-5.1) mEq/L Chloride 108 H (98-107) mEq/L Carbon Dioxide 23 (23-29) mEq/L BUN 24 H (8-23) mg/dL Creatinine 0.80 (0.70-1.30) mg/dL Glucose 83 (70-105) mg/dL Calcium 8.6 (8.6-10.3) mg/dL Adrenal panel 10/27/17 Range/Units 05:09 Sodium 137 (136-145) mEq/L Potassium 4.6 (3.5-5.1) mEq/L Chloride 108 H (98-107) mEq/L Carbon Dioxide 23 (23-29) mEq/L BUN 24 H (8-23) mg/dL Creatinine 0.80 (0.70-1.30) mg/dL Glucose 83 (70-105) mg/dL Calcium 8.6 (8.6-10.3) mg/dL - Attending Attestation The history, physical exam, and medical decision making was performed by the medical student either while I was physically present and actively involved or I personally re-performed the exam and medical decision making. I have verified the accuracy of the medical student's documentation with regards to the history, physical exam findings, and medical decision making. I reviewed the above assessment and evaluation and agree with the above plan. Patient having postoperative incisional pain. No signs of nausea or vomiting. Positive vessels. Will allow ice chips for now. Will follow CBC and BMP. Start dressing changes tomorrow and will change his medications for better pain control.
[2017-10-26] MEDS ORDERED: *HR* Heparin 5,000 UNIT/ML VIAL SQ SCH (11:38)
[2017-10-26] MEDS: Acetaminophen IV 1,000 MG/100 ML INFUS..BTL IVPB SCH ×2 (14:40→21:50)
[2017-10-26 15:16] LABS: INR 1.1
[2017-10-27] MEDS: Acetaminophen IV 1,000 MG/100 ML INFUS..BTL IVPB SCH ×4 (03:33→23:21)
[2017-10-27] MEDS: 0.9 % Sodium Chloride 1,000 ML IVC SCH ×2 (04:00→23:18)
[2017-10-27 05:52] LABS: Basophils % 0.2 %; Eosinophils % 0.2 %; Hematocrit 23.2 % (37.5-50.1); Immature Granulocytes % 0.3 % (0-4); Lymphocytes # 1.3 K/mcL (0.6-4.6); Mean Corpuscular HGB Conc 32.3 g/dL (31.6-35.5); Mean Corpuscular Hemoglobin 27.1 pg (28.0-33.3); Mean Corpuscular Volume 83.8 fL (83.0-100.0); Mean Platelet Volume 9.5 fL (9.4-12.4); Monocytes # 0.5 K/mcL (0.0-1.3); Monocytes % 8.5 %; Neutrophils # 4.2 K/mcL (1.6-8.9); Platelet Count 199 K/mcL (140-400); Red Blood Count 2.77 M/mcL (4.19-5.50); Segmented Neutrophils % 69.8 %
[2017-10-27 05:53] LABS: Hemoglobin 7.5 g/dL (12.9-16.9)
[2017-10-27 06:09] LABS: BUN/Creatinine Ratio 30 (6-26); Blood Urea Nitrogen 24 mg/dL (8-23); Calcium 8.6 mg/dL (8.6-10.3); Carbon Dioxide 23 mEq/L (23-29); Chloride 108 mEq/L (98-107); Glucose 83 mg/dL (70-105); Osmolality,Calculated 287 (280-300); Potassium 4.6 mEq/L (3.5-5.1); Sodium 137 mEq/L (136-145); eGFR For Non-African Americans > 60 (> 60)
[2017-10-27 06:20] LABS: Anisocytosis 1+ (Not Present); Platelet Estimate Normal (Normal); Poikilocytosis 2+ (Not Present)
[2017-10-27 06:21] LABS: Macrocytosis Present (Not Present); Microcytosis Present (Not Present); Ovalocytes 1+ (Not Present); Schistocytes 1+ (Not Present)
[2017-10-27] MEDS: Pantoprazole 40 MG VIAL IVP SCH (09:47)
[2017-10-27] MEDS ORDERED: Furosemide 20 MG/2 ML VIAL IVP ONE (11:45)
[2017-10-27] MEDS ORDERED: 0.9 % Sodium Chloride 250 ML ONE ×2 (12:52→17:05)
[2017-10-27] MEDS: MORPHINE SUL Oral CONC 10 MG/0.5 ML ORAL.SYG SL PRN (13:24)
--- NOTE | 2017-10-27 13:45 | General Surgery Progress Note ---
<JesseMelissa Fuentes - Last Filed: 10/27/17 13:56> Date of Encounter: 10/27/17 Time of Encounter: 11:45 - Assessment and Plan (1) Rectal cancer Current Visit: Yes Status: Acute Date of procedure: 10/25/17 Pre-op diagnosis: Recto-sigmoid cancer Post-op diagnosis: same Procedure: Exploratory celiotomy/low anterior resection Implants: Braulio drain 19FR x 1 Anesthesia: GETA Surgeon: Rhett Sotelo POD#2 as above. Pt states he is doing well. He has abdominal soreness. Small amount of SS drainage in DORCAS. VSS. Given history of ASHD and acute on chronic anemia, will transfuse 2U PRBC. Pathology pending Plan: continue supportive care and discomfort management transfuse 2 units packed red blood cells, 40 mg Lasix in between transfusions, will plan for DC Hernandez catheter in the a.m. G.I. and DVT prophylaxis (heparin was stopped and 10/26/2017 due to bright red blood in DORCAS), continue EPCDs clear liquid diet PT/OT for mobilization and DC planning noted social work consult for placement accurate intake and output IS, aggressive pulm toileting amb TID OOB to chair for all trays Maintain DORCAS to bulb suction (see DORCAS orders below) Daily DORCAS Drain Care: 1. Remove dressings. Shower with antibacterial soap. 2. Do not let the DORCAS drain dangle from your body. Use the safety pin to secure to your clothing. Secure the DORCAS to a lanyard or other type of long necklace when you shower. 3. Replace drain gauze and taped to secure. 4. Record the output from your DORCAS bulb (at least once daily) on the form provided and bring this with you to your follow-up appointment. 5. Keep the DORCAS drain to suction (squeeze the bulb and replace the cap while squeezing). 6. Strip the lines twice daily (hold onto the line as close to the body as you can, then with the other hand push the contents of the line into the DORCAS bulb). (2) S/P left hemicolectomy Current Visit: Yes Status: Acute See above (3) Anemia Current Visit: Yes Status: Acute Acute postoperative anemia on chronic anemia will transfuse 2 units as above will also order iron studies and consider venofer Qualifiers: Anemia type: iron deficiency Iron deficiency anemia type: unspecified iron deficiency Qualified Code(s): D50.9 - Iron deficiency anemia, unspecified (4) History of prostate cancer Current Visit: Yes Status: Acute S/P cystoscopy with placement bilateral temporary ureteral stents on 10/25/2017 Flomax has been initiated; will consider DC Hernandez in the a.m. Subjective Patient reports: feels better, still having pain, pain is less, voiding w/o difficulty (per hernandez), flatus, nausea, afebrile Objective Vital Signs - Last 8 Hours Temp Pulse Resp BP Pulse Ox 10/27/17 11:22 98.3 F 89 18 136/66 94 10/27/17 06:37 98.0 F 83 14 125/64 93 Intake and Output 10/26/17 10/27/17 10/27/17 23:59 07:59 15:59 Intake Total 100 / 100 1130 / 1130 100 / 100 Output Total 25 / 25 840 / 840 330 / 330 Balance 75 / 75 290 / 290 -230 / -230 Intake: IV Fluids 100 / 100 1100 / 1100 100 / 100 0.9 % Sodium Chloride 1,000 ML 1000 / 1000 @ 80 mls/hr IVC .[id number] [facility] Rx #:[id number] Ofirmev 1,000 mg/100 ml 1,000 100 / 100 100 / 100 100 / 100 mg In 100 ml @ 400 mls/hr IVPB Q6H [facility] Rx#:[id number] Oral 30 / 30 Output: Catheter 800 / 800 300 / 300 Wound Drainage 25 / 25 40 / 40 30 / 30 Right Abdomen 25 / 25 40 / 40 30 / 30 Other: Meal NPO LUNCH Weight 54.1 kg Blood Glucose* 112 85 71 Patient Weight 10/27/17 23:59 Weight 54.1 kg - General physical appearance no distress, other - Eyes normal ocular movement - ENT atraumatic, normocephalic - Neck Neck exam: trachea midline - Respiratory normal expansion, normal respiratory effort, clear to auscultation - Cardiovascular Cardiovascular exam: Present: RRR - Abdomen Abdomen: Present: bowel sounds present, soft, tender (expected post-operative tenderness) Hernia: none - Integumentary no growths - Neurologic normal sensation - Musculoskeletal normal posture - Psychiatric oriented to time, oriented to person, oriented to place - Labs 10/27/17 05:09 10/27/17 05:09 Diabetes panel 10/27/17 Range/Units 05:09 Sodium 137 (136-145) mEq/L Potassium 4.6 (3.5-5.1) mEq/L Chloride 108 H (98-107) mEq/L Carbon Dioxide 23 (23-29) mEq/L BUN 24 H (8-23) mg/dL Creatinine 0.80 (0.70-1.30) mg/dL Glucose 83 (70-105) mg/dL Calcium 8.6 (8.6-10.3) mg/dL Calcium panel 10/27/17 Range/Units 05:09 Calcium 8.6 (8.6-10.3) mg/dL Pituitary panel 10/27/17 Range/Units 05:09 Sodium 137 (136-145) mEq/L Potassium 4.6 (3.5-5.1) mEq/L Chloride 108 H (98-107) mEq/L Carbon Dioxide 23 (23-29) mEq/L BUN 24 H (8-23) mg/dL Creatinine 0.80 (0.70-1.30) mg/dL Glucose 83 (70-105) mg/dL Calcium 8.6 (8.6-10.3) mg/dL Adrenal panel 10/27/17 Range/Units 05:09 Sodium 137 (136-145) mEq/L Potassium 4.6 (3.5-5.1) mEq/L Chloride 108 H (98-107) mEq/L Carbon Dioxide 23 (23-29) mEq/L BUN 24 H (8-23) mg/dL Creatinine 0.80 (0.70-1.30) mg/dL Glucose 83 (70-105) mg/dL Calcium 8.6 (8.6-10.3) mg/dL - VTE Documentation of Mechanical Device: Intermittent pneumatic compression device Consult Discharge Plan - Plan Referrals: Vic Kong DO [Primary Care Provider] - Rhett Sotelo MD [Partnered Physician] - 11/07/17 4:05 pm <Rhett Sotelo - Last Filed: 10/28/17 07:03> Date of Encounter: 10/27/17 - Assessment and Plan (1) Rectal cancer Current Visit: Yes Status: Acute Objective Vital Signs - Last 8 Hours Temp Pulse Resp BP Pulse Ox 10/28/17 06:49 98.8 F 85 18 150/90 98 10/28/17 03:11 97.8 F 96 18 163/73 96 10/27/17 23:32 98.5 F 85 16 160/77 93 Intake and Output 10/27/17 10/27/17 10/28/17 15:59 23:59 07:59 Intake Total 100 / 100 750 / 750 200 / 200 Output Total 430 / 430 710 / 710 400 / 400 Balance -330 / -330 40 / 40 -200 / -200 Intake: IV Fluids 100 / 100 100 / 100 200 / 200 Ofirmev 1,000 mg/100 ml 1,000 100 / 100 100 / 100 200 / 200 mg In 100 ml @ 400 mls/hr IVPB Q6H [facility] Rx#:[id number] Blood Product 0 / 0 650 / 650 Rbcs Leuko Poor As-3 Ph Unit 0 / 0 300 / 300 [id number] Rbcs Leuko Poor As-3 Ph Unit 350 / 350 [id number] Output: Urine 100 / 100 660 / 660 400 / 400 Catheter 300 / 300 Wound Drainage 30 / 30 50 / 50 Right Abdomen 30 / 30 50 / 50 Other: Meal NPO LUNCH Weight 53.8 kg Blood Glucose* 71 60 Patient Weight 10/28/17 23:59 Weight 53.8 kg - Labs 10/28/17 05:03 10/27/17 05:09 - Attending Attestation I have personally performed a face to face evaluation on this patient. I have reviewed and agree with the care plan. History and Exam by me shows: I personally reviewed the above assessment and evaluation and evaluate the patient as well. I agree with the above-mentioned plan.
[2017-10-27 14:44] LABS: % Iron Saturation 32 % (20-55); Iron 81 mcg/dL (65-175); Transferrin 181 mg/dL (203-362)
[2017-10-28] MEDS: 0.9 % Sodium Chloride 1,000 ML IVC SCH (04:38)
[2017-10-28] MEDS: Acetaminophen IV 1,000 MG/100 ML INFUS..BTL IVPB SCH ×4 (04:39→23:14)
[2017-10-28 05:53] LABS: Basophils % 0.2 %; Eosinophils # 0.1 K/mcL (0.0-0.6); Eosinophils % 1.6 %; Hematocrit 32.7 % (37.5-50.1); Immature Granulocytes % 0.2 % (0-4); Lymphocytes # 1.7 K/mcL (0.6-4.6); Lymphocytes % 33.7 %; Mean Corpuscular HGB Conc 32.4 g/dL (31.6-35.5); Mean Corpuscular Hemoglobin 27.9 pg (28.0-33.3); Mean Corpuscular Volume 86.1 fL (83.0-100.0); Monocytes # 0.5 K/mcL (0.0-1.3); Monocytes % 9.2 %; Neutrophils # 2.8 K/mcL (1.6-8.9); Platelet Count 184 K/mcL (140-400); Red Cell Distribution Width 20.2 % (11.5-14.5); Segmented Neutrophils % 55.1 %
[2017-10-28 06:04] LABS: Hemoglobin 10.6 g/dL (12.9-16.9)
[2017-10-28 07:16] LABS: BUN/Creatinine Ratio 23 (6-26); Blood Urea Nitrogen 19 mg/dL (8-23); Calcium 8.4 mg/dL (8.6-10.3); Carbon Dioxide 20 mEq/L (23-29); Chloride 110 mEq/L (98-107); Glucose 53 mg/dL (70-105); Magnesium 1.7 mg/dL (1.6-2.6); Osmolality,Calculated 272 (280-300); Phosphorous 3.5 mg/dL (2.7-4.5); Potassium 3.7 mEq/L (3.5-5.1); Sodium 131 mEq/L (136-145); eGFR For Non-African Americans > 60 (> 60)
[2017-10-28] MEDS: OXYCODONE Oral CONC 10 MG/0.5 ML ORAL.SYG SL PRN ×2 (08:12→15:07)
[2017-10-28] MEDS: Pantoprazole 40 MG VIAL IVP SCH (08:12)
--- NOTE | 2017-10-28 11:20 | General Surgery Progress Note ---
<Jessica Hernandez - Last Filed: 10/28/17 11:18> Date of Encounter: 10/28/17 Time of Encounter: 11:00 - Assessment and Plan (1) Rectal cancer Status: Acute POD #3 Exploratory celiotomy/low anterior resection with Dr. Sotelo Pathology pending Clear liquid diet- consider advancing to full liquids Supportive care and pain control IV fluids- 35ml/hour PPI therapy daily IS every 1 hour while awake Daily dressing changes Ambulate hallways TID with assistance Repeat am labs- CBC, BMP (2) Suicidal ideations Status: Acute Sitter at bedside Psychiatry consult- notified 10/27/17 (3) Anemia Status: Acute Hgb- 7.5>10.6 Transfused 2 units PRBC 10/27/17 Monitor Hgb/Hct- repeat am labs Monitor drain output Qualifiers: Anemia type: iron deficiency Iron deficiency anemia type: unspecified iron deficiency Qualified Code(s): D50.9 - Iron deficiency anemia, unspecified (4) DVT prophylaxis Status: Acute EPCDs to bilateral lower extremities for DVT prophylaxis Ambulate hallways TID with assistance Hold heparin due to acute blood loss anemia Subjective Patient reports: no new complaints, feels better, still having pain, pain is less, tolerating liquids well, voiding w/o difficulty, flatus, no bowel movement , afebrile, other (Sitter at bedside- patient threatened to harm himself yesterday) Objective Vital Signs - Last 8 Hours Temp Pulse Resp BP Pulse Ox 10/28/17 10:39 97.9 F 63 18 140/80 95 10/28/17 06:49 98.8 F 85 18 150/90 98 Intake and Output 10/27/17 10/28/17 10/28/17 23:59 07:59 15:59 Intake Total 750 / 750 200 / 200 420 / 420 Output Total 710 / 710 400 / 400 10 / 10 Balance 40 / 40 -200 / -200 410 / 410 Intake: IV Fluids 100 / 100 200 / 200 Ofirmev 1,000 mg/100 ml 1,000 100 / 100 200 / 200 mg In 100 ml @ 400 mls/hr IVPB Q6H [facility] Rx#:[id number] Oral 420 / 420 Blood Product 650 / 650 Rbcs Leuko Poor As-3 Ph Unit 300 / 300 [id number] Rbcs Leuko Poor As-3 Ph Unit 350 / 350 [id number] Output: Urine 660 / 660 400 / 400 Wound Drainage 50 / 50 10 / 10 Right Abdomen 50 / 50 10 / 10 Other: Meal Breakfast Weight 53.8 kg Blood Glucose* 60 Patient Weight 10/28/17 23:59 Weight 53.8 kg - General physical appearance well developed, well nourished, no distress, other (Sitter at bedside) - ENT normal mucosa, atraumatic, normocephalic - Neck Neck exam: trachea midline - Respiratory normal respiratory effort, clear to auscultation - Cardiovascular Cardiovascular exam: Present: RRR - Abdomen Abdomen: Present: bowel sounds present, soft, tender (expected post-operative tenderness), wound (DORCAS drain to bulb suction with serousang. drainage noted ( 30ml noted since midinight)) - Incision Incision: Present: clean and dry, intact - Neurologic CN 2-12 grossly intact - Psychiatric oriented to time, oriented to person, oriented to place, speech is normal, memory intact, other (Patient is calm with sitter at bedside) - Labs 10/28/17 05:03 10/28/17 05:03 Diabetes panel 10/28/17 Range/Units 05:03 Sodium 131 L (136-145) mEq/L Potassium 3.7 (3.5-5.1) mEq/L Chloride 110 H (98-107) mEq/L Carbon Dioxide 20 L (23-29) mEq/L BUN 19 (8-23) mg/dL Creatinine 0.81 (0.70-1.30) mg/dL Glucose 53 L (70-105) mg/dL Calcium 8.4 L (8.6-10.3) mg/dL Calcium panel 10/28/17 Range/Units 05:03 Calcium 8.4 L (8.6-10.3) mg/dL Phosphorus 3.5 (2.7-4.5) mg/dL Pituitary panel 10/28/17 Range/Units 05:03 Sodium 131 L (136-145) mEq/L Potassium 3.7 (3.5-5.1) mEq/L Chloride 110 H (98-107) mEq/L Carbon Dioxide 20 L (23-29) mEq/L BUN 19 (8-23) mg/dL Creatinine 0.81 (0.70-1.30) mg/dL Glucose 53 L (70-105) mg/dL Calcium 8.4 L (8.6-10.3) mg/dL Adrenal panel 10/28/17 Range/Units 05:03 Sodium 131 L (136-145) mEq/L Potassium 3.7 (3.5-5.1) mEq/L Chloride 110 H (98-107) mEq/L Carbon Dioxide 20 L (23-29) mEq/L BUN 19 (8-23) mg/dL Creatinine 0.81 (0.70-1.30) mg/dL Glucose 53 L (70-105) mg/dL Calcium 8.4 L (8.6-10.3) mg/dL - VTE Documentation of Mechanical Device: Intermittent pneumatic compression device Consult Discharge Plan - Plan Instructions: Colectomy (GEN) Additional Instructions: Activity as tolerated- avoid lifting more than 10# until cleared at follow up appt; Wash incision and drain site daily with soap, rinse, pat dry- may leave open to air. May shower, no tub baths; Advance to usual diet as tolerated. Follow up with General Surgery later this coming week. DORCAS drain to be emptied and measured once a day, keep log. May take Percoset as needed every 6 hours for pain. Take Colace twice daily for constipation while on narcotics. Referrals: iVc Kong DO [Primary Care Provider] - Rhett Sotelo MD [Partnered Physician] - 11/07/17 4:05 pm Prescriptions: OxyCODONE/APAP 5/325 [Percocet 5/325 MG] 1 each PO Q6HR PRN 7 Days #26 tablet PRN Reason: Pain Docusate [Colace] 100 mg PO BID 10 Days #20 capsule - Attending Attestation For this encounter, I have reviewed the VAULT WORKER or PA documentation, treatment plan, and medical decision making; and I have had face to face time with this patient. <Rhett Sotelo - Last Filed: 10/29/17 15:30> Date of Encounter: 10/28/17 - Assessment and Plan (1) Rectal cancer Status: Acute Objective Intake and Output 10/28/17 10/29/17 10/29/17 23:59 07:59 15:59 Intake Total 600 / 600 1045 / 1045 360 / 360 Output Total 100 / 100 480 / 480 Balance 500 / 500 565 / 565 339 / 339 Intake: IV Fluids 200 / 200 945 / 945 0.9 % Sodium Chloride 1,000 ML 845 / 845 @ 35 mls/hr IVC .Q24H [facility] Rx#: [id number] Ofirmev 1,000 mg/100 ml 1,000 200 / 200 100 / 100 mg In 100 ml @ 400 mls/hr IVPB Q6H [facility] Rx#:[id number] Oral 400 / 400 100 / 100 360 / 360 Output: Urine 100 / 100 400 / 400 Wound Drainage 0 / 0 80 / 80 Right Abdomen 0 / 0 80 / 80 Other: Meal Dinner Breakfast Percent of Meal Consumed 5% 70% # Voids 1 # Bowel Movements 0 0 Weight 54.2 kg Patient Weight 10/29/17 23:59 Weight 54.2 kg - Labs 10/29/17 04:20 10/29/17 04:20 Diabetes panel 10/29/17 Range/Units 04:20 Sodium 136 (136-145) mEq/L Potassium 3.5 (3.5-5.1) mEq/L Chloride 106 (98-107) mEq/L Carbon Dioxide 25 (23-29) mEq/L BUN 15 (8-23) mg/dL Creatinine 0.65 L (0.70-1.30) mg/dL Glucose 92 (70-105) mg/dL Calcium 8.3 L (8.6-10.3) mg/dL Calcium panel 10/29/17 Range/Units 04:20 Calcium 8.3 L (8.6-10.3) mg/dL Pituitary panel 10/29/17 Range/Units 04:20 Sodium 136 (136-145) mEq/L Potassium 3.5 (3.5-5.1) mEq/L Chloride 106 (98-107) mEq/L Carbon Dioxide 25 (23-29) mEq/L BUN 15 (8-23) mg/dL Creatinine 0.65 L (0.70-1.30) mg/dL Glucose 92 (70-105) mg/dL Calcium 8.3 L (8.6-10.3) mg/dL Adrenal panel 10/29/17 Range/Units 04:20 Sodium 136 (136-145) mEq/L Potassium 3.5 (3.5-5.1) mEq/L Chloride 106 (98-107) mEq/L Carbon Dioxide 25 (23-29) mEq/L BUN 15 (8-23) mg/dL Creatinine 0.65 L (0.70-1.30) mg/dL Glucose 92 (70-105) mg/dL Calcium 8.3 L (8.6-10.3) mg/dL - Attending Attestation I reviewed the above assessment and evaluation and agree with the above plan. We will continue to advance diet. Overall patient is improving. Will allow full liquids and likely advance diet to soft foods tomorrow. Tolerates to moderate likely DC home tomorrow afternoon.
--- NOTE | 2017-10-28 15:38 | Psychiatry Progress Note ---
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 Psychiatric consultation requested regarding suicidal ideation. Patient denied any psychiatric history or treatment, he is occupied unfocused on somatic issues especially pain and denies any thoughts of suicide or hopelessness. He enjoys working around the house and spending time with his family to daughter's and grandchildren. His earlier this year and he is coping well. He looks much younger than his stated age. His his answer the question are nonspecific and suggests possible some degree of dementia. Review of Systems Psychiatric: Reports: suicidal ideation Results - Vital Signs Vital Signs: Temp Pulse Resp BP Pulse Ox 97.7 F 78 18 120/80 96 10/28/17 15:01 10/28/17 15:01 10/28/17 15:01 10/28/17 15:01 10/28/17 15:01 - Labs Labs: Laboratory Results - last 24 hr 10/27/17 10/27/17 10/28/17 12:15 17:27 05:03 WBC 5.1 RBC 3.80 L Hgb 10.6 L D Hct 32.7 L MCV 86.1 MCH 27.9 L MCHC 32.4 RDW 20.2 H Plt Count 184 MPV 9.0 L Immature Gran % 0.2 Seg Neutrophils % 55.1 Lymphocytes % 33.7 Monocytes % 9.2 Eosinophils % 1.6 Basophils % 0.2 Neutrophils # 2.8 Lymphocytes # 1.7 Monocytes # 0.5 Eosinophils # 0.1 Basophils # 0.0 Sodium Potassium Chloride Carbon Dioxide BUN Creatinine Est GFR ( Amer) Est GFR (Non-Af Amer) BUN/Creatinine Ratio Glucose POC Glucose 60 L Calculated Osmolality Calcium Phosphorus Magnesium Blood Type O POSITIVE Antibody Screen NEGATIVE Crossmatch See Detail 10/28/17 05:03 WBC RBC Hgb Hct MCV MCH MCHC RDW Plt Count MPV Immature Gran % Seg Neutrophils % Lymphocytes % Monocytes % Eosinophils % Basophils % Neutrophils # Lymphocytes # Monocytes # Eosinophils # Basophils # Sodium 131 L Potassium 3.7 Chloride 110 H Carbon Dioxide 20 L BUN 19 Creatinine 0.81 Est GFR ( Amer) > 60 Est GFR (Non-Af Amer) > 60 BUN/Creatinine Ratio 23 Glucose 53 L POC Glucose Calculated Osmolality 272 L Calcium 8.4 L Phosphorus 3.5 Magnesium 1.7 Blood Type Antibody Screen Crossmatch Assessment and Plan (1) Suicidal ideations Current visit: Yes Status: Acute Additional Plan: 1. Patient is stable from psychiatric standpoint and not suicidal and has no previous mental health history 2. Continue medical treatment and stabilization 3. When patient is medically clear he can be discharged, there is no psychiatric criteria for inpatient treatment. He may benefit from outpatient mental health's or counseling. Thank you for consultation. Consult Discharge Plan - Plan Referrals: Vic Kong DO [Primary Care Provider] - Rhett Sotelo MD [Partnered Physician] - 11/07/17 4:05 pm Psychiatry Exam - Constitutional Vitals: Temp Pulse Resp BP Pulse Ox 97.7 F 78 18 120/80 96 10/28/17 15:01 10/28/17 15:01 10/28/17 15:01 10/28/17 15:01 10/28/17 15:01 General appearance: age & developmentally appropriate, well-groomed, well- nourished, thin - Musculoskeletal Gait: normal Station: relaxed Strength & Tone: normal for patient - Psychiatric Patient Orientation: Yes Person, Yes Time, Yes Place Level of alertness: Alert Behavior: calm, cooperative Psychomotor activity: Normal Eye Contact: Maintains Eye Contact Mood Description: Euthymic/stable Affect description: congruent with mood, full range Speech Volume: Normal Speech pattern: normal rate, normal rhythm, normal tone, fluent, spontaneous Language & Vocabulary: consistent with education Thought Process: Linear, Goal Oriented Thought Content: No Suicidal ideation, No Homicidal ideation, No Overt delusions Perceptual Disturbances: No Auditory hallucinations, No Visual hallucinations Attention Span Ability: Capable of Focused Attention Memory Description: Grossly Intact, Remote Impaired Patient Reliability: Not Reliable Historian Fund of knowledge: Yes abstraction ability, Yes aware of current events Intelligence Estimate: Average Judgment: Limited Insight: Partial
[2017-10-29] MEDS: OXYCODONE Oral CONC 10 MG/0.5 ML ORAL.SYG SL PRN (01:28)
[2017-10-29 04:34] LABS: Basophils % 0.2 %; Eosinophils # 0.2 K/mcL (0.0-0.6); Eosinophils % 3.8 %; Hematocrit 30.5 % (37.5-50.1); Hemoglobin 10.2 g/dL (12.9-16.9); Immature Granulocytes % 0.4 % (0-4); Lymphocytes # 1.1 K/mcL (0.6-4.6); Lymphocytes % 21.1 %; Mean Corpuscular HGB Conc 33.4 g/dL (31.6-35.5); Mean Corpuscular Hemoglobin 28.5 pg (28.0-33.3); Mean Corpuscular Volume 85.2 fL (83.0-100.0); Mean Platelet Volume 8.4 fL (9.4-12.4); Monocytes # 0.4 K/mcL (0.0-1.3); Monocytes % 8.5 %; Neutrophils # 3.3 K/mcL (1.6-8.9); Platelet Count 175 K/mcL (140-400); Red Blood Count 3.58 M/mcL (4.19-5.50)
[2017-10-29] MEDS: Acetaminophen IV 1,000 MG/100 ML INFUS..BTL IVPB SCH (04:48)
[2017-10-29] MEDS: 0.9 % Sodium Chloride 1,000 ML IVC SCH (04:48)
[2017-10-29 04:59] LABS: BUN/Creatinine Ratio 23 (6-26); Blood Urea Nitrogen 15 mg/dL (8-23); Calcium 8.3 mg/dL (8.6-10.3); Carbon Dioxide 25 mEq/L (23-29); Chloride 106 mEq/L (98-107); Glucose 92 mg/dL (70-105); Osmolality,Calculated 282 (280-300); Potassium 3.5 mEq/L (3.5-5.1); Sodium 136 mEq/L (136-145); eGFR For Non-African Americans > 60 (> 60)
[2017-10-29 07:26] VITALS: BP 177/83
[2017-10-29] MEDS: Pantoprazole 40 MG VIAL IVP SCH (09:08)
--- NOTE | 2017-10-29 10:12 | Discharge Summary ---
<Stephanie Pritchett E - Last Filed: 10/29/17 14:38> Date of Encounter: 10/29/17 Time of Encounter: 08:00 - Discharge Diagnosis (1) S/P left hemicolectomy Priority: Primary Status: Acute Comments: It is tolerating regular diet DORCAS drain management training for family Percocet and Colace scribed Follow-up this week with surgery either Dr. Sotelo or his nurse practitioner She will be discharged today General Surgery Exam Initial Vital Signs Temp Pulse Resp BP Pulse Ox 97.8 F 110 18 112/57 100 10/25/17 06:33 10/25/17 06:33 10/25/17 06:33 10/25/17 06:33 10/25/17 06:33 - General physical appearance well developed, well nourished, no distress - Respiratory normal expansion, normal respiratory effort, clear to auscultation - Cardiovascular Cardiovascular exam: Present: RRR, no murmurs/rubs/gallops - Abdomen Abdomen general surgery: Present: bowel sounds present, soft, non tender - Incision Incision: Present: draining (DORCAS drain draining serosanguineous fluid.), clean and dry, intact - Integumentary Integumentary general surgery: Present: warm and dry, no abnormal pigmentation - Musculoskeletal Present: normal posture - Psychiatric Psychiatric general surgery: Present: appropriate, oriented to person, oriented to place, oriented to time - Hospital Course Hospital course: Mr. Scott is a 81 year old male resented to [facility] several months ago with weakness and rectal bleeding and anemia here for colonoscopy showing a rectal mass that was consistent with adenocarcinoma of the rectum. He presents to the OR for a low anterior resection preceded by ureteral stents. On 10/25/2017 he had a exploratory celiotomy/anterior resection. Tolerated the procedure well. On October 27 he was to be evaluated by psychiatry for possible suicidal ideations. Psychiatry has sense clear to him. He has been able to ambulate the hallways 3 times a day with assistance, he has had drain output noted a serosanguineous since surgery. The DORCAS drain will have to stay in when he goes home. This will be followed up in office next week. - Time Spent with Patient Total time spent providing and/or coordinating discharge services: - Discharge Medications Prescriptions: OxyCODONE/APAP 5/325 [Percocet 5/325 MG] 1 each PO Q6HR PRN 7 Days #26 tablet PRN Reason: Pain Docusate [Colace] 100 mg PO BID 10 Days #20 capsule Home Medications: Atorvastatin [Lipitor] 40 mg PO HS 08/10/17 [History] Pantoprazole Sodium [Protonix] 20 mg PO DAILY 10/25/17 [History] Docusate [Colace] 100 mg PO BID 10 Days #20 capsule 10/29/17 [Rx] OxyCODONE/APAP 5/325 [Percocet 5/325 MG] 1 each PO Q6HR PRN 7 Days #26 tablet [Rx] Allergies/Adverse Reactions: 3 Allergy/AdvReac Type Severity Reaction Status Date / Time No Known Allergies Allergy Verified 10/25/17 14:25 Date of admission: 10/25/17 12:46 Primary care physician: Khang Kong DO Consults: 10/25/17 12:57 Consult to Physical Therapy [CONS] Routine Comment: Evaluate, develop and implement POC Reason for Consult: s/p low anterior resection. Does patient have active BEDREST order?: No Is patient medically & hemodynamically stable?: Yes 10/26/17 15:01 Consult to Metal Furniture Assembly Supervisor [CONS] Routine Reason for SW Consult: placement 10/27/17 11:47 Consult to Occupational Therapy [CONS] Routine Comment: Evaluate, develop and implement POC Reason for Consult: mobilization and d/c planning s/p LAR. Lives alone Does patient have active BEDREST order?: No Is patient medically & hemodynamically stable?: Yes Patient assessed for mobility or mobilized this visit?: No 10/27/17 14:29 Consult to Psychiatry [CONS] Stat Consulting Provider: Psychiatry Deanne Reason consult: Sitter/1:1 Other Other reason and/or additional details: suicidal ideations Time Notified: 14:30 Call Completed: Yes Discharging clinician: Rhett Sotelo Anticipated date of discharge: 10/29/17 Labs on day of discharge: Labs from last 24 hours 10/29/17 10/29/17 04:20 04:20 WBC 5.0 RBC 3.58 L Hgb 10.2 L Hct 30.5 L MCV 85.2 MCH 28.5 MCHC 33.4 RDW 20.0 H Plt Count 175 MPV 8.4 L Immature Gran % 0.4 Seg Neutrophils % 66.0 Lymphocytes % 21.1 Monocytes % 8.5 Eosinophils % 3.8 Basophils % 0.2 Neutrophils # 3.3 Lymphocytes # 1.1 Monocytes # 0.4 Eosinophils # 0.2 Basophils # 0.0 Sodium 136 Potassium 3.5 Chloride 106 Carbon Dioxide 25 BUN 15 Creatinine 0.65 L Est GFR ( Amer) > 60 Est GFR (Non-Af Amer) > 60 BUN/Creatinine Ratio 23 Glucose 92 Calculated Osmolality 282 Calcium 8.3 L - Patient Status Disposition: Home, Self-Care Condition: Good Overall status at discharge: patient is progressing back to baseline - Discharge Instructions Instructions: Colectomy (GEN) Follow Up With: Vic Kong DO [Primary Care Provider] - Rhett Sotelo MD [Partnered Physician] - 11/07/17 4:05 pm Additional Instructions: Activity as tolerated- avoid lifting more than 10# until cleared at follow up appt; Wash incision and drain site daily with soap, rinse, pat dry- may leave open to air. May shower, no tub baths; Advance to usual diet as tolerated. Follow up with General Surgery later this coming week. DORCAS drain to be emptied and measured once a day, keep log. May take Percoset as needed every 6 hours for pain. Take Colace twice daily for constipation while on narcotics. - Diet and Activity Activity: increase activity as tolerated Diet: advance to your usual diet <Rhett Sotelo - Last Filed: 10/29/17 15:34> Date of Encounter: 10/29/17 - Discharge Diagnosis (1) Rectal cancer Status: Acute General Surgery Exam Initial Vital Signs Temp Pulse Resp BP Pulse Ox 97.8 F 110 18 112/57 100 10/25/17 06:33 10/25/17 06:33 10/25/17 06:33 10/25/17 06:33 10/25/17 06:33 - Hospital Course Hospital course: Mr. Scott is a 81 year old male - Time Spent with Patient Total time spent providing and/or coordinating discharge services: Date of admission: 10/25/17 12:46 Primary care physician: Khang Kong DO Consults: 10/25/17 12:57 Consult to Physical Therapy [CONS] Routine Comment: Evaluate, develop and implement POC Reason for Consult: s/p low anterior resection. Does patient have active BEDREST order?: No Is patient medically & hemodynamically stable?: Yes 10/26/17 15:01 Consult to Metal Furniture Assembly Supervisor [CONS] Routine Reason for SW Consult: placement 10/27/17 11:47 Consult to Occupational Therapy [CONS] Routine Comment: Evaluate, develop and implement POC Reason for Consult: mobilization and d/c planning s/p LAR. Lives alone Does patient have active BEDREST order?: No Is patient medically & hemodynamically stable?: Yes Patient assessed for mobility or mobilized this visit?: No 10/27/17 14:29 Consult to Psychiatry [CONS] Stat Consulting Provider: Psychiatry Deanne Reason consult: Sitter/1:1 Other Other reason and/or additional details: suicidal ideations Time Notified: 14:30 Call Completed: Yes Labs on day of discharge: Labs from last 24 hours 10/29/17 10/29/17 04:20 04:20 WBC 5.0 RBC 3.58 L Hgb 10.2 L Hct 30.5 L MCV 85.2 MCH 28.5 MCHC 33.4 RDW 20.0 H Plt Count 175 MPV 8.4 L Immature Gran % 0.4 Seg Neutrophils % 66.0 Lymphocytes % 21.1 Monocytes % 8.5 Eosinophils % 3.8 Basophils % 0.2 Neutrophils # 3.3 Lymphocytes # 1.1 Monocytes # 0.4 Eosinophils # 0.2 Basophils # 0.0 Sodium 136 Potassium 3.5 Chloride 106 Carbon Dioxide 25 BUN 15 Creatinine 0.65 L Est GFR ( Amer) > 60 Est GFR (Non-Af Amer) > 60 BUN/Creatinine Ratio 23 Glucose 92 Calculated Osmolality 282 Calcium 8.3 L - Patient Status Overall status at discharge: patient is progressing back to baseline - Attending Attestation I examined this patient and my medical decision-making was reviewed with the Resident Physician. I agree with the documented findings, disposition and treatment plan as described except to the extent set forth below. I reviewed the above and assessment and evaluation agree with the above plan. I will make certain that he has a follow-up to see our nurse practitioner this upcoming week for possible drain removal.
== END 2017-10-29 11:15 | disposition home or self-care (01) | DRG 330 ==
LOC: SAMDAY 06:18 → 3ANU 12:46
PROVIDERS: ADMIT Surgery; ATTEND Surgery

== ENCOUNTER 2019-02-03 14:20 | Inpatient (IN) ==
[2019-02-03] MEDS ORDERED: 0.9 % Sodium Chloride 1,000 ML IVC ONE (14:43)
[2019-02-03] MEDS ORDERED: Ipratropium/Albuterol Neb 3 ML IH ONE (14:48)
[2019-02-03] MEDS ORDERED: Isovue-370 500 ML BOTTLE IVP ONE (15:01)
[2019-02-03 15:09] LABS: Basophils % 0.2 %; Hematocrit 40.5 % (37.5-50.1); Hemoglobin 14.3 g/dL (12.9-16.9); Immature Granulocytes % 0.3 % (0-4); Lymphocytes # 1.2 K/mcL (0.6-4.6); Lymphocytes % 6.6 %; Mean Corpuscular HGB Conc 35.3 g/dL (31.6-35.5); Mean Corpuscular Hemoglobin 31.2 pg (28.0-33.3); Mean Corpuscular Volume 88.2 fL (83.0-100.0); Mean Platelet Volume 9.2 fL (9.4-12.4); Monocytes # 1.1 K/mcL (0.0-1.3); Monocytes % 6.2 %; Neutrophils # 15.1 K/mcL (1.6-8.9); Platelet Count 275 K/mcL (140-400); Red Blood Count 4.59 M/mcL (4.19-5.50); Red Cell Distribution Width 12.3 % (11.5-14.5); Segmented Neutrophils % 86.7 %; White Blood Count 17.4 K/mcL (4.3-11.1)
[2019-02-03 15:33] LABS: Albumin/Globulin Ratio 1.3 (1.1-2.2); Bilirubin,Total 1.1 mg/dL (0.3-1.0); Calcium 9.4 mg/dL (8.6-10.3); Globulin 3.2 g/dL (2.4-3.5); Potassium 4.1 mEq/L (3.5-5.1); Total Protein 7.2 g/dL (6.4-8.9)
[2019-02-03 15:35] LABS: Troponin I 0.05 ng/mL (< 0.04)
[2019-02-03] MEDS ORDERED: cefTRIAXone 1,000 MG in Water for inj. (sterile) 10 ML IVP ONE (16:03)
[2019-02-03] MEDS ORDERED: Azithromycin 500 MG in 0.9 % Sodium Chloride 250 ML IVPB ONE (16:03)
[2019-02-03] MEDS ORDERED: 0.9 % Sodium Chloride 1,000 ML IVC STA (16:28)
[2019-02-03] MEDS ORDERED: Ondansetron 4 MG/2 ML VIAL IVP ONE (17:16)
[2019-02-03 17:17] LABS: Bilirubin,Urine Negative (Negative); Blood,Urine Negative (Negative); Clarity,Urine Clear (Clear); Color,Urine Yellow (Yellow); Glucose,Urine (UA) Normal (Normal); Ketones,Urine Negative (Negative); Leukocyte Esterase,Urine Negative (Negative); Nitrite,Urine Negative (Negative); PH,Urine 6.5 pH Units (5.0-8.0); Protein,Urine Trace mg/dL (Neg-Trace); Specific Gravity,Urine 1.021 (1.010-1.025); Urobilinogen,Urine Normal (Normal)
[2019-02-03] MEDS ORDERED: Naloxone 0.4 MG/ML INJ IVP PRN (18:08)
[2019-02-03] MEDS ORDERED: *HR* OxyCODONE/APAP 5/325 TABLET PO PRN (18:10)
[2019-02-03] MEDS ORDERED: Ondansetron 4 MG/2 ML VIAL IVP PRN (18:34)
[2019-02-03] MEDS: 0.9 % Sodium Chloride 1,000 ML IVC SCH (19:20)
[2019-02-03] MEDS ORDERED: Acetaminophen 325 MG TABLET PO PRN (22:03)
[2019-02-03] MEDS ORDERED: traMADol 50 MG TABLET PO PRN (22:04)
[2019-02-04 00:15] LABS: Basophils % 0.1 %; Hematocrit 34.1 % (37.5-50.1); Immature Granulocytes % 0.4 % (0-4); Lymphocytes # 1.8 K/mcL (0.6-4.6); Lymphocytes % 12.1 %; Mean Corpuscular Hemoglobin 30.5 pg (28.0-33.3); Mean Corpuscular Volume 89.7 fL (83.0-100.0); Monocytes # 0.6 K/mcL (0.0-1.3); Monocytes % 3.9 %; Neutrophils # 12.6 K/mcL (1.6-8.9); Platelet Count 210 K/mcL (140-400); Red Cell Distribution Width 12.6 % (11.5-14.5); Segmented Neutrophils % 83.5 %
[2019-02-04 00:16] LABS: Hemoglobin 11.6 g/dL (12.9-16.9)
[2019-02-04 00:33] LABS: BUN/Creatinine Ratio 22 (6-26); Blood Urea Nitrogen 24 mg/dL (8-23); Calcium 8.3 mg/dL (8.6-10.3); Carbon Dioxide 22 mEq/L (23-29); Chloride 108 mEq/L (98-107); Glucose 96 mg/dL (70-105); Magnesium 1.6 mg/dL (1.6-2.6); Osmolality,Calculated 286 (280-300); Phosphorous 2.6 mg/dL (2.7-4.5); Potassium 4.1 mEq/L (3.5-5.1); Sodium 136 mEq/L (136-145); eGFR For African Americans > 60 (> 60); eGFR For Non-African Americans > 60 (> 60)
[2019-02-04 02:25] LABS: Adenovirus Not Detected (Not Detect); Bordetella Pertussis Not Detected (Not Detect); Chlamydophila pneumoniae Not Detected (Not Detect); Coronavirus 229E Not Detected (Not Detect); Coronavirus HKU1 Not Detected (Not Detect); Coronavirus NL63 Not Detected (Not Detect); Coronavirus OC43 Not Detected (Not Detect); Human Metapneumovirus Not Detected (Not Detect); Human Rhinovirus/Enterovirus Not Detected (Not Detect); Influenza A Subtype 2009 H1 Not Detected (Not Detect); Influenza A Untypeable Not Detected (Not Detect); Influenza B Not Detected (Not Detect); Mycoplasma pneumoniae Not Detected (Not Detect); Parainfluenza Virus 1 Not Detected (Not Detect); Parainfluenza Virus 2 Not Detected (Not Detect); Parainfluenza Virus 3 Not Detected (Not Detect); Parainfluenza Virus 4 Not Detected (Not Detect); Respiratory Syncytial Virus Not Detected (Not Detect)
[2019-02-04] MEDS: *HR* Heparin 5,000 UNIT/ML VIAL SQ SCH ×2 (06:25→18:16)
[2019-02-04] MEDS: 0.9 % Sodium Chloride 1,000 ML IVC SCH ×2 (07:40→18:01)
[2019-02-04] MEDS: cefTRIAXone 1,000 MG in Water for inj. (sterile) 10 ML IVP SCH (10:19)
[2019-02-04] MEDS ORDERED: 0.9 % Sodium Chloride 250 ML ONE (17:53)
[2019-02-04] MEDS: Azithromycin 500 MG in 0.9 % Sodium Chloride 250 ML IVPB SCH (17:59)
[2019-02-04] MEDS: Melatonin 3 MG TABLET PO PRN (20:09)
[2019-02-04] MEDS ORDERED: Acetaminophen 325 MG TABLET PO PRN (20:29)
[2019-02-04 22:11] LABS: ABG Base Excess -2 mEq/L (-2 to 3); ABG HCO3 22 mEq/L (21-27); ABG Oxygen Saturation 95 % (95-98); ABG PCO2 34 mmHg (35-45); ABG PH 7.43 pH Units (7.32-7.45); ABG PO2 73 mmHg (85-104); ABG TCO2 23 mEq/L (20-26)
[2019-02-05] MEDS ORDERED: Isovue-370 500 ML BOTTLE IVP ONE (00:13)
[2019-02-05 02:16] LABS: Basophils % 0.2 %; Eosinophils % 0.4 %; Hematocrit 31.6 % (37.5-50.1); Hemoglobin 10.6 g/dL (12.9-16.9); Immature Granulocytes % 0.4 % (0-4); Lymphocytes % 10.6 %; Mean Corpuscular HGB Conc 33.5 g/dL (31.6-35.5); Mean Corpuscular Hemoglobin 31.3 pg (28.0-33.3); Mean Corpuscular Volume 93.2 fL (83.0-100.0); Mean Platelet Volume 9.6 fL (9.4-12.4); Monocytes # 0.6 K/mcL (0.0-1.3); Monocytes % 5.9 %; Neutrophils # 7.8 K/mcL (1.6-8.9); Platelet Count 179 K/mcL (140-400); Red Blood Count 3.39 M/mcL (4.19-5.50); Red Cell Distribution Width 12.7 % (11.5-14.5); Segmented Neutrophils % 82.5 %; White Blood Count 9.4 K/mcL (4.3-11.1)
[2019-02-05 02:36] LABS: BUN/Creatinine Ratio 21 (6-26); Blood Urea Nitrogen 17 mg/dL (8-23); Calcium 8.5 mg/dL (8.6-10.3); Carbon Dioxide 23 mEq/L (23-29); Chloride 108 mEq/L (98-107); Glucose 83 mg/dL (70-105); Magnesium 1.7 mg/dL (1.6-2.6); Osmolality,Calculated 285 (280-300); Phosphorous 2.2 mg/dL (2.7-4.5); Potassium 3.4 mEq/L (3.5-5.1); Sodium 137 mEq/L (136-145); eGFR For African Americans > 60 (> 60); eGFR For Non-African Americans > 60 (> 60)
[2019-02-05] MEDS: *HR* Heparin 5,000 UNIT/ML VIAL SQ SCH ×2 (05:41→17:52)
[2019-02-05] MEDS ORDERED: Ipratropium/Albuterol Neb 3 ML IH PRN (08:35)
[2019-02-05] MEDS: Potassium Chloride Elixir 20 MEQ/15 ML UDC PO SCH ×2 (09:34→12:40)
[2019-02-05] MEDS: cefTRIAXone 1,000 MG in Water for inj. (sterile) 10 ML IVP SCH (09:35)
[2019-02-05] MEDS: Furosemide 20 MG/2 ML VIAL IVP SCH ×2 (09:36→17:52)
[2019-02-05] MEDS: 0.9 % Sodium Chloride 1,000 ML IVC SCH (17:48)
[2019-02-05] MEDS: Azithromycin 500 MG in 0.9 % Sodium Chloride 250 ML IVPB SCH (17:53)
[2019-02-06] MEDS: Melatonin 3 MG TABLET PO PRN (02:40)
[2019-02-06] MEDS: *HR* Heparin 5,000 UNIT/ML VIAL SQ SCH (06:47)
[2019-02-06 06:54] LABS: Basophils % 0.1 %; Eosinophils % 0.3 %; Hematocrit 37.2 % (37.5-50.1); Hemoglobin 12.6 g/dL (12.9-16.9); Immature Granulocytes % 0.4 % (0-4); Lymphocytes # 1.6 K/mcL (0.6-4.6); Lymphocytes % 16.8 %; Mean Corpuscular HGB Conc 33.9 g/dL (31.6-35.5); Mean Corpuscular Hemoglobin 30.7 pg (28.0-33.3); Mean Corpuscular Volume 90.5 fL (83.0-100.0); Mean Platelet Volume 9.6 fL (9.4-12.4); Monocytes # 0.6 K/mcL (0.0-1.3); Monocytes % 6.7 %; Neutrophils # 7.1 K/mcL (1.6-8.9); Platelet Count 250 K/mcL (140-400); Red Blood Count 4.11 M/mcL (4.19-5.50); Red Cell Distribution Width 12.3 % (11.5-14.5); Segmented Neutrophils % 75.7 %; White Blood Count 9.4 K/mcL (4.3-11.1)
[2019-02-06 07:19] LABS: BUN/Creatinine Ratio 17 (6-26); Blood Urea Nitrogen 14 mg/dL (8-23); Calcium 9.2 mg/dL (8.6-10.3); Carbon Dioxide 22 mEq/L (23-29); Chloride 104 mEq/L (98-107); Glucose 105 mg/dL (70-105); Magnesium 1.7 mg/dL (1.6-2.6); Osmolality,Calculated 287 (280-300); Phosphorous 2.5 mg/dL (2.7-4.5); Potassium 3.3 mEq/L (3.5-5.1); Sodium 138 mEq/L (136-145); eGFR For African Americans > 60 (> 60); eGFR For Non-African Americans > 60 (> 60)
[2019-02-06 08:11] VITALS: BP 161/88
[2019-02-06] MEDS: Furosemide 20 MG/2 ML VIAL IVP SCH (08:23)
[2019-02-06] MEDS: cefTRIAXone 1,000 MG in Water for inj. (sterile) 10 ML IVP SCH (08:23)
[2019-02-06] MEDS ORDERED: Potassium Chloride Elixir 20 MEQ/15 ML UDC PO SCH (08:30)
== END 2019-02-06 12:16 | disposition home or self-care (01) | DRG 871 ==
LOC: 3ANU 14:20 → EMEROOARM 14:20 → 3ANU 20:37
PROVIDERS: ADMIT Family Medicine; ATTEND Family Medicine

== ENCOUNTER 2019-05-25 21:18 | Inpatient (IN) ==
[2019-05-26 00:36] LABS: Basophils % 0.2 %; Eosinophils # 0.1 K/mcL (0.0-0.6); Eosinophils % 0.4 %; Hematocrit 42.1 % (37.5-50.1); Hemoglobin 13.9 g/dL (12.9-16.9); Immature Granulocytes % 0.6 % (0-4); Lymphocytes # 1.7 K/mcL (0.6-4.6); Lymphocytes % 13.4 %; Mean Corpuscular Hemoglobin 30.6 pg (28.0-33.3); Mean Corpuscular Volume 92.7 fL (83.0-100.0); Mean Platelet Volume 9.5 fL (9.4-12.4); Monocytes # 1.1 K/mcL (0.0-1.3); Monocytes % 9.2 %; Neutrophils # 9.4 K/mcL (1.6-8.9); Platelet Count 188 K/mcL (140-400); Red Blood Count 4.54 M/mcL (4.19-5.50); Red Cell Distribution Width 12.5 % (11.5-14.5); Segmented Neutrophils % 76.2 %; White Blood Count 12.4 K/mcL (4.3-11.1)
[2019-05-26 00:39] LABS: BUN/Creatinine Ratio 16 (6-26); Blood Urea Nitrogen 16 mg/dL (8-23); Calcium 9.6 mg/dL (8.6-10.3); Carbon Dioxide 25 mEq/L (23-29); Chloride 104 mEq/L (98-107); Glucose 108 mg/dL (70-105); Osmolality,Calculated 282 (280-300); Sodium 135 mEq/L (136-145); eGFR For African Americans > 60 (> 60); eGFR For Non-African Americans > 60 (> 60)
[2019-05-26] MEDS ORDERED: Ondansetron ODT 4 MG TAB.RAPDIS SL PRN (01:51)
[2019-05-26] MEDS ORDERED: Naloxone 0.4 MG/ML INJ IVP PRN (01:51)
[2019-05-26 05:09] LABS: Prothrombin Time 11.8 Seconds (9.4-12.1)
[2019-05-26 05:24] LABS: Magnesium 1.8 mg/dL (1.6-2.6); Phosphorous 2.9 mg/dL (2.7-4.5)
[2019-05-26 16:30] LABS: Bilirubin,Urine Negative (Negative); Blood,Urine Negative (Negative); Clarity,Urine Clear (Clear); Color,Urine Yellow (Yellow); Glucose,Urine (UA) Normal (Normal); Ketones,Urine Negative (Negative); Leukocyte Esterase,Urine Negative (Negative); Nitrite,Urine Negative (Negative); PH,Urine 7.5 pH Units (5.0-8.0); Protein,Urine Negative (Neg-Trace); Specific Gravity,Urine 1.014 (1.010-1.025); Urobilinogen,Urine Normal (Normal)
[2019-05-26] MEDS ORDERED: *HR* Metoprolol 5 MG/5 ML VIAL IVP STA (17:45)
[2019-05-26] MEDS ORDERED: *HR* Metoprolol 5 MG/5 ML VIAL IVP ONE (17:47)
[2019-05-26] MEDS ORDERED: *HR* Metoprolol 5 MG/5 ML VIAL IVP PRN (18:00)
[2019-05-26] MEDS: Metoprolol XL (24 HR) Succ 50 MG TAB.ER.24H PO SCH (18:26)
[2019-05-26] MEDS: amLODIPine 5 MG TABLET PO SCH (18:50)
[2019-05-26] MEDS: *HR* Heparin 5,000 UNIT/ML VIAL SQ SCH (22:02)
[2019-05-27 05:36] LABS: Basophils % 0.3 %; Eosinophils # 0.1 K/mcL (0.0-0.6); Eosinophils % 1.3 %; Hematocrit 39.9 % (37.5-50.1); Hemoglobin 13.6 g/dL (12.9-16.9); Immature Granulocytes % 0.2 % (0-4); Lymphocytes # 1.7 K/mcL (0.6-4.6); Lymphocytes % 16.3 %; Mean Corpuscular HGB Conc 34.1 g/dL (31.6-35.5); Mean Corpuscular Hemoglobin 30.9 pg (28.0-33.3); Mean Corpuscular Volume 90.7 fL (83.0-100.0); Mean Platelet Volume 9.9 fL (9.4-12.4); Monocytes # 0.9 K/mcL (0.0-1.3); Monocytes % 8.4 %; Neutrophils # 7.7 K/mcL (1.6-8.9); Platelet Count 185 K/mcL (140-400); Segmented Neutrophils % 73.5 %; White Blood Count 10.5 K/mcL (4.3-11.1)
[2019-05-27 06:12] LABS: BUN/Creatinine Ratio 21 (6-26); Blood Urea Nitrogen 23 mg/dL (8-23); Calcium 9.4 mg/dL (8.6-10.3); Carbon Dioxide 24 mEq/L (23-29); Chloride 103 mEq/L (98-107); Glucose 101 mg/dL (70-105); Magnesium 1.9 mg/dL (1.6-2.6); Osmolality,Calculated 286 (280-300); Phosphorous 3.4 mg/dL (2.7-4.5); Potassium 3.9 mEq/L (3.5-5.1); Sodium 136 mEq/L (136-145); eGFR For African Americans > 60 (> 60); eGFR For Non-African Americans > 60 (> 60)
[2019-05-27 06:35] LABS: Estimated Average Glucose 126 mg/dl
[2019-05-27] MEDS ORDERED: *HR* OxyCODONE Immed Rel 5 MG TABLET PO PRN ×2 (07:08→10:40)
[2019-05-27] MEDS ORDERED: Ondansetron 4 MG/2 ML VIAL IVP ONE ×2 (07:08→10:40)
[2019-05-27] MEDS ORDERED: *HR* Labetalol 20 MG/4 ML SYRINGE IVP PRN ×2 (07:08→10:40)
[2019-05-27] MEDS: Metoprolol XL (24 HR) Succ 50 MG TAB.ER.24H PO SCH ×2 (07:19→20:29)
[2019-05-27] MEDS ORDERED: Famotidine 20 MG/2 ML VIAL ONE (07:32)
[2019-05-27] MEDS ORDERED: Acetaminophen IV 1,000 MG/100 ML INFUS..BTL ONE (07:32)
[2019-05-27] MEDS ORDERED: Ondansetron 4 MG/2 ML VIAL ONE (07:37)
[2019-05-27] MEDS ORDERED: *HR* FentaNYL (PF) 100 MCG/2 ML VIAL ONE ×2 (07:37→09:17)
[2019-05-27] MEDS ORDERED: Dexamethasone 4 MG/ML VIAL ONE (07:37)
[2019-05-27] MEDS ORDERED: *HR* Propofol 200 MG/20 ML VIAL IVP ONE (07:37)
[2019-05-27] MEDS ORDERED: *HR* Succinylcholine 200 MG/10 ML VIAL IVP ONE (07:37)
[2019-05-27] MEDS ORDERED: Lidocaine -MPF 2% 2 ML VIAL ONE ×2 (07:37→07:46)
[2019-05-27] MEDS ORDERED: Lidocaine HCL 4 ML Topical Solution (Laryng-O-Jet Kit Sterile Pak) TP ONE (07:38)
[2019-05-27] MEDS ORDERED: *HR* PHENYLEPHRINE 1,000 MCG/10 ML SYRINGE IVP ONE ×2 (07:40→08:46)
[2019-05-27] MEDS: *HR* Heparin 5,000 UNIT/ML VIAL SQ SCH ×2 (07:53→16:17)
[2019-05-27] MEDS ORDERED: ceFAZolin 2,000 MG in 0.9 % Sodium Chloride 100 ML IVPB ONE (08:02)
[2019-05-27] MEDS: amLODIPine 5 MG TABLET PO SCH (10:27)
[2019-05-27] MEDS ORDERED: *HR* Metoprolol 5 MG/5 ML VIAL IVP PRN (10:40)
[2019-05-27] MEDS ORDERED: Ondansetron ODT 4 MG TAB.RAPDIS SL PRN (10:40)
[2019-05-27] MEDS ORDERED: Naloxone 0.4 MG/ML INJ IVP PRN (10:40)
[2019-05-27] MEDS: ceFAZolin 2,000 MG in 0.9 % Sodium Chloride 100 ML IVPB SCH (16:17)
[2019-05-28] MEDS: ceFAZolin 2,000 MG in 0.9 % Sodium Chloride 100 ML IVPB SCH ×2 (00:43→07:38)
[2019-05-28 02:12] LABS: Bilirubin,Urine Negative (Negative); Blood,Urine Negative (Negative); Clarity,Urine Clear (Clear); Color,Urine Yellow (Yellow); Glucose,Urine (UA) Normal (Normal); Ketones,Urine Negative (Negative); Leukocyte Esterase,Urine Negative (Negative); Nitrite,Urine Negative (Negative); PH,Urine 6.5 pH Units (5.0-8.0); Protein,Urine Negative (Neg-Trace); Specific Gravity,Urine 1.017 (1.010-1.025); Urobilinogen,Urine Normal (Normal)
[2019-05-28 05:53] LABS: Basophils % 0.2 %; Eosinophils % 0.2 %; Hematocrit 37.8 % (37.5-50.1); Hemoglobin 12.9 g/dL (12.9-16.9); Immature Granulocytes % 0.2 % (0-4); Lymphocytes % 16.9 %; Mean Corpuscular HGB Conc 34.1 g/dL (31.6-35.5); Mean Corpuscular Hemoglobin 31.2 pg (28.0-33.3); Mean Corpuscular Volume 91.3 fL (83.0-100.0); Monocytes # 1.3 K/mcL (0.0-1.3); Neutrophils # 8.6 K/mcL (1.6-8.9); Platelet Count 188 K/mcL (140-400); Red Blood Count 4.14 M/mcL (4.19-5.50); Red Cell Distribution Width 12.9 % (11.5-14.5); Segmented Neutrophils % 71.5 %
[2019-05-28] MEDS: *HR* Heparin 5,000 UNIT/ML VIAL SQ SCH (06:11)
[2019-05-28 06:26] LABS: BUN/Creatinine Ratio 25 (6-26); Blood Urea Nitrogen 33 mg/dL (8-23); Calcium 9.3 mg/dL (8.6-10.3); Carbon Dioxide 23 mEq/L (23-29); Chloride 103 mEq/L (98-107); Glucose 112 mg/dL (70-105); Osmolality,Calculated 288 (280-300); Phosphorous 3.6 mg/dL (2.7-4.5); Potassium 4.2 mEq/L (3.5-5.1); Sodium 135 mEq/L (136-145); eGFR For African Americans > 60 (> 60); eGFR For Non-African Americans 53 (> 60)
[2019-05-28] MEDS: Metoprolol XL (24 HR) Succ 50 MG TAB.ER.24H PO SCH (07:40)
[2019-05-28] MEDS ORDERED: amLODIPine 5 MG TABLET PO SCH (09:00)
[2019-05-28] MEDS ORDERED: polyethylene glycoL 3350 17 GM POWD.PACK PO SCH (09:00)
[2019-05-28 15:05] VITALS: BP 115/73
== END 2019-05-28 17:15 | disposition home or self-care (01) | DRG 482 ==
LOC: 3NENU 21:18 → EMEROOARM 21:18 → 3NENU 05-26 02:10
PROVIDERS: ADMIT Internal Medicine; ATTEND Internal Medicine

== ENCOUNTER 2021-01-23 00:44 | Inpatient (IN) ==
[2021-01-23] MEDS ORDERED: 0.9 % Sodium Chloride 1,000 ML IVC ONE ×2 (01:40→05:01)
[2021-01-23 01:43] LABS: Basophils % 0.1 %; Hematocrit 43.5 % (37.5-50.1); Hemoglobin 14.3 g/dL (12.9-16.9); Immature Granulocytes % 0.5 % (0-4); Lymphocytes # 1.6 K/mcL (0.6-4.6); Lymphocytes % 11.7 %; Mean Corpuscular HGB Conc 32.9 g/dL (31.6-35.5); Mean Corpuscular Hemoglobin 30.2 pg (28.0-33.3); Monocytes % 7.1 %; Neutrophils # 11.1 K/mcL (1.6-8.9); Platelet Count 342 K/mcL (140-400); Red Blood Count 4.73 M/mcL (4.19-5.50); Red Cell Distribution Width 13.2 % (11.5-14.5); Segmented Neutrophils % 80.6 %; White Blood Count 13.7 K/mcL (4.3-11.1)
[2021-01-23 01:59] LABS: Albumin 4.2 g/dL (3.5-5.7); Albumin/Globulin Ratio 1.2 (1.1-2.2); Bilirubin,Direct 0.1 mg/dL (0.0-0.2); Bilirubin,Indirect 0.7 mg/dL (0.0-1.0); Bilirubin,Total 0.8 mg/dL (0.3-1.0); Globulin 3.5 g/dL (2.4-3.5); Total Protein 7.7 g/dL (6.4-8.9)
[2021-01-23 02:01] LABS: BUN/Creatinine Ratio 16 (6-26); Blood Urea Nitrogen 20 mg/dL (8-23); Calcium 9.9 mg/dL (8.6-10.3); Carbon Dioxide 25 mEq/L (23-29); Chloride 99 mEq/L (98-107); Glucose 143 mg/dL (70-105); Osmolality,Calculated 283 (280-300); Potassium 4.6 mEq/L (3.5-5.1); Sodium 134 mEq/L (136-145); eGFR For African Americans > 60 (> 60); eGFR For Non-African Americans 55 (> 60)
[2021-01-23 02:02] LABS: Troponin I < 0.03 ng/mL (< 0.04)
[2021-01-23] MEDS ORDERED: Isovue-370 500 ML BOTTLE IVP ONE (02:08)
[2021-01-23 02:28] LABS: Adenovirus Not Detected (Not Detect); Bordetella Pertussis Not Detected (Not Detect); Chlamydophila pneumoniae Not Detected (Not Detect); Coronavirus 229E Not Detected (Not Detect); Coronavirus HKU1 Not Detected (Not Detect); Coronavirus NL63 Not Detected (Not Detect); Coronavirus OC43 Not Detected (Not Detect); Human Metapneumovirus Not Detected (Not Detect); Human Rhinovirus/Enterovirus Not Detected (Not Detect); Influenza A Subtype 2009 H1 Not Detected (Not Detect); Influenza B Not Detected (Not Detect); Mycoplasma pneumoniae Not Detected (Not Detect); Parainfluenza Virus 1 Not Detected (Not Detect); Parainfluenza Virus 2 Not Detected (Not Detect); Parainfluenza Virus 3 Not Detected (Not Detect); Parainfluenza Virus 4 Not Detected (Not Detect); Respiratory Syncytial Virus Not Detected (Not Detect); SARS-CoV-2 Not Detected (Not Detect)
[2021-01-23 03:02] LABS: Bacteria,Urine Few per hpf (None-Few); Bilirubin,Urine Negative (Negative); Blood,Urine Negative (Negative); Clarity,Urine Clear (Clear); Color,Urine Yellow (Yellow); Glucose,Urine (UA) Normal (Normal); Hyaline Casts,Urine Few per lpf (None Seen); Ketones,Urine Trace mg/dL (Negative); Leukocyte Esterase,Urine Negative (Negative); Mucus,Urine Moderate per lpf (None-Few); Nitrite,Urine Negative (Negative); Protein,Urine 50 mg/dL (Neg-Trace); RBC,Urine 0-3 per hpf (0-3); Specific Gravity,Urine > 1.030 (1.010-1.025); Squamous Epithelial Cell,Urine Few per hpf (None-Few); Urobilinogen,Urine Normal (Normal); WBC,Urine 0-3 per hpf (0-3)
[2021-01-23] MEDS ORDERED: cefTRIAXone 1,000 MG in Water for inj. (sterile) 10 ML IVP ONE (03:20)
[2021-01-23] MEDS ORDERED: MetroNIDAZOLE 500 MG/100 ML 500 MG/100 ML BAG IVPB ONE (04:06)
[2021-01-23] MEDS ORDERED: Ondansetron ODT 4 MG TAB.RAPDIS SL PRN ×2 (05:24→17:30)
[2021-01-23] MEDS ORDERED: Naloxone 0.4 MG/ML INJ IVP PRN ×3 (05:24→17:30)
[2021-01-23] MEDS ORDERED: Melatonin 3 MG TABLET PO PRN ×2 (05:24→21:00)
[2021-01-23] MEDS ORDERED: 0.9 % Sodium Chloride 1,000 ML IVC SCH (05:30)
[2021-01-23] MEDS ORDERED: Piperacillin/Tazobactam 3.375 GM in Water for inj. (sterile) 20 ML IVP ONE (06:00)
[2021-01-23 07:07] LABS: INR 1.2; Prothrombin Time 13.3 Seconds (9.4-12.1)
[2021-01-23] MEDS ORDERED: Metoprolol XL (24 HR) Succ 50 MG TAB.ER.24H PO SCH (09:00)
[2021-01-23] MEDS ORDERED: amLODIPine 5 MG TABLET PO SCH (09:00)
[2021-01-23] MEDS ORDERED: methylPREDNISolone 125 MG/2 ML VIAL IM ONE (09:37)
[2021-01-23] MEDS: Ipratropium/Albuterol Neb 3 ML IH SCH ×3 (10:26→20:19)
[2021-01-23] MEDS ORDERED: Lidocaine -MPF 2% 5 ML VIAL ONE (12:18)
[2021-01-23] MEDS ORDERED: Ondansetron 4 MG/2 ML VIAL ONE (12:18)
[2021-01-23] MEDS ORDERED: *HR* Propofol 200 MG/20 ML VIAL IVP ONE (12:18)
[2021-01-23] MEDS ORDERED: *HR* FentaNYL (PF) 100 MCG/2 ML VIAL ONE (12:18)
[2021-01-23] MEDS ORDERED: *HR* Rocuronium Bromide 50 MG/5 ML VIAL ONE (12:18)
[2021-01-23] MEDS ORDERED: Lidocaine -MPF 4% 5 ML AMPUL ONE (12:18)
[2021-01-23] MEDS ORDERED: Nitroglycerin 0.4 MG TAB.SUBL SL PRN (13:02)
[2021-01-23] MEDS ORDERED: *HR* FentaNYL (PF) 100 MCG/2 ML VIAL IVP PRN (13:02)
[2021-01-23] MEDS ORDERED: Ondansetron 4 MG/2 ML VIAL IVP PRN (13:02)
[2021-01-23] MEDS ORDERED: Albuterol 2.5 MG/3 ML NEBULIZER IH PRN (13:02)
[2021-01-23] MEDS ORDERED: Acetaminophen IV 1,000 MG/100 ML BAG IVPB ONE (13:50)
[2021-01-23] MEDS ORDERED: Sugammadex Sodium 200 MG/2 ML VIAL IV ONE (14:14)
[2021-01-23] MEDS ORDERED: *HR* OxyCODONE/APAP 5/325 TABLET PO PRN (17:30)
[2021-01-23] MEDS: Metoprolol XL (24 HR) Succ 50 MG TAB.ER.24H PO SCH (21:30)
[2021-01-24] MEDS: 0.9 % Sodium Chloride 1,000 ML IVC SCH ×2 (01:29→14:31)
[2021-01-24] MEDS: Ipratropium/Albuterol Neb 3 ML IH SCH ×2 (04:25→20:13)
[2021-01-24 07:02] LABS: Basophils % 0.1 %; Hematocrit 32.8 % (37.5-50.1); Immature Granulocytes % 0.8 % (0-4); Lymphocytes # 1.4 K/mcL (0.6-4.6); Lymphocytes % 9.4 %; Mean Corpuscular HGB Conc 33.5 g/dL (31.6-35.5); Mean Corpuscular Hemoglobin 30.7 pg (28.0-33.3); Mean Corpuscular Volume 91.6 fL (83.0-100.0); Mean Platelet Volume 9.2 fL (9.4-12.4); Monocytes # 0.8 K/mcL (0.0-1.3); Monocytes % 5.5 %; Platelet Count 249 K/mcL (140-400); Red Blood Count 3.58 M/mcL (4.19-5.50); Red Cell Distribution Width 13.6 % (11.5-14.5); Segmented Neutrophils % 84.2 %; White Blood Count 14.3 K/mcL (4.3-11.1)
[2021-01-24 07:21] LABS: Alanine Aminotransferase 12 Units/L (7-52); Albumin 3.2 g/dL (3.5-5.7); Albumin/Globulin Ratio 1.1 (1.1-2.2); Alkaline Phosphatase 60 Units/L (34-104); Aspartate Amino Transferase 35 Units/L (13-39); BUN/Creatinine Ratio 25 (6-26); Bilirubin,Total 0.6 mg/dL (0.3-1.0); Blood Urea Nitrogen 28 mg/dL (8-23); Calcium 8.9 mg/dL (8.6-10.3); Carbon Dioxide 24 mEq/L (23-29); Chloride 106 mEq/L (98-107); Globulin 2.9 g/dL (2.4-3.5); Glucose 91 mg/dL (70-105); Osmolality,Calculated 289 (280-300); Potassium 3.9 mEq/L (3.5-5.1); Sodium 137 mEq/L (136-145); Total Protein 6.1 g/dL (6.4-8.9); eGFR For African Americans > 60 (> 60); eGFR For Non-African Americans > 60 (> 60)
[2021-01-24] MEDS: Metoprolol XL (24 HR) Succ 50 MG TAB.ER.24H PO SCH ×2 (07:56→21:19)
[2021-01-24] MEDS: Piperacillin/Tazobactam 3.375 GM in 0.9 % Sodium Chloride Mini Bag 100 ML IVPB SCH ×2 (07:57→08:04)
[2021-01-24] MEDS ORDERED: amLODIPine 5 MG TABLET PO SCH (09:00)
[2021-01-24] MEDS ORDERED: Ipratropium/Albuterol Neb 3 ML IH SCH ×2 (10:00→18:00)
[2021-01-24] MEDS ORDERED: predniSONE 20 MG TABLET PO SCH (15:15)
[2021-01-24] MEDS ORDERED: *HR* LORazepam 2 MG/ML VIAL IVP ONE (21:58)
[2021-01-25] MEDS: DilTIAZem 50 MG/50 ML IV.SOLN IVC SCH ×3 (00:18→07:41)
[2021-01-25 00:19] LABS: ABG Base Excess -4 mEq/L (-2 to 3); ABG HCO3 21 mEq/L (21-27); ABG Oxygen Saturation 84 % (95-98); ABG PCO2 34 mmHg (35-45); ABG PO2 48 mmHg (85-104); ABG TCO2 22 mEq/L (20-26)
[2021-01-25] MEDS ORDERED: *HR* LORazepam 2 MG/ML VIAL IM STA (03:33)
[2021-01-25] MEDS ORDERED: Haloperidol Lactate 5 MG/ML VIAL IM ONE (03:37)
[2021-01-25] MEDS: Ipratropium/Albuterol Neb 3 ML IH SCH ×4 (03:39→19:48)
[2021-01-25 05:23] LABS: Hematocrit 32.9 % (37.5-50.1); Mean Corpuscular HGB Conc 33.4 g/dL (31.6-35.5); Mean Corpuscular Volume 92.7 fL (83.0-100.0); Mean Platelet Volume 9.1 fL (9.4-12.4); Platelet Count 278 K/mcL (140-400); Red Blood Count 3.55 M/mcL (4.19-5.50); Red Cell Distribution Width 13.6 % (11.5-14.5); White Blood Count 10.4 K/mcL (4.3-11.1)
[2021-01-25 05:41] LABS: BUN/Creatinine Ratio 28 (6-26); Blood Urea Nitrogen 32 mg/dL (8-23); Calcium 8.9 mg/dL (8.6-10.3); Carbon Dioxide 22 mEq/L (23-29); Chloride 109 mEq/L (98-107); Glucose 125 mg/dL (70-105); Osmolality,Calculated 294 (280-300); Sodium 138 mEq/L (136-145); eGFR For African Americans > 60 (> 60); eGFR For Non-African Americans 60 (> 60)
[2021-01-25] MEDS ORDERED: Piperacillin/Tazobactam 3.375 GM in 0.9 % Sodium Chloride Mini Bag 100 ML IVPB SCH (08:00)
[2021-01-25] MEDS: MethylPREDNISolone 40 MG/ML VIAL IVP SCH ×2 (08:50→16:26)
[2021-01-25] MEDS: Metoprolol XL (24 HR) Succ 50 MG TAB.ER.24H PO SCH ×2 (08:54→20:08)
[2021-01-25] MEDS ORDERED: Ringers Solution, Lactated 1,000 ML IVC SCH (12:30)
[2021-01-25] MEDS: Piperacillin/Tazobactam 3.375 GM in 0.9 % Sodium Chloride Mini Bag 100 ML IVPB SCH ×2 (13:15→20:52)
[2021-01-25] MEDS ORDERED: Isovue-370 500 ML BOTTLE IVP ONE (14:02)
[2021-01-25] MEDS ORDERED: 0.9 % Sodium Chloride 1,000 ML IVC SCH (14:15)
[2021-01-25] MEDS ORDERED: Haloperidol Lactate 5 MG/ML VIAL IVP PRN (16:33)
[2021-01-26] MEDS: MethylPREDNISolone 40 MG/ML VIAL IVP SCH ×3 (02:06→15:06)
[2021-01-26] MEDS: Ipratropium/Albuterol Neb 3 ML IH SCH ×4 (04:17→19:36)
[2021-01-26] MEDS ORDERED: *HR* Metoprolol 5 MG/5 ML VIAL IVP ONE (04:55)
[2021-01-26 05:59] LABS: Basophils % 0.1 %; Hemoglobin 9.8 g/dL (12.9-16.9); Immature Granulocytes % 0.9 % (0-4); Lymphocytes # 0.9 K/mcL (0.6-4.6); Lymphocytes % 11.4 %; Mean Corpuscular HGB Conc 32.7 g/dL (31.6-35.5); Mean Corpuscular Hemoglobin 29.9 pg (28.0-33.3); Mean Corpuscular Volume 91.5 fL (83.0-100.0); Mean Platelet Volume 9.2 fL (9.4-12.4); Monocytes # 0.2 K/mcL (0.0-1.3); Monocytes % 2.8 %; Neutrophils # 6.7 K/mcL (1.6-8.9); Platelet Count 303 K/mcL (140-400); Red Blood Count 3.28 M/mcL (4.19-5.50); Red Cell Distribution Width 13.4 % (11.5-14.5); Segmented Neutrophils % 84.8 %; White Blood Count 7.9 K/mcL (4.3-11.1)
[2021-01-26] MEDS: Piperacillin/Tazobactam 3.375 GM in 0.9 % Sodium Chloride Mini Bag 100 ML IVPB SCH ×3 (06:01→20:22)
[2021-01-26 06:14] LABS: BUN/Creatinine Ratio 30 (6-26); Blood Urea Nitrogen 38 mg/dL (8-23); Calcium 8.9 mg/dL (8.6-10.3); Carbon Dioxide 20 mEq/L (23-29); Chloride 109 mEq/L (98-107); Glucose 180 mg/dL (70-105); Osmolality,Calculated 300 (280-300); Sodium 138 mEq/L (136-145); eGFR For African Americans > 60 (> 60); eGFR For Non-African Americans 54 (> 60)
[2021-01-26] MEDS: Metoprolol XL (24 HR) Succ 50 MG TAB.ER.24H PO SCH ×2 (09:52→20:20)
[2021-01-26 11:22] VITALS: TEMP 98.5
[2021-01-27] MEDS: MethylPREDNISolone 40 MG/ML VIAL IVP SCH ×2 (01:23→09:40)
[2021-01-27] MEDS: Ipratropium/Albuterol Neb 3 ML IH SCH ×2 (03:29→08:19)
[2021-01-27 03:44] VITALS: BP 127/69; PULSE 86
[2021-01-27] MEDS: Piperacillin/Tazobactam 3.375 GM in 0.9 % Sodium Chloride Mini Bag 100 ML IVPB SCH (05:16)
[2021-01-27 06:28] LABS: Basophils % 0.1 %; Hematocrit 27.7 % (37.5-50.1); Hemoglobin 9.3 g/dL (12.9-16.9); Immature Granulocytes % 1.7 % (0-4); Lymphocytes # 0.6 K/mcL (0.6-4.6); Lymphocytes % 7.8 %; Mean Corpuscular HGB Conc 33.6 g/dL (31.6-35.5); Mean Corpuscular Hemoglobin 30.7 pg (28.0-33.3); Mean Corpuscular Volume 91.4 fL (83.0-100.0); Mean Platelet Volume 9.1 fL (9.4-12.4); Monocytes # 0.3 K/mcL (0.0-1.3); Monocytes % 3.5 %; Neutrophils # 7.1 K/mcL (1.6-8.9); Platelet Count 288 K/mcL (140-400); Red Blood Count 3.03 M/mcL (4.19-5.50); Red Cell Distribution Width 13.5 % (11.5-14.5); Segmented Neutrophils % 86.9 %; White Blood Count 8.1 K/mcL (4.3-11.1)
[2021-01-27 06:33] LABS: BUN/Creatinine Ratio 32 (6-26); Blood Urea Nitrogen 41 mg/dL (8-23); Carbon Dioxide 21 mEq/L (23-29); Chloride 111 mEq/L (98-107); Glucose 144 mg/dL (70-105); Osmolality,Calculated 305 (280-300); Potassium 3.3 mEq/L (3.5-5.1); Sodium 141 mEq/L (136-145); eGFR For African Americans > 60 (> 60); eGFR For Non-African Americans 53 (> 60)
[2021-01-27 08:26] VITALS: O2SAT 93
[2021-01-27] MEDS: Metoprolol XL (24 HR) Succ 50 MG TAB.ER.24H PO SCH (09:39)
== END 2021-01-27 16:00 | disposition home health service (06) | DRG 853 ==
LOC: EMEROOARM 00:44 → 3NENU 00:44 → SUATTDRO 05:10 → 3NENU 05:54 → SUATTDRO 01-25 10:53
PROVIDERS: ADMIT Family Medicine; ATTEND Internal Medicine